=== PATIENT | male | born 1935 | race Caucasian/White ===

== ENCOUNTER 2019-10-01 05:47 | Day surgery (SDC) | payer SELFPAY | END 2019-10-01 09:29 | disposition home or self-care (01) | PROVIDERS: Family Provider Family Medicine; Visit Provider Thoracic Surgery (Cardiothoracic Vascular Surgery) | DX: T82.897A Other specified complication of cardiac prosthetic devices, implants and grafts, initial encounter (principal); Z87.891 Personal history of nicotine dependence; J44.9 Chronic obstructive pulmonary disease, unspecified; I25.2 Old myocardial infarction; I48.91 Unspecified atrial fibrillation; I11.0 Hypertensive heart disease with heart failure; I50.9 Heart failure, unspecified; Z79.01 Long term (current) use of anticoagulants; I25.10 Atherosclerotic heart disease of native coronary artery without angina pectoris; Z82.49 Family history of ischemic heart disease and other diseases of the circulatory system | CPT/HCPCS: 11042; 36415 ×2; 80048; 81003; 85025; 85610; 85730; J0690; J2001 ×2; J2704; J3010; J3370 ==

== ENCOUNTER → 2019-12-16 09:23 | Outpatient (BNVA) | payer MEDICARE, BC, SELFPAY | PROVIDERS: Family Provider Family Medicine; PCP Family Medicine; Visit Provider Urology | DX: C67.2 Malignant neoplasm of lateral wall of bladder (principal) | CPT/HCPCS: 81001 ==

== ENCOUNTER 2020-03-19 09:27 | Outpatient (CLI) | payer MEDICARE, BC, SELFPAY | END 2020-03-19 09:28 | disposition home or self-care (01) | LOC: LAB 09:28 | PROVIDERS: PCP Family Medicine; Visit Provider Internal Medicine Pulmonary Disease | DX: Z01.89 Encounter for other specified special examinations (principal) | CPT/HCPCS: 36415; 87015; 87102; 87107; 87116; 87206; 87801 ==

== ENCOUNTER → 2020-06-23 14:51 | Outpatient (BNVA) | payer MEDICARE, BC, SELFPAY | PROVIDERS: PCP Family Medicine; Visit Provider Urology | DX: C67.2 Malignant neoplasm of lateral wall of bladder (principal); N20.1 Calculus of ureter; N40.1 Benign prostatic hyperplasia with lower urinary tract symptoms | CPT/HCPCS: 81001 ==

== ENCOUNTER → 2020-07-31 14:35 | Outpatient (BNVA) | payer MEDICARE, BC, SELFPAY | PROVIDERS: PCP Family Medicine; Visit Provider Urology | DX: C67.9 Malignant neoplasm of bladder, unspecified (principal); N40.1 Benign prostatic hyperplasia with lower urinary tract symptoms | CPT/HCPCS: 81003 ==

== ENCOUNTER 2020-08-05 12:09 | Outpatient (CLI) | payer MEDICARE, BC, SELFPAY ==
--- NOTE | 2020-08-05 12:30 | CT_ITS ---
WS: [id number] CT scan of the chest without IV contrast, additional two-dimensional coronal and sagittal reconstruct ion was performed. 08/05/2020 Clinical Data: Lung cancer Comparison: CT chest, 12/04/2015. DLP: 720.[address] scans at [facility] use at least one of these dose optimization techniques: automat ed exposure control; mA and/or kV adjustment per patient size (includes targeted exams where dose is matched to clinical indication); or iterative reconstruction. Findings: There are severe emphysematous changes throughout both lungs. There are 2 pleural-based densities in the right upper lobe with significant interstitial changes throughout the right upper lobe. There is bilateral hilar, middle mediastinal and subcarinal adenopathy. There is a 0.8 cm nodule in the lingul a. No effusions are seen. The heart is enlarged with pacemaker wires within. There are coronary arter y calcifications. The pulmonary artery is enlarged to 3.5 cm. The thoracic aorta shows calcification in the wall but no aneurysm. No pericardial effusion is present. There is coronary artery calcificati on. The upper abdomen demonstrate no change from before. The bones of the thorax show osteoarthritic change but no metastatic disease. CT/CT chest wo con [id number] Impression: 1. Severe emphysema throughout both lungs. 2. Pleural-based densities and scarring in right upper lobe with significant in terstitial change throughout the right upper lobe. 3. Hilar, middle mediastinal and subcarinal adenopathy. 4. 0.8 cm lingular nodule. 5. Cardiomegaly with pulmonary artery enlargement.
== END 2020-08-05 12:10 | disposition home or self-care (01) ==
LOC: RADWPI 12:18
PROVIDERS: PCP Family Medicine; Visit Provider Internal Medicine Critical Care Medicine
DX: C34.90 Malignant neoplasm of unspecified part of unspecified bronchus or lung (principal); J43.9 Emphysema, unspecified; R59.0 Localized enlarged lymph nodes; I51.7 Cardiomegaly
CPT/HCPCS: 71250

== ENCOUNTER → 2020-12-16 14:18 | Outpatient (BNVA) | payer MEDICARE, BC, SELFPAY | PROVIDERS: PCP Family Medicine; Visit Provider Urology | DX: C67.4 Malignant neoplasm of posterior wall of bladder (principal); N40.1 Benign prostatic hyperplasia with lower urinary tract symptoms | CPT/HCPCS: 81003 ==

== ENCOUNTER 2021-03-05 15:05 | Outpatient (CLI) | payer MEDICARE, BC, SELFPAY ==
--- NOTE | 2021-03-05 15:11 | CT_ITS ---
WS: [id number] CT CHEST WITHOUT INTRAVENOUS CONTRAST HISTORY: Lung nodules TECHNIQUE: Contiguous 5 mm axial imaging performed on the thorax. Coronal and sagittal reformats are submitted. All CT scans at [facility] use at least one of these dose optimization techniq ues: automated exposure control; mA and/or kV adjustment per patient size (includes targeted exams wh ere dose is matched to clinical indication); or iterative reconstruction. CONTRAST: None DLP: 735.21 mGycm COMPARISON: 08/05/2020 and 12/04/2015, PET/CT 04/18/2020 Lungs and central airway: Severe chronic emphysema. Moderate fibrotic changes and slight volume loss of the RIGHT lung. 10 mm nodule at the RIGHT hilum. 14 mm nodule periphery the RIGHT upper lobe not s ignificantly changed. Additional 13 mm solid nodule periphery of the RIGHT upper lobe has slightly in creased in size since 08/05/2020. There is an additional irregular shaped opacification at the medial RIGHT lung base with calcification. This area measures 3.8 x 4.2 cm which is significantly progressed since the prior study. 8mm lingular nodule is stable. Pleura: Normal. No pleural effusion. Heart and pericardium: Severe cardiomegaly with cardiac pacer. The pulmonary artery is severely dilat ed measuring up to 3.8 cm. Extensive atherosclerosis of aorta with mild ectasia. Mediastinum and connor: Small axillary, mediastinal or hilar lymph nodes. No significant increase in si ze of the indeterminate RIGHT hilar lymph nodes measuring up to 10 mm. Vessels: Marked dilatation of the pulmonary artery measuring 3.8 cm. Extensive atherosclerosis aorta. Chest wall and lower neck: No interval change. Upper abdomen: Mild nodularity at the LEFT adrenal gland is unchanged. Unenhanced imaging of the live r is negative for masses. Osseous structures: Increase in thoracic kyphosis. Bones are osteopenic. CT/CT chest wo con [id number] IMPRESSION: 1. Stable lingular nodule at 8 mm. 2. 13 mm nodule RIGHT upper lobe is new since 08/05/2020. Metastatic or primary lung cancer should be considered. 3. Dense opacification at the medial RIGHT lung base measures 3.8 x 4.2 cm. Di fferential includes pneumonia and neoplastic disease. 4. Stable RIGHT upper lobe 14 mm nodule. 5. Severe cardiomegaly. 6. No increase in size of indeterminate hilar lymph nodes.
== END 2021-03-05 15:06 | disposition home or self-care (01) ==
LOC: RADWPI 15:11
PROVIDERS: PCP Family Medicine; Visit Provider Internal Medicine Critical Care Medicine
DX: J44.9 Chronic obstructive pulmonary disease, unspecified (principal); R91.8 Other nonspecific abnormal finding of lung field; I51.7 Cardiomegaly
CPT/HCPCS: 71250

== ENCOUNTER → 2021-03-17 15:37 | Outpatient (BNVA) | payer MEDICARE, BC, SELFPAY | PROVIDERS: PCP Family Medicine; Visit Provider Urology | DX: C67.4 Malignant neoplasm of posterior wall of bladder (principal); N40.1 Benign prostatic hyperplasia with lower urinary tract symptoms | CPT/HCPCS: 81003 ==

== ENCOUNTER 2021-06-15 15:37 | Outpatient (CLI) | payer MEDICARE, BC, SELFPAY ==
[2021-06-16 13:08] LABS: Alpha 1 Antitrypsin 114 mg/dL (83-199)
== END 2021-06-15 15:38 | disposition home or self-care (01) ==
LOC: LAB 15:44
PROVIDERS: PCP Family Medicine; Visit Provider Internal Medicine Critical Care Medicine
DX: J44.9 Chronic obstructive pulmonary disease, unspecified (principal)
CPT/HCPCS: 36415; 82103

== ENCOUNTER → 2021-10-26 15:10 | Outpatient (BNVA) | payer MEDICARE, BC, SELFPAY | PROVIDERS: PCP Family Medicine; Visit Provider Urology | DX: C67.4 Malignant neoplasm of posterior wall of bladder (principal); N40.1 Benign prostatic hyperplasia with lower urinary tract symptoms | CPT/HCPCS: 81003 ==

== ENCOUNTER → 2022-03-28 14:15 | Outpatient (BNVA) | payer MEDICARE, BC, SELFPAY | PROVIDERS: PCP Family Medicine; Visit Provider Internal Medicine Pulmonary Disease | DX: I48.91 Unspecified atrial fibrillation (principal); J44.9 Chronic obstructive pulmonary disease, unspecified; C34.90 Malignant neoplasm of unspecified part of unspecified bronchus or lung; I42.9 Cardiomyopathy, unspecified; I11.9 Hypertensive heart disease without heart failure; J96.11 Chronic respiratory failure with hypoxia; I50.9 Heart failure, unspecified; Z87.891 Personal history of nicotine dependence; E78.5 Hyperlipidemia, unspecified; I25.10 Atherosclerotic heart disease of native coronary artery without angina pectoris; I10 Essential (primary) hypertension; Z95.810 Presence of automatic (implantable) cardiac defibrillator; I50.22 Chronic systolic (congestive) heart failure | CPT/HCPCS: 99204; 99214 ==

== ENCOUNTER → 2022-06-29 12:38 | Outpatient (BNVA) | payer MEDICARE, BC, SELFPAY | PROVIDERS: PCP Family Medicine; Visit Provider Internal Medicine Pulmonary Disease | DX: J44.9 Chronic obstructive pulmonary disease, unspecified (principal); J96.11 Chronic respiratory failure with hypoxia; R91.8 Other nonspecific abnormal finding of lung field; Z87.891 Personal history of nicotine dependence; I25.5 Ischemic cardiomyopathy; I25.2 Old myocardial infarction; I25.10 Atherosclerotic heart disease of native coronary artery without angina pectoris; I48.20 Chronic atrial fibrillation, unspecified; Z79.01 Long term (current) use of anticoagulants; Z95.0 Presence of cardiac pacemaker; E88.01 Alpha-1-antitrypsin deficiency; Z53.29 Procedure and treatment not carried out because of patient's decision for other reasons | CPT/HCPCS: 99214 ==

== ENCOUNTER → 2022-09-16 11:01 | Outpatient (BNVA) | payer MEDICARE, BC, SELFPAY | PROVIDERS: PCP Family Medicine; Visit Provider Internal Medicine Cardiovascular Disease | DX: I42.9 Cardiomyopathy, unspecified (principal); I11.0 Hypertensive heart disease with heart failure; I50.22 Chronic systolic (congestive) heart failure; I25.10 Atherosclerotic heart disease of native coronary artery without angina pectoris; I25.2 Old myocardial infarction; Z87.891 Personal history of nicotine dependence; I48.21 Permanent atrial fibrillation; Z79.01 Long term (current) use of anticoagulants | CPT/HCPCS: 93284; 99214 ==

== ENCOUNTER → 2022-10-25 14:10 | Outpatient (BNVA) | payer MEDICARE, BC, SELFPAY | PROVIDERS: PCP Family Medicine; Visit Provider Urology | DX: C67.4 Malignant neoplasm of posterior wall of bladder (principal); N30.01 Acute cystitis with hematuria | CPT/HCPCS: 52000; 87086; 99213 ==

== ENCOUNTER → 2022-12-27 15:19 | Outpatient (BNVA) | payer MEDICARE, BC, SELFPAY | PROVIDERS: PCP Family Medicine; Visit Provider Internal Medicine Pulmonary Disease | DX: J44.9 Chronic obstructive pulmonary disease, unspecified (principal); J96.11 Chronic respiratory failure with hypoxia; R91.8 Other nonspecific abnormal finding of lung field; Z87.891 Personal history of nicotine dependence; I48.20 Chronic atrial fibrillation, unspecified; Z79.01 Long term (current) use of anticoagulants; I25.5 Ischemic cardiomyopathy; I25.2 Old myocardial infarction; I25.10 Atherosclerotic heart disease of native coronary artery without angina pectoris; Z95.810 Presence of automatic (implantable) cardiac defibrillator | CPT/HCPCS: 99214 ==

== ENCOUNTER 2023-01-19 07:02 | Outpatient (CLI) | payer MEDICARE, BC, SELFPAY ==
--- NOTE | 2023-01-19 | XR_ITS ---
WS: [id number] XR tibia fibula LT 2V [id number] REASON FOR EXAM: PAIN IN LEFT LEG FINDINGS: Tibia and fibula are intact without fracture, periosteal reaction, or focal bone lesion. Extensive arterial vascular calcification. XR/XR tibia fibula LT 2V [id number] IMPRESSION: No significant bone abnormality.
--- NOTE | 2023-01-19 | US_ITS ---
WS: [id number] LEFT LOWER EXTREMITY VENOUS ULTRASOUND EXAMINATION CLINICAL INFORMATION: PAIN IN LOWER LIMB COMPARISON: None. FINDINGS: Thigh veins The left common femoral, femoral, popliteal, proximal medial saphenous, deep femoral veins are patent and free of thrombus. The veins are normally compressible, and have normal phasic flow and augmentat ion response. Calf veins The paired peroneal and posterior tibial calf veins are patent bilaterally. Subcutaneous edema in the area of pain LEFT anterior lower leg with suspected underlying heterogeneou s hematoma measuring 6.8 x 2.1 x 3.7 cm US/ROR venous duplex LE IMPRESSION: Technically difficult study 1. No evidence of LEFT lower extremity DVT. 2. Suspected hematoma in the area of pain measuring 6.8 x 2.1 x 3.7 cm
== END 2023-01-19 07:03 | disposition home or self-care (01) ==
LOC: RADOUTREAD 01-20 07:05
PROVIDERS: PCP Family Medicine; Visit Provider Nurse Practitioner Family
DX: C67.2 Malignant neoplasm of lateral wall of bladder (principal); N30.01 Acute cystitis with hematuria
CPT/HCPCS: 52000

== ENCOUNTER 2023-01-28 12:40 | Emergency (ER) | payer MEDICARE, BC, SELFPAY ==
[2023-01-28 12:41] VITALS: BP 110/50; PULSE 69; RESP 18; TEMP 37.1; O2SAT 96
[2023-01-28 13:05] VITALS: BP 110/50; PULSE 88; RESP 14; O2SAT 95
--- NOTE | 2023-01-28 13:08 | ED_ITS ---
HPI - Extremity Problem General: Chief complaint: Extremity Problem,Nontraumatic Stated complaint: LEFT LEG SWELLING Time Seen by Provider: 01/28/23 12:43 History of Present Illness: Patient comes in with redness, swelling, and pain in his left lower extremity. States that a couple weeks ago he noticed a bruise to his left lower leg. States he was seen and had an x-ray and an ultrasound that were both unremarkable. States that over the last week or so he has noticed the area b ecoming more red and swollen. States he started taken Bactrim that he has at home 3 days ago but only takes it once a day and does not take it regularly. 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 CHF (congestive heart failure) Coronary artery disease Dyslipidemia Dyspnea Emphysema (subcutaneous) (surgical) resulting from a procedure Erectile dysfunction Hypertension Lung nodule Malignant neoplasm of posterior wall of urinary bladder Myocardial infarction Obstructive sleep apnea Oxygen dependent Pacemaker Surgical History Status post biventricular cardiac pacemaker insertion Family History Mother CAD (coronary artery disease) Social History Smoking and tobacco status: former smoker Quit status (tobacco): has quit using tobacco Year quit tobacco: 1994 - .5 PPD x 40 Years Alcohol intake: current Alcohol intake frequency: 0-2 Drinks per Day Substance/Drug Use: never Adopted: No Caregiver/support person: No Lives independently: No Household members: spouse Marital status: / Current occupational status: retired Do you think of yourself as: Straight/Heterosexual Current gender identity: Male Physical Exam Const: COMMON NORMALS: no acute distress, patient oriented x3 and alert HENMT: COMMON NORMALS: normocephalic and atraumatic HEAD & SCALP: normocephalic and atraumatic Eye: COMMON NORMALS: Equal, round and reactive pupils present and EOMs intact bilaterally PUPIL: Yes Equal, round and reactive pupils present Neck/C-Spine: COMMON NORMALS: full ROM and supple Cardio: COMMON NORMALS: regular rate and regular rhythm RATE: regular rate RHYTHM: regular rhythm GI: COMMON NORMALS: Normal to inspection, nondistended, normoactive bowel sounds present, Soft to palpation and non-tender PALPATION: Yes Soft to palpation Extremity: COMMON NORMALS: full ROM OTHER: erythema, heat to touch, and swelling of his left lower leg. He also has bruising in the toes of his left foot Neuro: COMMON NORMALS: patient oriented x3 SENSORIUM/ORIENTATION: Yes alert Psych: COMMON NORMALS: mental status grossly normal and cooperative Course Vital Signs: Vital signs: Vital Signs Temperature 98.7 F 01/28/23 12:41 Pulse Rate 69 01/28/23 12:41 Respiratory Rate 18 01/28/23 12:41 Blood Pressure 110/50 01/28/23 12:41 Pulse Oximetry 96 01/28/23 12:41 Oxygen Delivery Me thod Nasal Cannula 01/28/23 12:41 Oxygen Flow Rate 3 01/28/23 12:41 MDM - Extremity (Nontraumatic) Medical Decision Making Patient comes in with redness, swelling, and pain in his left lower extremity. States that a couple weeks ago he noticed a bruise to his left lower leg. States he was seen and had an x-ray and an ultrasound that were both unremarkable. States that over the last week or so he has noticed the area becoming more red and swollen. States he started taken Bactrim that he has at home 3 days ago but only takes it once a day and does not take it regularly. On physical exam he has erythema, heat to touch, and swelling of his left lower leg. He also has bruising in the toes of his left foot likely secondary to the injury to his left lower leg. Patient is on a blood thinner, and it appears that what started out as a mechanical injury has become a cellulitis. The patient states he would just like me to get him on some antibiotics and let him go home. He denies fever, vomiting, worsening shortness of breath or other symptoms. Will start him on clindamycin 450 mg 3 times a day for 5 days according to up-to-date. We will also treat pain with p.o. Toradol. Will discharge home at this time with precautions to return for worsening or changing symptoms. Discharge Plan Discharge Patient Disposition: Home Clinical Impression: Cellulitis of left leg Condition: Stable Prescriptions: New clindamycin HCl 150 mg capsule 450 mg PO Q8H 5 Days Qty: 45 0RF tramadol 50 mg tablet 25 mg PO Q6H PRN (Reason: pain) Qty: 7 0RF No Action (DME) oxygen-air delivery systems Device See Rx Instructions .ROUTE .MEDSUPPLY Qty: 1 Rx Instructions: As directed levothyroxine [Synthroid] 100 mcg tablet 100 mcg PO DAILY potassium chloride 10 mEq capsule, extended release 10 meq PO DAILY warfarin 10 mg tablet 10 mg PO DAILY ferrous sulfate [Feosol] 325 mg (65 mg iron) tablet 325 mg PO DAILY guaifenesin [Mucinex] 600 mg tablet extended release 12hr 600 mg PO BID PRN (Reason: congestion) Qty: 60 3RF sulfamethoxazole-trimethoprim 800-160 mg tablet 1 tab PO BID Qty: 10 0RF Rx Instructions: Hold warfarin Metamucil 3.4 gram/5.4 gram powder 1 tbsp PO DAILY Rx Instructions: mix into at least 8 oz of water or juice before administering albuterol sulfate 90 mcg/actuation HFA aerosol inhaler 2 puff inhalation Q6H PRN (Reason: shortness of breath or wheezing) Qty: 8.5 11RF albuterol sulfate 2.5 mg /3 mL (0.083 %) solution for nebulization 2.5 mg INHALATION Q4H PRN (Reason: shortness of breath or wheezing) Qty: 180 5RF azelastine 137 mcg (0.1 %) aerosol,spray 1 spray intranasal BID 30 Days Qty: 30 4RF Rx Instructions: administer into each nostril furosemide 20 mg tablet 20 mg PO DAILY PRN (Reason: edema) Qty: 30 3RF Rx Instructions: Use as needed for leg swelling and shortness of breath Discharge Orders: Discharge ED (Routine); Ordered 01/28/23 Ordered By: Zachary Chandra Referrals: Zachary Celis MD [Primary Care Provider] - Patient Instructions: Cellulitis (ED) Coding Level of Care Code ED Acquisition Consultant for Kelly Valiente
== END 2023-01-28 14:10 | disposition home or self-care (01) ==
PROVIDERS: Emergency Provider Emergency Medicine; PCP Family Medicine
DX: L03.116 Cellulitis of left lower limb (principal); Z79.01 Long term (current) use of anticoagulants; Z85.51 Personal history of malignant neoplasm of bladder; I11.0 Hypertensive heart disease with heart failure; I50.9 Heart failure, unspecified; I25.10 Atherosclerotic heart disease of native coronary artery without angina pectoris; E78.5 Hyperlipidemia, unspecified; I25.2 Old myocardial infarction; Z95.0 Presence of cardiac pacemaker; Z87.891 Personal history of nicotine dependence
CPT/HCPCS: 99283

== ENCOUNTER 2023-02-02 15:23 | Outpatient (CLI) | payer MEDICARE, BC, SELFPAY ==
[2023-02-02 16:14] LABS: INR 12.33 (0.8-1.2)
== END 2023-02-02 15:24 | disposition home or self-care (01) ==
LOC: LAB 15:23
PROVIDERS: PCP Family Medicine; Visit Provider Nurse Practitioner Family
DX: Z51.81 Encounter for therapeutic drug level monitoring (principal)
CPT/HCPCS: 85610

== ENCOUNTER 2023-02-03 14:26 | Outpatient (CLI) | payer MEDICARE, BC, SELFPAY ==
[2023-02-03 15:45] LABS: INR 10.55 (0.8-1.2)
== END 2023-02-03 14:27 | disposition home or self-care (01) ==
PROVIDERS: PCP Family Medicine; Visit Provider Nurse Practitioner Family
DX: Z51.81 Encounter for therapeutic drug level monitoring (principal)
CPT/HCPCS: 85610

== ENCOUNTER 2023-02-03 15:12 | Inpatient (IN) | payer MEDICARE, BC, SELFPAY ==
[2023-02-03] VITALS (21 sets, daily range): BP systolic 97–132; BP diastolic 37–76; PULSE 68–78; RESP 16–32; TEMP 36.4–37.1; O2SAT 92–100; BMI 26.6; BMI 26.3
--- NOTE | 2023-02-03 15:37 | W.ED.RECABL ---
HPI - Recheck/Abnormal Lab/Rx General: Chief Complaint: Recheck/Abnormal Lab/Rx Stated Complaint: abnormal Labs Time Seen by Provider: 02/03/23 15:32 History of Present Illness: 87-year-old male presents emergency department chief complaint of having elevated INR patient comes from [facility] for an INR greater than 8 patient apparently is on warfarin he reports last known use was yesterday he does not recall any bouts of active bleeding or any GI at this time patient presents to the ER for further assessment and management. Patient reports generalized malaise and fatigue with no other associated symptoms. Review of Systems General: Reports: 10 or more systems reviewed and unremarkable except in HPI and below Const: Reports: fatigue and malaise; Denies: fever(s) or chills Eyes: Denies: change in vision or blurry vision Card: Denies: chest pain or palpitations Resp: Denies: dyspnea or productive cough GI: Denies: abdominal pain, nausea or vomiting : Denies: flank pain Musc: Denies: extremity pain or extremity swelling Skin/Breast: Denies: rash or pruritus Neuro: Denies: headache(s) Psych: Denies: anxiety or depression Alvarado/Lymph: Denies: easy bleeding All/Imm: Denies: urticaria, throat swelling or facial swelling PFSH ED PFSH: Medical History [id number] deficiency Anticoagulant long-term use Atrial fibrillation Bladder cancer 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 CHF (congestive heart failure) Coronary artery disease Dyslipidemia Dyspnea Emphysema (subcutaneous) (surgical) resulting from a procedure Erectile dysfunction Hypertension Lung nodule Malignant neoplasm of posterior wall of urinary bladder Myocardial infarction Obstructive sleep apnea Oxygen dependent Pacemaker Surgical History Status post biventricular cardiac pacemaker insertion Family History Mother CAD (coronary artery disease) Social History Smoking and tobacco status: former smoker Quit status (tobacco): has quit using tobacco Year quit tobacco: 1994 - .5 PPD x 40 Years Alcohol intake: current Alcohol intake frequency: 0-2 Drinks per Day Substance/Drug Use: never Adopted: No Caregiver/support person: No Lives independently: No Household members: spouse Marital status: / Current occupational status: retired Do you think of yourself as: Straight/Heterosexual Current gender identity: Male Physical Exam Narrative: EXAM NARRATIVE: Patient appears somewhat pale on exam however appears in no obvious acute distress nontoxic-appearing patient is very hard of hearing on exam Const: COMMON NORMALS: no acute distress, patient oriented x3 and healthy appearing HENMT: COMMON NORMALS: normocephalic and atraumatic HEAD & SCALP: normocephalic and atraumatic Eye: COMMON NORMALS: Equal, round and reactive pupils present and EOMs intact bilaterally PUPIL: Yes Equal, round and reactive pupils present Neck/C-Spine: COMMON NORMALS: full ROM, supple and no JVD Lymph: LYMPHATIC: no lymphadenopathy noted Chest: COMMONS NORMALS: normal inspection of the chest and normal palpation of entire chest wall Resp: COMMON NORMALS: normal respiratory effort, No retractions and clear to auscultation bilaterally EFFORT & INSPECTION: Yes able to speak in complete sentences and Yes symmetric chest movement AUSCULTATION: clear to auscultation bilaterally Cardio: COMMON NORMALS: no JVD, regular rate and regular rhythm RATE: regular rate RHYTHM: regular rhythm GI: COMMON NORMALS: Normal to inspection, nondistended, normoactive bowel sounds present, Soft to palpation and non-tender INSPECTION: Yes normal to inspection PALPATION: Yes Soft to palpation : COMMON NORMALS: Yes no CVA tenderness BLADDER/KIDNEY EXAM: Yes no CVA tenderness Back/Pelvis: COMMON NORMALS: no CVA tenderness Extremity: COMMON NORMALS: normal to inspection and full ROM Neuro: COMMON NORMALS: patient oriented x3, CN's II-XII intact bilaterally, moves all extremities and no focal motor deficits Psych: COMMON NORMALS: mental status grossly normal, Normal thought process present, cooperative and normal affect THOUGHT PROCESS: Normal thought process present Skin: COMMON NORMALS: no rashes or lesions noted GENERAL SKIN EXAM: no rashes or lesions noted Course Vital Signs: Vital signs: Vital Signs Temperature 98.5 F 02/03/23 20:07 Pulse Rate 70 02/03/23 20:07 Respiratory Rate 16 02/03/23 20:07 Blood Pressure 105/39 02/03/23 20:07 Pulse Oximetry 100 02/03/23 20:07 Oxygen Delivery Me thod Nasal Cannula 02/03/23 20:07 Oxygen Flow Rate 5 02/03/23 20:07 MDM - Recheck/Abnormal Lab/Rx Medical Decision Making Due to patient's symptoms and basic lab work imaging will be obtained we will continue to follow Patient was found to have a supratherapeutic INR IR greater than 10.8 patient was provided a dose of vitamin K patient CT imaging came back unremarkable as well as hemoglobin was found be low however it is 7.1 due to this to use of packed red blood cells were given followed by [facility] discussed patient's case with Dr. Felipe has accepted the patient to the intensive care unit. Lab Data 02/03/23 15:49 02/03/23 15:49 Radiology Impressions Abdomen/Pelvis CT 02/03/23 17:01 IMPRESSION: 1. Diverticulosis of the colon without diverticulitis. 2. Larger 4.4 cm paratracheal lymph node. A malignant neoplastic process is not excluded. 3. Right lower lobe opacities most likely represents pneumonia or aspiration. 4. Ground-glass opacities in the left lung base could represent pneumonia or pulmonary edema. 5. Stable fluid density lesion in the right retrocrural location. This could represent a congenital cyst or low-density lymph nodes. 6. Stable 7 mm left upper lobe pulmonary nodule. Near 2 year stability favors a benign process. COMMENTS: 1. Consistent with the [employer]'s Incidental Findings Committee white paper (J Am Marlene Radiol 2018): Any incidental renal lesion less than 1 cm or classified as too small to characterize, or any incidental cystic renal lesion characterized as simple-appearing, is likely benign. No follow-up imaging is recommended for these lesions per consensus recommendations based on imaging criteria. 2. For patients with an IVC filter, recommend assessment for a management plan for the patient's IVC filter. If there is no established management plan, recommend referral to an interventional clinician on a nonemergent basis for evaluation. Chest CT 02/03/23 18:29 IMPRESSION: 1. Masslike consolidation in the infrahilar right lower lobe with filling defects in the bronchi. This could represent pneumonia but a neoplastic process is not excluded. Follow-up with bronchoscopy or tissue sampling is recommended. 2. New nodules in the right upper and middle lobes and stable 7 mm lingular nodule. Metastatic disease is not excluded. 3. Patchy pneumonia throughout the right lung. 4. Ground-glass opacities in the left lung could represent pulmonary edema or pneumonia. 5. Prominent mediastinal, right paratracheal, and retrocrural lymph nodes. Malignant neoplasm or metastasis is not excluded. Laboratory Results WBC 6.2 10^3/uL (4.0-10.0) 02/03/23 15:49 RBC 2.29 10^6/uL (4.1-5.3) L 02/03/23 15:49 Hgb 7.1 g/dL (11.7-16.6) L 02/03/23 15:49 Hct 24.4 % (42.0-52.0) L 02/03/23 15:49 MCV 106.6 fl (80-94) H 02/03/23 15:49 MCH 31.0 pg (28.0-34.0) 02/03/23 15:49 MCHC 29.1 g/dL (30.0-36.0) L 02/03/23 15:49 RDW 15.2 % (12.1-15.1) H 02/03/23 15:49 Plt Count 271 10^3/cmm (130-400) 02/03/23 15:49 MPV 10.9 fL (7.4-10.4) H 02/03/23 15:49 Neut % (Auto) 71.1 % 02/03/23 15:49 Lymph % (Auto) 15.1 % 02/03/23 15:49 Eagle % (Auto) 10.5 % 02/03/23 15:49 Eos % (Auto) 2.3 % 02/03/23 15:49 Baso % (Auto) 0.5 % 02/03/23 15:49 Neut # (Auto) 4.43 10^3/uL (1.8-7.7) 02/03/23 15:49 Lymph # (Auto) 0.9 10^3/uL (0.8-4.8) 02/03/23 15:49 Eagle # (Auto) 0.7 10^3/uL (0.2-0.9) 02/03/23 15:49 Eos # (Auto) 0.1 10^3/uL (0.0-0.8) 02/03/23 15:49 Baso # (Auto) 0.0 10^3/uL (0.0-0.1) 02/03/23 15:49 Nucleated RBC % (auto) 0 % 02/03/23 15:49 Nucleated RBCs # 0.0 /100WBC 02/03/23 15:49 PT 88.00 SECONDS (12.1-14.9) H 02/03/23 15:49 INR 10.61 (0.8-1.2) H* 02/03/23 15:49 APTT 163.7 SECONDS (23.9-36.7) H* 02/03/23 15:49 Sodium 137 mmol/L (136-145) 02/03/23 15:49 Potassium 4.6 mmol/L (3.5-5.1) 02/03/23 15:49 Chloride 99 mmol/L (98-107) 02/03/23 15:49 Carbon Dioxide 29 mmol/L (22-29) 02/03/23 15:49 Anion Gap 13.6 (5-19) 02/03/23 15:49 BUN 20 mg/dL (8-23) 02/03/23 15:49 Creatinine 0.5 mg/dL (0.7-1.2) L 02/03/23 15:49 GFR Calculation Not Reportable 02/03/23 15:49 Glucose 110 mg/dL (65-115) 02/03/23 15:49 Calculated Osmolality 287 mOsm/kg (285-295) 02/03/23 15:49 Calcium 8.6 mg/dL (8.5-10.5) 02/03/23 15:49 Total Bilirubin 0.6 mg/dL (0.15-1.2) 02/03/23 15:49 AST 27 U/L (0-40) 02/03/23 15:49 ALT 10 U/L (0-41) 02/03/23 15:49 Alkaline Phosphatase 99 U/L (40-130) 02/03/23 15:49 Troponin T Baseline 21 ng/L (0-15) H 02/03/23 15:49 Troponin T 120 Minute 19.04 ng/L (0-15) H 02/03/23 18:02 Delta Troponin T -1.96 ABS# (0-10) L 02/03/23 18:02 NT-Pro-B Natriuret Pep 2326 pg/mL (0-450) H 02/03/23 15:49 Total Protein 6.9 g/dL (6.6-8.7) 02/03/23 15:49 Albumin 3.1 g/dL (3.5-5.2) L 02/03/23 15:49 Globulin 3.8 g/dL (1.3-4.6) 02/03/23 15:49 Blood Type O Positive 02/03/23 17:03 Rho(D) Type Positive 02/03/23 17:03 Antibody Screen Negative 02/03/23 17:03 Crossmatch See Detail 02/03/23 17:03 Discharge Plan Discharge Patient Disposition: Admitted As Inpatient Clinical Impression: Supratherapeutic INR, Symptomatic anemia, Lung mass Condition: Stable Coding Level of Care Code ED Customer Order Clerk for Kelly Valiente
[2023-02-03 15:58] LABS: Basophils % 0.5 %; Eosinophils # 0.1 10^3/uL (0.0-0.8); Eosinophils % 2.3 %; Hematocrit 24.4 % (42.0-52.0); Hemoglobin 7.1 g/dL (11.7-16.6); Lymphocytes # 0.9 10^3/uL (0.8-4.8); Lymphocytes % 15.1 %; Mean Corpuscular HGB Conc 29.1 g/dL (30.0-36.0); Mean Corpuscular Volume 106.6 fl (80-94); Mean Platelet Volume 10.9 fL (7.4-10.4); Monocytes # 0.7 10^3/uL (0.2-0.9); Monocytes % 10.5 %; Neutrophils # 4.43 10^3/uL (1.8-7.7); Neutrophils % 71.1 %; Nucleated Red Blood Cells % 0 %; Platelet Count 271 10^3/cmm (130-400); Red Blood Count 2.29 10^6/uL (4.1-5.3); Red Cell Distribution Width 15.2 % (12.1-15.1); White Blood Count 6.2 10^3/uL (4.0-10.0)
[2023-02-03 16:23] LABS: Alanine Aminotransferase 10 U/L (0-41); Albumin Level 3.1 g/dL (3.5-5.2); Alkaline Phosphatase 99 U/L (40-130); Anion Gap 13.6 (5-19); Aspartate Amino Transferase 27 U/L (0-40); Blood Urea Nitrogen 20 mg/dL (8-23); Calcium 8.6 mg/dL (8.5-10.5); Carbon Dioxide 29 mmol/L (22-29); Chloride 99 mmol/L (98-107); Globulin 3.8 g/dL (1.3-4.6); Glucose 110 mg/dL (65-115); Osmolality Calculated 287 mOsm/kg (285-295); Potassium 4.6 mmol/L (3.5-5.1); Sodium 137 mmol/L (136-145); Total Bilirubin 0.6 mg/dL (0.15-1.2); Total Protein 6.9 g/dL (6.6-8.7)
[2023-02-03 16:34] LABS: INR 10.61 (0.8-1.2); Partial Thromboplastin Time 163.7 SECONDS (23.9-36.7)
--- NOTE | 2023-02-03 17:01 | CTR_ITS ---
PROCEDURE INFORMATION: Exam: CT Abdomen And Pelvis With Contrast Exam date and time: 02/03/2023 6:21 PM Age: 87 years old Clinical indication: Other: Anemia TECHNIQUE: Imaging protocol: Computed tomography of the abdomen and pelvis with contrast. Radiation optimization: All CT scans at this facility use at least one of these dose optimization techniques: automated exposure control; mA and/or kV adjustment per patient size (includes targeted exams where dose is matched to clinical indication); or iterative reconstruction. Contrast material: OMNI 350; Contrast volume: 100 ml; Contrast route: INTRAVENOUS (IV); REPORTING DATA: Count of CT and Cardiac NM exams in prior 12 months: This patient has received 0 known CTs and 0 known cardiac nuclear medicine studies in the 12 months prior to the current study. COMPARISON: CT chest wo con [id number] 03/05/2021 3:19 PM RADIATION DOSE METRICS: Total DLP (mGy-cm): 513.67 FINDINGS: Limitations: Evaluation of the bowel is limited due to motion artifact. Tubes, catheters and devices: Pacemaker leads in the heart. Lungs: Airspace opacities throughout the right lower lobe. Patchy ground-glass opacities in the left lung base. Stable 7 mm nodule in the lingula. Pleural spaces: Trace right pleural fluid. Heart: Cardiomegaly. Liver: Normal. No mass. Gallbladder and bile ducts: Normal. No calcified stones. No ductal dilation. Pancreas: Normal. No ductal dilation. Spleen: Normal. No splenomegaly. Adrenal glands: Normal. No mass. Kidneys and ureters: Right renal cyst, Hounsfield units less than 20. Hypodense lesions in the left kidney are too small to characterize but are most likely cysts. No follow-up imaging is recommended. No calculus or hydronephrosis. Stomach and bowel: Diverticulosis of the distal colon. No diverticulitis. Scattered stool throughout the colon. The stomach and small bowel are unremarkable. No wall thickening or obstruction. Appendix: The appendix is not visualized. No secondary signs of appendicitis. Intraperitoneal space: Unremarkable. No free air. No significant fluid collection. Vasculature: Infrarenal IVC filter. Arterial calcifications. 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 Lymph nodes: Larger 4.4 cm paraesophageal lymph node. Urinary bladder: Unremarkable as visualized. Reproductive: Unremarkable as visualized. Bones/joints: Degenerative changes of the spine. No acute fracture. 1.2 cm circumscribed lytic lesion in the L4 vertebral body. Soft tissues: Fat necrosis in the right buttock. Other findings: Stable right retrocrural hypodense lesion, Hounsfield units less than 10. CT/CT abdomen pelvis w con* [id number] IMPRESSION: 1. Diverticulosis of the colon without diverticulitis. 2. Larger 4.4 cm paratracheal lymph node. A malignant neoplastic process is not excluded. 3. Right lower lobe opacities most likely represents pneumonia or aspiration. 4. Ground-glass opacities in the left lung base could represent pneumonia or pulmonary edema. 5. Stable fluid density lesion in the right retrocrural location. This could represent a congenital cyst or low-density lymph nodes. 6. Stable 7 mm left upper lobe pulmonary nodule. Near 2 year stability favors a benign process. COMMENTS: 1. Consistent with the [employer]'s Incidental Findings Committee white paper (J Am Marlene Radiol 2018): Any incidental renal lesion less than 1 cm or classified as too small to characterize, or any incidental cystic renal lesion characterized as simple-appearing, is likely benign. No follow-up imaging is recommended for these lesions per consensus recommendations based on imaging criteria. 2. For patients with an IVC filter, recommend assessment for a management plan for the patient's IVC filter. If there is no established management plan, recommend referral to an interventional clinician on a nonemergent basis for evaluation.
[2023-02-03] MEDS: phytonadione (ADULT) 10 mg/mL Ampule 1 mL 5 MG PO (17:17)
--- NOTE | 2023-02-03 18:08 | PC.NURSE ---
PT REFUSED CARE FOR 2 HOURS DUE TO CONTEMPLATION OF LEAVING AMA. PT WAS EDUCATED BY MYSELF, DR. PASCAL, AND ZANE RN. PT CONTINUED TO DELAY CARE AND MADE THE DECISION AT 1800 TO PROCEED WITH CARE.
[2023-02-03 18:16] LABS: Troponin(5th) Baseline 21 ng/L (0-15)
[2023-02-03] MEDS: iohexol 350 mg/mL 500 mL Btl (per mL) IV (18:17)
--- NOTE | 2023-02-03 18:29 | CTR_ITS ---
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 Radiation optimization: All CT scans at this facility use at least one of these dose optimization techniques: automated exposure control; mA and/or kV adjustment per patient size (includes targeted exams where dose is matched to clinical indication); or iterative reconstruction. REPORTING DATA: Count of CT and Cardiac NM exams in prior 12 months: This patient has received 0 known CTs and 0 known cardiac nuclear medicine studies in the 12 months prior to the current study. COMPARISON: CT chest wo con [id number] 03/05/2021 3:19 PM RADIATION DOSE METRICS: Total DLP (mGy-cm): 372.81 FINDINGS: Tubes, catheters and devices: Left pacemaker with leads in the heart. Lungs: Severe emphysema. Increased masslike consolidation in the infrahilar right lower lobe with extension to the posterior pleura. Filling defects in multiple left lower lobe bronchi. Scattered airspace opacities in the right upper and middle lobes. Airspace opacities throughout the right lower lobe. Ground-glass opacities in the peripheral left upper and lower lobes. Stable 7 mm lingular nodule. New 8 mm right lower lobe nodule. New 12 mm right upper lobe nodule. Pleural spaces: Unremarkable. No pneumothorax. No pleural effusion. Heart: Cardiomegaly. Coronary arteries: Coronary artery calcifications. Lymph nodes: 4.4 cm distal paraesophageal lymph node. Prominent middle mediastinal lymph nodes, the largest in the right paratracheal region measuring 1.4 cm short axis. Vasculature: Unremarkable. No aortic aneurysm. Bones/joints: Curvature of the thoracic spine with degenerative changes. No acute fracture. Soft tissues: Unremarkable. Other findings: Stable 2.0 x 2.0 x 5.2 cm lobulated hypodense structure in the right retrocrural region, Hounsfield units 20. CT/CT chest wo con [id number] IMPRESSION: 1. Masslike consolidation in the infrahilar right lower lobe with filling defects in the bronchi. This could represent pneumonia but a neoplastic process is not excluded. Follow-up with bronchoscopy or tissue sampling is recommended. 2. New nodules in the right upper and middle lobes and stable 7 mm lingular nodule. Metastatic disease is not excluded. 3. Patchy pneumonia throughout the right lung. 4. Ground-glass opacities in the left lung could represent pulmonary edema or pneumonia. 5. Prominent mediastinal, right paratracheal, and retrocrural lymph nodes. Malignant neoplasm or metastasis is not excluded.
[2023-02-03 18:37] LABS: Troponin 5 2HR 19.04 ng/L (0-15)
[2023-02-03 18:42] LABS: Troponin 5 2HR Delta -1.96 ABS# (0-10)
--- NOTE | 2023-02-03 18:52 | ECG_ITS ---
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 Measurements Intervals [place] Rate: 72 P: 0 SC: 0 QRS: 255 QRSD: 173 T: 73 QT: 465 QTc: 512 Interpretive Statements ELECTRONIC VENTRICULAR PACEMAKER ABNORMAL RHYTHM ECG Compared to ECG 08/06/2019 12:56:06 No significant changes Electronically Signed On 02-03-2023 23:02:56 CDT by Soy Gamez M.D. [email or web address] [email or web address] valley community [email or web address]/store/[id number]
[2023-02-03 19:33] LABS: NT Pro B Type Natriuretic Pept 2326 pg/mL (0-450)
--- NOTE | 2023-02-03 20:36 | P.HP_ITS ---
Providers/Chief Complaint Admitting Physician: Theodore Felipe MD Primary Care Provider: Zachary Celis MD Chief Complaint: abnormal Labs History of Present Illness David Ascencio is a 87 year old male with a past medical history of with a past medical history of CHF, chronic respiratory failure, history of bladder cancer, lung cancer, dyslipidemia, NIURKA, emphysema, mild alpha-1 antitrypsin deficiency, atrial fibrillation on Coumadin, hypertension, CAD, severe COPD, suspected lung cancer, patient declined to do any further work-up or surveillance, who presents to [facility] from his primary care provider's office due to concerns for supratherapeutic INR. Patient is very hard of hearing, history taking is quite difficult, he also has some confusion, he is alert to person, to place, not to time, at times he does not follow commands, is hard for me to tell if this is because he is encephalopathic or is really hard of hearing. He denies any history of GI bleeds in the past, denies any bloody or black stools, denies a history of transfusions. He does tell me that he feels weak, he does feel more short of breath. He tells me that what is bothering him today that he has an area of cellulitis, on his left leg that is hurting him, for which she takes clindamycin. He pulls the pill bottle out of his pocket. When asked him if he was , he was unable to give me a straightforward answer, asked him where he lived he was not able to tell me where he lived, I asked him if there was anything bothering him, he did not really give me an answer. Review of Systems Card: Denies: chest pain Resp: Reports: dyspnea GI: Denies: abdominal pain : Denies: difficulty urinating Neuro: Denies: headache(s) Medications/Allergies Home Medications Medication Instructions Recorded Confirmed Last Taken Type oxygen-air delivery systems ##1 10/01/19 02/03/23 Unknown History psyllium husk 3.4 gram/5.4 gram 1 tbsp PO DAILY 10/26/21 02/03/23 02/03/23 History oral powder (Metamucil) albuterol sulfate 2.5 mg/3 mL 2.5 mg (3 mL) inhalation Q4H PRN 03/18/22 02/03/23 Unknown Rx (0.083 %) solution for nebulization shortness of breath or wheezing #180 mL azelastine 137 mcg (0.1 %) nasal 1 spray intranasal BID 30 days #30 05/20/22 02/03/23 02/03/23 Rx spray aerosol mL potassium chloride 10 mEq 10 meq PO DAILY 09/16/22 02/03/23 02/03/23 History capsule,extended release warfarin 10 mg tablet 10 mg PO DAILY 09/16/22 02/03/23 Unknown History clindamycin HCl 150 mg capsule 450 mg PO Q8H 02/03/23 02/03/23 02/03/23 History levothyroxine 75 mcg tablet 75 mcg PO DAILY 02/03/23 02/03/23 02/03/23 History pyridoxine (vitamin B6) 50 mg 50 mg PO DAILY 02/03/23 02/03/23 Unknown History capsule (Vitamin B-6) thiamine HCl (vitamin B1) 50 mg 50 mg PO DAILY 02/03/23 02/03/23 Unknown History tablet (Vitamin B-1) vitamin B complex 1 tab PO DAILY 02/03/23 02/03/23 Unknown History warfarin 5 mg tablet See Rx Instructions .Route .COMPLEX 02/03/23 02/03/23 Unknown History Allergies Allergy/AdvReac Type Severity Reaction Status Date / Time No Known Allergies Allergy Verified 02/03/23 16:11 PFSH Acute PFSH: Medical History (Updated 02/03/23 @ 20:57 by Theodore Felipe MD) Vpkwg-9-urvvlisgbpq deficiency Anticoagulant long-term use Atrial fibrillation Bladder cancer 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 CHF (congestive heart failure) Coronary artery disease Dyslipidemia Dyspnea Emphysema (subcutaneous) (surgical) resulting from a procedure Erectile dysfunction Hypertension Lung nodule Malignant neoplasm of posterior wall of urinary bladder Myocardial infarction Obstructive sleep apnea Oxygen dependent Pacemaker Surgical History (Updated 02/03/23 @ 20:45 by Theodore Felipe MD) H/O bilateral cataract extraction Status post biventricular cardiac pacemaker insertion Family History Mother CAD (coronary artery disease) Social History Smoking and tobacco status: former smoker Quit status (tobacco): has quit using tobacco Year quit tobacco: 1994 - 1.5 PPD x 40 Years Alcohol intake: current Alcohol intake frequency: 0-2 Drinks per Day Substance/Drug Use: never Adopted: No Caregiver/support person: No Lives independently: No Household members: spouse Marital status: / Current occupational status: retired Do you think of yourself as: Straight/Heterosexual Current gender identity: Male Vitals/I&O/Wt Last Vital Signs Temp 98.5 F 02/03/23 20:07 Pulse 74 02/03/23 20:31 Resp 16 02/03/23 20:31 BP 113/76 02/03/23 20:31 Pulse Ox 94 02/03/23 20:31 O2 Del Method Nasal Cannula 02/03/23 20:31 O2 Flow Rate 5 02/03/23 20:31 02/03/23 02/03/23 02/03/23 06:59 14:59 22:59 Intake Total 0 / 0 Balance 0 / 0 Weight last 48 hrs Weight 74.843 kg Physical Exam Const: COMMON NORMALS: no acute distress EXAM LIMITATIONS: altered mental status ORIENTATION/CONSCIOUSNESS: Yes awake, Yes oriented to person, Yes oriented to place and Yes confused; not oriented to time HENMT: COMMON NORMALS: normocephalic HEAD & SCALP: normocephalic Eye: COMMON NORMALS: Equal, round and reactive pupils present and EOMs intact bilaterally Neck/C-Spine: COMMON NORMALS: full ROM and no lymphadenopathy Lymph: LYMPHATIC: no lymphadenopathy noted Resp: COMMON NORMALS: normal respiratory effort, No retractions, No use of ac cessory muscles and clear to auscultation bilaterally AUSCULTATION: clear to auscultation bilaterally Cardio: COMMON NORMALS: regular rate, regular rhythm, S1 normal heart sound present and S2 normal heart sound present RATE: regular rate RHYTHM: regular rhythm HEART SOUNDS: S1 normal heart sound present and S2 normal heart sound present GI: COMMON NORMALS: Normal to inspection, nondistended, normoactive bowel sounds present, Soft to palpation and non-tender Extremity: NARRATIVE EXTREMITY EXAM: -2+ pitting edema -left leg erythema and swelling, localized to above ankle -Patient appears pale -Bilateral extremity DP PT pulses palpable but diminished -No mottling -But does have bilateral lower extremities, particularly his digits, have bluish discoloration -Capillary refill greater than 2 seconds Neuro: COMMON NORMALS: CN's II-XII intact bilaterally, moves all extremities and no focal motor deficits Psych: COMMON NORMALS: mental status grossly normal Data 02/03/23 15:49 02/03/23 15:49 A&P Assessment and plan (1) Anemia: (2) Hypotension: (3) Supratherapeutic INR: (4) Lung mass: (5) Acute on chronic respiratory failure with hypoxia and hypercapnia: (6) Pneumonia: (7) NSTEMI (non-ST elevated myocardial infarction): (8) Atrial fibrillation: Qualifiers: Atrial fibrillation type: permanent Qualified Code(s): I48.21 - Permanent atrial fibrillation (9) Coronary artery disease: Qualifiers: Coronary Disease-Associated Artery/Lesion type: [place] artery [place] vs. transplanted heart: [place] heart Associated angina: without angina Qualified Code(s): I25.10 - Atherosclerotic heart disease of [place] coronary artery without angina pectoris (10) Doilx-9-ewparoyvmff deficiency: (11) CHF (congestive heart failure): Qualifiers: Heart failure type: systolic Heart failure chronicity: chronic Qualified Code(s): I50.22 - Chronic systolic (congestive) heart failure (12) Obstructive sleep apnea: (13) BPH loc w urin obs/LUTS: (14) Acute encephalopathy: (15) Sepsis: (16) Cellulitis: Plan Acute encephalopathy -Possibly some of his mentation, and poor history taking is from being very hard of hearing, he has hearing aids in place, but is not exactly able to tell me if it is working or not -Encephalopathy could be from hypoxia, pneumonia, anemia -We will order CT of the head Supratherapeutic INR -On Coumadin therapy -Has received vitamin K -INR remains 10 -Given drop of hemoglobin to 10, will give 2 units FFP -Recheck INR thereafter -Monitor for bloody black stools, not in the emergency room, blood pressures have become more soft we will watch in the ICU Hypotension -Shock, likely multifactorial, from anemia, supratherapeutic INR, pneumonia -Lactic acid pending we will monitor in the ICU closely -Possibly sepsis from pneumonia Sepsis? -Underlying pneumonia, cellulitis left leg -Has acute encephalopathy, elevated troponins, hypoxia from pneumonia -We will obtain lactic acid -Blood cultures Acute anemia -Likely secondary from supratherapeutic INR -Concerns for slow GI bleed -No bloody or black stools reported, none in the emergency room -Hemoccult stool was negative the emergency room -Will monitor in the ICU, monitor for bloody black stools -Is receiving 2 units PRBC -Protonix, Carafate -Monitor hemoglobin closely Pneumonia -Seen on CT of the chest, seems like a postobstructive pneumonia, with evidence of lung mass history of known lung cancer -Placed on vancomycin, Zosyn -Sputum cultures, blood cultures -Hypoxia Acute hypoxic respiratory failure -Likely multifactorial from pneumonia, lung mass, COPD History of lung cancer -Patient as per documentation has not pursued any further work-up, or surveillance -CT of the chest today 1. Masslike consolidation in the infrahilar right lower lobe with filling defects in the bronchi.? This could represent pneumonia but a neoplastic process is not excluded.? Follow-up with bronchoscopy or tissue sampling is recommended. 2. New nodules in the right upper and middle lobes and stable 7 mm lingular nodule.? Metastatic disease is not excluded. 3. Patchy pneumonia throughout the right lung. 4. Ground-glass opacities in the left lung could represent pulmonary edema or pneumonia. 5. Prominent mediastinal, right paratracheal, and retrocrural lymph nodes.? Malignant neoplasm or metastasis is not excluded. 2. Larger 4.4 cm paratracheal lymph node.? A malignant neoplastic process is not excluded. -We will monitor Left leg swelling, area of cellulitis left leg -His ultrasound a few weeks ago showed a hematoma -Repeat ultrasound -Hold blood thinner -He is on antibiotics as above NSTEMI, from hypotension, shock, sepsis, and anemia, respiratory failure -Serial EKGs, serial troponins, telemetry monitoring -Likely type II NSTEMI Attestations Medical Necessity Statement*: patient requires hospitalization for anemia, suprathrapeutic inr, respiratory failure, pneumoniae, nstemi, Diagnoses Anemia D64.9 Hypotension I95.9 Supratherapeutic INR R79.1 Lung mass R91.8 Acute on chronic respiratory failure with hypoxia and hypercapnia J96.21; J96.22 Pneumonia J18.9 NSTEMI (non-ST elevated myocardial infarction) I21.4 Atrial fibrillation I48.21 Atrial fibrillation type: permanent Coronary artery disease I25.10 Coronary Disease-Associated Artery/Lesion type: [place] artery [place] vs. transplanted heart: [place] heart Associated angina: without angina Lpory-0-wgphgyobtjh deficiency E88.01 CHF (congestive heart failure) I50.22 Heart failure type: systolic Heart failure chronicity: chronic Obstructive sleep apnea G47.33 BPH loc w urin obs/LUTS N40.1 Acute encephalopathy G93.40 Sepsis A41.9 Cellulitis L03.90
--- NOTE | 2023-02-03 22:07 | ECG_ITS ---
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 Measurements Intervals [place] Rate: 69 P: 0 MA: 0 QRS: 231 QRSD: 178 T: 54 QT: 467 QTc: 503 Interpretive Statements ELECTRONIC VENTRICULAR PACEMAKER Compared to ECG 02/03/2023 18:52:36 No significant changes Electronically Signed On 02-03-2023 23:04:36 CDT by Soy Gamez M.D. [id number]
--- NOTE | 2023-02-03 22:14 | PC.PHAR ---
Pharmacokinetic dosing service Date: 02/03/23 Time: 2213 Objective: Patient: David Ascencio Floor: ICU-3 Age: 87 yo Serum creatinine: 0.5 mg/dL Height: 66.0 Inches Weight (kg): 74.843 Diagnosis: Relevant medical/social history: Cultures and sensitivities: Other labs: Assessment: IBW (kg): 63.80 Dosing wt(kg): 74.843 Estimated Creatinine clearance (ml/min): 92.2 CRCL method: Cockcroft and Gault using ibw(default). Drug selected: Vancomycin Loading dose (mg): 0 Vd (liters): 67.4 (factor used: 0.9 L/kg) Kev (hr-1): 0.081 Half life (hrs): 8.56 Recommended dose: 1250 mg Interval: 12 hrs Infusion time (hrs): 1.5 Predicted peak (mcg/mL): 28.1 Predicted trough (mcg/mL): 12.00 Total body weight is being used for vancomycin dosing. Renal function is stable [ ] /unstable [ ] Recommendations: Give Vancomycin 1250 mg q 12 hrs with an expected Cpeak of 28.1 mcg/ml and an expected Ctrough of 12.00 mcg/ml Renal dosing of other antibiotics (review renal dosing of other medications and list guidelines here): Thank you for the consult, will continue to follow. Signature: Matilda Alaniz [facility]
[2023-02-03 22:24] LABS: Add Urine Microscopic? YES; Bilirubin Urine 1+ (Negative); Blood Urine 2+ (Negative); Glucose Urine UA Norm (Normal); Ketones Urine Negative (Negative); Leukocyte Esterase Urine Negative (Negative); Nitrate Urine Negative (Negative); Protein Urine Neg (Negative); Urine Appearance Clear (CLEAR); Urine Color Orange (Yellow); Urobilinogen Urine 4 mg/dL (Negative); pH Urine 5 (5-7)
[2023-02-03 22:30] LABS: Squamous Epithelial Cell Urine 0-4 /hpf (0-5)
[2023-02-03 22:33] LABS: Estmated Average Glucose 114; Hemoglobin A1C 5.6 % (4.0-6.0)
[2023-02-03] MEDS: sodium chloride 0.9% 100 mL Bag 50 ML IV (22:41)
[2023-02-03] MEDS: FUROsemide 10 mg/mL SDV 2mL 20 MG IVP (22:41)
[2023-02-03] MEDS: sucralfate 1 gm Tablet PO (22:41)
[2023-02-03] MEDS: pantoprazole 40 mg SDV IVP (22:41)
[2023-02-03 22:46] LABS: Lactic Sepsis W/Reflex 0.7 mmol/L (0.5-2.2)
[2023-02-03 22:48] LABS: Troponin 5 6HR 19.64 ng/L (0-15)
[2023-02-03 22:49] LABS: Troponin 5 6HR Delta -1.36 ng/L (0-12)
[2023-02-03 22:50] LABS: Amphetamines Screen Urine Negative (Negative); Barbiturates Screen Urine Negative (Negative); Benzodiazepines Screen Urine Negative (Negative); Cocaine Screen Urine Negative (Negative); Opiate Screen Urine Negative (Negative); PCP Screen Urine Negative (Negative); THC Screen Urine Negative (Negative)
[2023-02-03] MEDS: vancomycin 1,250 MG/250 ML PIGGYBACK 250 MG IV (23:51)
[2023-02-04] VITALS (67 sets, daily range): BP systolic 74–141; BP diastolic 29–77; PULSE 70–96; RESP 16–34; TEMP 36.6–37.3; O2SAT 82–100
[2023-02-04 00:25] LABS: NT Pro B Type Natriuretic Pept 2409 pg/mL (0-450); Procalcitonin 0.03 ng/mL (0-0.5); Thyroid Stimulating Hormone 4.71 uIU/mL (0.27-4.20); Vitamin B12 1118 pg/mL (232-1245)
[2023-02-04] MEDS: morphine 4 mg/mL SDV 1 mL 1 MG IVP ×2 (00:38→08:57)
[2023-02-04 00:39] LABS: Chol HDL Ratio 2.84 mg/dL (1.0-5.00); Cholesterol 128 mg/dL (0-200); Ferritin 414 ng/mL (30-400); HDL Cholesterol 45 mg/dL (60-100); Iron 43 ug/dL (59-158); LDL Cholesterol Calculated 66 mg/dL (50-129); LDL HDL Ratio 1.47 RATIO (0.00-3.22); Percent Saturation 18.1 % (20-50); Total Iron Binding Capacity 237 mcg/dl; Triglycerides 83 mg/dL (0-150); Unsaturated Iron Binding 194 ug/dL (112-347)
[2023-02-04 00:44] LABS: Alcohol Level < 10 mg/dL (0-10)
[2023-02-04 01:07] LABS: ABG PCO2 57.7 mmHg (35-45); Arterial Blood Gas Hematocrit 26.7 % (42-52); Base Excess ABG 9.1 mmol/L (-2.0-2.0); Blood Gas Allen Test Pos; Blood Gas Operator Identificat JB; Blood Gas Sample Site Radial, right; Blood Gas Sample Type Arterial; HCO3 ABG 35.3 mmol/L (22-26); Oxygen Device NC; PO2 ABG 66.8 mmHg (80.0-100.0)
[2023-02-04 01:30] LABS: Folate Level > 20.0 ng/mL (4.5-32.2)
[2023-02-04] MEDS: piperacillin-tazobactam 3.375 GM in sodium chloride 0.9% (plus) 50 ML IV ×3 (01:39→17:25)
[2023-02-04] MEDS: FUROsemide 10 mg/mL SDV 2mL 20 MG IVP (01:39)
[2023-02-04] MEDS: sodium chloride 0.9% 100 mL Bag 50 ML IV (01:41)
[2023-02-04 02:40] LABS: INR 4.65 (0.8-1.2)
[2023-02-04 05:43] LABS: Basophils % 0.5 %; Eosinophils # 0.2 10^3/uL (0.0-0.8); Eosinophils % 3.6 %; Hematocrit 25.8 % (42.0-52.0); Hemoglobin 7.9 g/dL (11.7-16.6); Lymphocytes % 16.9 %; Mean Corpuscular HGB Conc 30.6 g/dL (30.0-36.0); Mean Corpuscular Hemoglobin 30.4 pg (28.0-34.0); Mean Corpuscular Volume 99.2 fl (80-94); Mean Platelet Volume 10.5 fL (7.4-10.4); Monocytes # 0.7 10^3/uL (0.2-0.9); Monocytes % 11.1 %; Neutrophils # 4.13 10^3/uL (1.8-7.7); Neutrophils % 67.1 %; Nucleated Red Blood Cells % 0 %; Platelet Count 278 10^3/cmm (130-400); Red Cell Distribution Width 16.1 % (12.1-15.1); White Blood Count 6.2 10^3/uL (4.0-10.0)
[2023-02-04 05:44] LABS: INR 3.57 (0.8-1.2)
[2023-02-04 05:58] LABS: Alanine Aminotransferase 10 U/L (0-41); Albumin Level 2.9 g/dL (3.5-5.2); Alkaline Phosphatase 93 U/L (40-130); Anion Gap 7.8 (5-19); Aspartate Amino Transferase 25 U/L (0-40); Blood Urea Nitrogen 17 mg/dL (8-23); Carbon Dioxide 36 mmol/L (22-29); Chloride 98 mmol/L (98-107); Globulin 3.3 g/dL (1.3-4.6); Glucose 93 mg/dL (65-115); Magnesium 1.8 mg/dL (1.7-2.3); Osmolality Calculated 287 mOsm/kg (285-295); Phosphorus 2.9 mg/dL (2.5-4.5); Potassium 3.8 mmol/L (3.5-5.1); Sodium 138 mmol/L (136-145); Total Bilirubin 1.1 mg/dL (0.15-1.2); Total Protein 6.2 g/dL (6.6-8.7)
--- NOTE | 2023-02-04 06:00 | USCV_ITS ---
David Ascencio Age: 87 Gender: M : 1935 Exam Date: 02/04/2023 11:18 Ordering Phys: Theodore Felipe MD Technologist: MAHOGANY [place] [facility] [place]: sob BP: / HR: 74 Rhythm: Other Technical Quality: Adequate MEASUREMENTS (Male / Female) Normal Values 2D ECHO LV Diastolic Diameter PLAX 5.3 cm 4.2 - 5.9 / 3.9 - 5.3 cm LV Systolic Diameter PLAX 2.7 cm IVS Diastolic Thickness 0.7 cm 0.6 - 1.0 / 0.6 - 0.9 cm IVS Systolic Thickness 1.2 cm LVPW Diastolic Thickness 0.7 cm 0.6 - 1.0 / 0.6 - 0.9 cm LVPW Systolic Thickness 1.3 cm LV Ejection Fraction 2D Teich 80.1 % LV Ejection Fraction MOD 2C 55.9 % LV Ejection Fraction 2C AL 55.4 % LA Diameter 3.9 cm IVC Diameter 1.7 cm M-MODE Aortic Annulus Diameter 2.9 cm LA Ao Ratio MM 1.4 MV E Point Septal Separation 0.2 cm DOPPLER AV Peak Velocity 164.0 cm/s LVOT Peak Velocity 79.0 cm/s MV Area PHT 4.9 cm squared MV E' Velocity 56.5 cm/s Mitral E to MV E' Ratio 9.1 Mitral E to LV E' Lateral Ratio 8.7 Mitral E to LV E' Septal Ratio 9.7 TR Peak Velocity 360.7 cm/s TR Peak Gradient 52.0 mmHg TV Peak E Velocity 63.0 cm/s Right Atrial Pressure 9.0 mmHg Pulmonary Artery Systolic Pressu 61.0 mmHg FINDINGS Left Ventricle Normal left ventricular size, systolic function and wall thickness, with no regional wall motion abnormalities. Left ventricular ejection fraction is estimated at 60 %. The rhythm is paced. Right Ventricle Normal right ventricular size and systolic function. Catheter/pacemaker wire visualized in the right ventricle. Moderate pulmonary hypertension, RVSP 61 mmHg. Right Atrium Moderately increased right atrial size. Left Atrium Moderately increased left atrial size. Mitral Valve Structurally normal mitral valve. Trace mitral valve regurgitation. Aortic Valve Structurally normal aortic valve without significant sclerosis or stenosis. There is no aortic regurgitation. Tricuspid Valve Structurally normal tricuspid valve. Wdaovawo-da-vzalsb tricuspid valve regurgitation. Pulmonic Valve Pulmonic valve not well visualized. Pericardium Normal pericardium without effusion. Aorta Normal ascending aorta dimension. IVC IVC does not collapse with respiration. RA pressure 10-15mmHg. CONCLUSIONS Normal left ventricular size, systolic function and wall thickness, with no regional wall motion abnormalities. Left ventricular ejection fraction is estimated at 60 %. The rhythm is paced. Normal right ventricular size and systolic function. Catheter/pacemaker wire visualized in the right ventricle. Moderate pulmonary hypertension, RVSP 61 mmHg. Moderately increased right atrial size. Moderately increased left atrial size. Structurally normal mitral valve. Trace mitral valve regurgitation. Structurally normal aortic valve without significant sclerosis or stenosis. There is no aortic regurgitation. Structurally normal tricuspid valve. Ccawjvue-il-oqfzmr tricuspid valve regurgitation. IVC does not collapse with respiration. RA pressure 10-15mmHg. From 03/18/14, PA pressure is higher. Otherwise, no change Dr. Buster Timmons MD (Electronically Signed) Final Date: 04 Feb 2023 14:53 S
[2023-02-04] MEDS: acetaminophen 325 mg Tablet 650 MG PO (07:25)
[2023-02-04] MEDS: levothyroxine 75 mcg Tablet PO (07:25)
--- NOTE | 2023-02-04 07:49 | P.PN_ITS ---
Subjective Subjective: Pt seen this AM in ICU. Pt states he continues to have LLE pain and discomfort. Appears alert and oriented. Denies CP, palpitaitons, SOB, N/V/D/C Deneis any recent changes to his coumadin regiment. compliancy not an issue per patient. unsure as to how he became supratherepeutic. Medications: Reviewed: Yes Vitals/I&O/Wt Last Vital Signs Temp 98.0 F 02/04/23 04:30 Pulse 70 02/04/23 07:40 Resp 22 H 02/04/23 07:40 BP 88/39 02/04/23 05:45 Pulse Ox 92 02/04/23 07:40 O2 Del Method Nasal Cannula 02/04/23 07:40 O2 Flow Rate 6 02/04/23 07:40 02/03/23 02/04/23 02/04/23 22:59 06:59 14:59 Intake Total 350 / 350 720 / 1070 Output Total 200 / 200 1200 / 1400 Balance 150 / 150 -480 / -330 Weight last 48 hrs Weight 163 lb Weight 165 lb Physical Exam Const: COMMON NORMALS: no acute distress EXAM LIMITATIONS: no altered mental status and no language barrier ORIENTATION/CONSCIOUSNESS: Yes awake, Yes oriented to person, Yes oriented to place and Yes confused; not oriented to time HENMT: COMMON NORMALS: normocephalic HEAD & SCALP: normocephalic Eye: COMMON NORMALS: Equal, round and reactive pupils present and EOMs intact bilaterally PUPIL: Yes Equal, round and reactive pupils present Neck/C-Spine: COMMON NORMALS: full ROM and no lymphadenopathy Lymph: LYMPHATIC: no lymphadenopathy noted Resp: COMMON NORMALS: normal respiratory effort, No retractions, No use of accessory muscles and clear to auscultation bilaterally AUSCULTATION: clear to auscultation bilaterally Cardio: COMMON NORMALS: regular rate, regular rhythm, S1 normal heart sound present and S2 normal heart sound present RATE: regular rate RHYTHM: regular rhythm HEART SOUNDS: S1 normal heart sound present and S2 normal heart sound present GI: COMMON NORMALS: Normal to inspection, nondistended, normoactive bowel sounds present, Soft to palpation and non-tender PALPATION: Yes Soft to palpation Extremity: NARRATIVE EXTREMITY EXAM: -2+ pitting edema on LLE, 1+ pitting edema on RLE up to mid calf -left leg erythema and swelling, localized to above ankle, erythema appears to have improved from ED markings -Bilateral extremity DP PT pulses palpable but diminished. some bluish discoloration to digits on feet -No mottling -Capillary refill greater than 2 seconds Neuro: COMMON NORMALS: CN's II-XII intact bilaterally, moves all extremities and no focal motor deficits SENSORIUM/ORIENTATION: Yes oriented to person, Yes oriented to place and No oriented to time Psych: COMMON NORMALS: mental status grossly normal Urinary Catheter Management: Spencer: Cath Placed During This Visit: no Data 02/04/23 09:34 02/04/23 05:21 Micro: Microbiology 02/03/23 22:34 Blood Culture - Preliminary Blood SPECIMEN COLLECTED 02/03/23 22:25 Blood Culture - Preliminary Blood SPECIMEN COLLECTED A&P Assessment and plan (1) Anemia: (2) Hypotension: (3) Supratherapeutic INR: (4) Lung mass: (5) Acute on chronic respiratory failure with hypoxia and hypercapnia: (6) Pneumonia: (7) NSTEMI (non-ST elevated myocardial infarction): (8) Atrial fibrillation: Qualifiers: Atrial fibrillation type: permanent Qualified Code(s): I48.21 - Permanent atrial fibrillation (9) Coronary artery disease: Qualifiers: Associated angina: without angina Coronary Disease-Associated Artery/Lesion type: [place] artery [place] vs. 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: (11) CHF (congestive heart failure): Qualifiers: Heart failure chronicity: chronic Heart failure type: systolic Qualified Code(s): I50.22 - Chronic systolic (congestive) heart failure (12) Obstructive sleep apnea: (13) BPH loc w urin obs/LUTS: (14) Acute encephalopathy: (15) Sepsis: (16) Cellulitis: Plan Acute encephalopathy -resolved -CT head cancelled Supratherapeutic INR -coumadin on HOLD -INR improved from 10.6 to 3.57 this AM -received vitamin K, 1u FFP -monitoring INR Hypotension -Shock, likely multifactorial, from anemia, supratherapeutic INR, pneumonia -Lactic acid pending we will monitor in the ICU closely -continues to be hypotensive but baseline per patient; however records show BP in 110's/80's -MAP in high 60's. -Possibly sepsis from pneumonia, continue Abx -will hold off on transfer to med-surg until BP improves Sepsis? -Underlying pneumonia, cellulitis left leg -encephalopathy resolved -Bcx pending -We will obtain lactic acid -Blood cultures pending Acute anemia -Likely secondary from supratherapeutic INR -received 2u pRBC and 1u FFP -hgb increased from 7.1 to 7.9 -ED concern for slow GI bleed. no bloody stool, melena since ICU placement -Hemoccult stool was negative the emergency room -Will monitor in the ICU, monitor for bloody black stools -Protonix, Carafate -Monitor hemoglobin closely Pneumonia -Seen on CT of the chest, seems like a postobstructive pneumonia, with evidence of lung mass history of known lung cancer -vancomycin, Zosyn -Sputum cultures, blood cultures pending -Hypoxia Acute hypoxic respiratory failure -Likely multifactorial from pneumonia, lung mass, COPD -improving. History of lung cancer -Patient as per documentation has not pursued any further work-up, or surveil corwin -CT of the chest yday showed: 1. Masslike consolidation in the infrahilar right lower lobe with filling defects in the bronchi.? This could represent pneumonia but a neoplastic process is not excluded.? Follow-up with bronchoscopy or tissue sampling is recommended. 2. New nodules in the right upper and middle lobes and stable 7 mm lingular nodule.? Metastatic disease is not excluded. 3. Patchy pneumonia throughout the right lung. 4. Ground-glass opacities in the left lung could represent pulmonary edema or pneumonia. 5. Prominent mediastinal, right paratracheal, and retrocrural lymph nodes.? Malignant neoplasm or metastasis is not excluded. 2. Larger 4.4 cm paratracheal lymph node.? A malignant neoplastic process is not excluded. -We will monitor Left leg swelling, area of cellulitis left leg -His ultrasound a few weeks ago showed a hematoma -Repeat ultrasound pending -Hold blood thinner -He is on antibiotics as above NSTEMI, from hypotension, shock, sepsis, and anemia, respiratory failure -Serial EKGs, serial troponins, telemetry monitoring -Likely type II NSTEMI Attestations Medical Necessity Statement*: sepsis and suprathereuputic INR Coding Level of Care Code 16246 Diagnoses Anemia D64.9 Hypotension I95.9 Supratherapeutic INR R79.1 Lung mass R91.8 Acute on chronic respiratory failure with hypoxia and hypercapnia J96.21; J96.22 Pneumonia J18.9 NSTEMI (non-ST elevated myocardial infarction) I21.4 Atrial fibrillation I48.21 Atrial fibrillation type: permanent Coronary artery disease I25.10 Associated angina: without angina Coronary Disease-Associated Artery/Lesion type: [place] artery [place] vs. transplanted heart: [place] heart Kzeol-3-hpsnaboswaj deficiency E88.01 CHF (congestive heart failure) I50.22 Heart failure chronicity: chronic Heart failure type: systolic Obstructive sleep apnea G47.33 BPH loc w urin obs/LUTS N40.1 Acute encephalopathy G93.40 Sepsis A41.9 Cellulitis L03.90
[2023-02-04] MEDS: pantoprazole 40 mg SDV IVP ×2 (08:56→21:12)
[2023-02-04] MEDS: thiamine 100 mg Tablet 50 MG PO (09:00)
[2023-02-04] MEDS: sucralfate 1 gm Tablet PO ×2 (09:02→21:12)
--- NOTE | 2023-02-04 09:40 | PC.NURSE ---
Young disheveled woman, with eyes darting back and forth, in room with pt. She is pacing and muttering. This nurse overheard her telling pt. she needed money for food and cigarettes. She was provided a tray that was extra in the unit this am. Pt had her hand him his pants, patient was observed giving her a twenty dollar bill. Woman then left room.
[2023-02-04 10:16] LABS: Hematocrit 27.5 % (42.0-52.0); Hemoglobin 8.5 g/dL (11.7-16.6)
[2023-02-04] MEDS: ipratropium-albuterol 3 mL Neb INHALATION (12:07)
[2023-02-04] MEDS: vancomycin 1,250 MG/250 ML PIGGYBACK 250 MG IV ×2 (12:10→22:32)
[2023-02-04 15:18] LABS: Hematocrit 25.4 % (42.0-52.0); Hemoglobin 7.7 g/dL (11.7-16.6)
[2023-02-04] MEDS: HYDROcodone-acetaminophen 5-325 mg Tablet 1 TAB PO (17:25)
--- NOTE | 2023-02-04 20:33 | USR_ITS ---
PROCEDURE INFORMATION: Exam: US Duplex Lower Extremity Veins, Bilateral Exam date and time: 02/04/2023 11:43 AM Age: 87 years old Clinical indication: Edema, localized; Lower extremity, left; Additional info: Dvt TECHNIQUE: Imaging protocol: Real-time duplex ultrasound of the bilateral extremities with 2-D escamilla scale, color Doppler flow and spectral waveform analysis including responses to compression and other maneuvers (when performed) with image documentation. Complete exam focused on the lower extremity veins. COMPARISON: US ROR venous duplex [facility] 01/19/2023 11:45 AM FINDINGS: Right deep veins: Unremarkable. The common femoral, femoral, proximal profunda femoral and popliteal veins are patent without thrombus. Normal Doppler waveforms. Normal compressibility and/or augmentation response. Right superficial veins: Saphenofemoral junction is patent without thrombus. Left deep veins: Unremarkable. The common femoral, femoral, proximal profunda femoral and popliteal veins are patent without thrombus. Normal Doppler waveforms. Normal compressibility and/or augmentation response. Left superficial veins: Saphenofemoral junction is patent without thrombus. Soft tissues: Unremarkable. US/CV venous duplex [facility] [id number] IMPRESSION: No evidence of deep vein thrombosis.
[2023-02-05] VITALS (30 sets, daily range): BP systolic 99–125; BP diastolic 49–79; PULSE 70–77; RESP 18–21; TEMP 36.4–37.2; O2SAT 85–100
[2023-02-05] MEDS: piperacillin-tazobactam 3.375 GM in sodium chloride 0.9% (plus) 50 ML IV ×2 (00:51→08:44)
[2023-02-05 04:44] LABS: Basophils % 0.3 %; Eosinophils # 0.3 10^3/uL (0.0-0.8); Eosinophils % 4.9 %; Hematocrit 25.6 % (42.0-52.0); Hemoglobin 7.8 g/dL (11.7-16.6); Lymphocytes # 1.1 10^3/uL (0.8-4.8); Lymphocytes % 17.5 %; Mean Corpuscular HGB Conc 30.5 g/dL (30.0-36.0); Mean Corpuscular Hemoglobin 30.7 pg (28.0-34.0); Mean Corpuscular Volume 100.8 fl (80-94); Mean Platelet Volume 10.6 fL (7.4-10.4); Monocytes # 0.8 10^3/uL (0.2-0.9); Monocytes % 12.5 %; Neutrophils # 4.05 10^3/uL (1.8-7.7); Nucleated Red Blood Cells % 0 %; Platelet Count 283 10^3/cmm (130-400); Red Blood Count 2.54 10^6/uL (4.1-5.3); Red Cell Distribution Width 16.2 % (12.1-15.1); White Blood Count 6.3 10^3/uL (4.0-10.0)
[2023-02-05 04:52] LABS: INR 2.05 (0.8-1.2)
[2023-02-05 05:03] LABS: Alanine Aminotransferase 10 U/L (0-41); Albumin Level 2.8 g/dL (3.5-5.2); Alkaline Phosphatase 89 U/L (40-130); Aspartate Amino Transferase 24 U/L (0-40); Blood Urea Nitrogen 21 mg/dL (8-23); Carbon Dioxide 34 mmol/L (22-29); Chloride 99 mmol/L (98-107); Globulin 3.2 g/dL (1.3-4.6); Glucose 93 mg/dL (65-115); Osmolality Calculated 289 mOsm/kg (285-295); Sodium 138 mmol/L (136-145); Total Bilirubin 0.8 mg/dL (0.15-1.2)
[2023-02-05] MEDS: levothyroxine 75 mcg Tablet PO (06:13)
[2023-02-05] MEDS: sucralfate 1 gm Tablet PO ×2 (08:43→21:27)
[2023-02-05] MEDS: HYDROcodone-acetaminophen 5-325 mg Tablet 1 TAB PO (08:43)
[2023-02-05] MEDS: pantoprazole 40 mg SDV IVP ×2 (08:44→21:27)
[2023-02-05] MEDS: thiamine 100 mg Tablet 50 MG PO (08:44)
[2023-02-05] MEDS: lactulose oral liq 20 gm/30 mL UDC 30 GM PO ×2 (11:01→18:55)
[2023-02-05] MEDS: vancomycin 1,250 MG/250 ML PIGGYBACK 250 MG IV (11:02)
--- NOTE | 2023-02-05 13:43 | PM.PN ---
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 INR is 2 hemoglobin has remained stable, no signs of hypotension or tachycardia Currently on 6 L, at baseline sometimes he uses 7 L of oxygen at home Vitals/I&O/Wt Last Vital Signs Temp 98.2 F 02/05/23 08:00 Pulse 70 02/05/23 12:00 Resp 20 H 02/05/23 09:12 BP 121/62 02/05/23 12:00 Pulse Ox 85 L 02/05/23 12:00 O2 Del Method Nasal Cannula 02/05/23 09:12 O2 Flow Rate 6 02/05/23 09:12 02/04/23 02/05/23 02/05/23 22:59 06:59 14:59 Intake Total 370 / 1263.75 300 / 1563.75 300 / 300 Output Total 1300 / 1300 700 / 2000 Balance -930 / -36.25 -400 / -436.25 300 / 300 Weight last 48 hrs Weight 73.936 kg Weight 74.843 kg Physical Exam Narrative: Pleasant and cooperative Hard of hearing GCS 15 Nonfocal neuro exam Communication via writing board S1, S2 variable Hemodynamically stable Currently on 6 L Left lower leg hematoma without any worsening, cellulitis improving Urinary Catheter Management: Spencer: Cath Placed During This Visit: yes Reason for Continuing Indwelling Catheter: Accurate Measurement of Urinary Output in Critically Ill Patients Urinary Catheter Date of Insertion: 02/04/23 Urinary Catheter Time of Insertion: 02:30 Data 02/05/23 04:14 02/05/23 04:14 Micro: Microbiology 02/03/23 22:50 Gram Stain - Final Sputum - Expectorated Sputum Sputum Culture - Preliminary 02/03/23 22:34 Blood Culture - Preliminary Blood NEGATIVE TO DATE 02/03/23 22:25 Blood Culture - Preliminary Blood NEGATIVE TO DATE 02/03/23 22:00 MRSA Culture - Final Nose A&P Assessment and plan (1) Cellulitis: (2) Sepsis: (3) Acute encephalopathy: (4) Pneumonia: (5) Acute on chronic respiratory failure with hypoxia and hypercapnia: (6) Anemia: (7) Status post biventricular cardiac pacemaker insertion: (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 transplanted heart: [place] heart Associated angina: without angina Qualified Code(s): I25.10 - Atherosclerotic heart disease of [place] coronary artery without angina pectoris (12) Anticoagulant long-term use: (13) Qppau-2-rqduhcukxex deficiency: (14) Emphysema (subcutaneous) (surgical) resulting from a procedure: (15) Obstructive sleep apnea: (16) Lung cancer: (17) Lung mass: (18) Supratherapeutic INR: Plan Supratherapeutic INR related to Coumadin INR is 2 No active bleed Acute metabolic encephalopathy related to pneumonia Resolved Sepsis: Resolved Lung mass: Patient does not want to pursue any treatment Chronic hypoxia requires 7 L of oxygen at baseline currently on 6 L Patient is stating he does not want to go to any senior care He is full code Continue antibiotics History of sleep apnea: Continue oxygen for now Left leg cellulitis: Improving No signs of hematoma or DVT NSTEMI: Type II NSTEMI sepsis related . 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 transplanted heart: [place] heart Associated angina: without angina Anticoagulant long-term use Z79.01 Eewnu-7-hngmzjfqtfn deficiency E88.01 Emphysema (subcutaneous) (surgical) resulting from a procedure T81.82XA Obstructive sleep apnea G47.33 Lung cancer C34.90 Lung mass R91.8 Supratherapeutic INR R79.1
--- NOTE | 2023-02-05 14:43 | PC.NURSE ---
Report called to [facility] on [place] floor. Patient to be transferred to room 279-1 via wheelchair. Patient belongings placed at bedside, family notified of transfer.
[2023-02-05] MEDS: amoxicillin-clav 875-125 mg Tablet 1 TAB PO (18:54)
[2023-02-05] MEDS: sennosides-docusate Tablet 1 TAB PO (18:55)
[2023-02-06] VITALS (10 sets, daily range): BP systolic 109–119; BP diastolic 45–67; PULSE 57–75; RESP 15–21; TEMP 36.4–37.1; O2SAT 94–99
[2023-02-06 05:15] LABS: Basophils % 0.5 %; Eosinophils # 0.3 10^3/uL (0.0-0.8); Hematocrit 28.2 % (42.0-52.0); Hemoglobin 8.3 g/dL (11.7-16.6); Lymphocytes # 0.4 10^3/uL (0.8-4.8); Lymphocytes % 5.6 %; Mean Corpuscular HGB Conc 29.4 g/dL (30.0-36.0); Mean Corpuscular Hemoglobin 30.1 pg (28.0-34.0); Mean Corpuscular Volume 102.2 fl (80-94); Mean Platelet Volume 10.6 fL (7.4-10.4); Monocytes # 0.4 10^3/uL (0.2-0.9); Monocytes % 6.9 %; Neutrophils # 5.14 10^3/uL (1.8-7.7); Neutrophils % 81.9 %; Nucleated Red Blood Cells % 0 %; Platelet Count 306 10^3/cmm (130-400); Red Blood Count 2.76 10^6/uL (4.1-5.3); Red Cell Distribution Width 16.1 % (12.1-15.1); White Blood Count 6.3 10^3/uL (4.0-10.0)
[2023-02-06 05:33] LABS: Anion Gap 10.2 (5-19); Blood Urea Nitrogen 18 mg/dL (8-23); Calcium 8.1 mg/dL (8.5-10.5); Carbon Dioxide 32 mmol/L (22-29); Chloride 100 mmol/L (98-107); Glucose 101 mg/dL (65-115); Osmolality Calculated 288 mOsm/kg (285-295); Potassium 4.2 mmol/L (3.5-5.1); Sodium 138 mmol/L (136-145)
[2023-02-06] MEDS: levothyroxine 75 mcg Tablet PO (06:10)
[2023-02-06] MEDS: amoxicillin-clav 875-125 mg Tablet 1 TAB PO ×2 (08:02→17:05)
[2023-02-06] MEDS: thiamine 100 mg Tablet 50 MG PO (08:02)
--- NOTE | 2023-02-06 08:03 | PC.NURSE ---
Patient refused lactulose and senna. Patient stated he is having loose bowel movements.
[2023-02-06] MEDS: ipratropium-albuterol 3 mL Neb INHALATION (08:31)
[2023-02-06] MEDS: sucralfate 1 gm Tablet PO ×2 (10:48→21:42)
--- NOTE | 2023-02-06 10:56 | PM.PN ---
Subjective Subjective: He is not happy with breakfast, I have informed the front maker lockstitch to provide patient with sausage, I will change his diet to carb regular Spoke with his daughter who is agreeable with home health if that is possible ALTE Patient is currently on 5 L of oxygen Experiencing mild wheezing Previous notes and clearly mentioned that patient has refused intervention, I spoke with Dr. Peraza as well who is willing to see him in the clinic, Vitals/I&O/Wt Last Vital Signs Temp 98.7 F 02/06/23 08:00 Pulse 70 02/06/23 08:31 Resp 18 02/06/23 08:31 BP 112/62 02/06/23 08:00 Pulse Ox 94 02/06/23 08:31 O2 Del Method Nasal Cannula 02/06/23 08:31 O2 Flow Rate 6 02/06/23 08:31 02/05/23 02/06/23 02/06/23 22:59 06:59 14:59 Intake Total 120 / 420 Balance 120 / 420 Physical Exam Narrative: Active wheezing Current very hard of hearing Communicated via writing S1, S2 abdomen is soft Nonfocal neuro exam GCS 15 No active chest pain or shortness of breath Euvolemic Urinary Catheter Management: Spencer: Cath Placed During This Visit: yes Reason for Continuing Indwelling Catheter: Acute Urinary Retention or Obstruction Urinary Catheter Date of Insertion: 02/04/23 Urinary Catheter Time of Insertion: 02:30 Data 02/06/23 05:05 02/06/23 05:05 Micro: Microbiology 02/03/23 22:50 Gram Stain - Final Sputum - Expectorated Sputum Sputum Culture - Preliminary A&P Assessment and plan (1) Cellulitis: (2) Sepsis: (3) Acute encephalopathy: (4) Zgwlr-5-uavltvvkpti deficiency: (5) Atrial fibrillation: Qualifiers: Atrial fibrillation type: permanent Qualified Code(s): I48.21 - Permanent atrial fibrillation (6) 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 Peraza this morning who is willing to see the patient again in the clinic I will speak with the patient 1 time and his daughter for now there was plan to discharge him with home health services Left leg cellulitis improving Sleep apnea continue oxygen Sepsis: Resolved Type II NSTEMI Diastolic CHF exacerbation continue low-dose Lasix A-fib without RVR I will switch him to Eliquis, discontinue Coumadin at the time of discharge Continue levothyroxine Family updated Full code Attestations Medical Necessity Statement*: Discharge tomorrow Diagnoses Cellulitis L03.90 Sepsis A41.9 Acute encephalopathy G93.40 Qkhpo-5-hqqutlrvadn deficiency E88.01 Atrial fibrillation I48.21 Atrial fibrillation type: permanent 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
[2023-02-06] MEDS: pantoprazole 40 mg SDV IVP ×2 (11:02→21:42)
--- NOTE | 2023-02-06 17:06 | PC.NURSE ---
Patient refused morning and evening stool softener. Patient stated he is already having loose stools.
[2023-02-07] VITALS (9 sets, daily range): BP systolic 94–124; BP diastolic 49–67; PULSE 69–81; RESP 16–18; TEMP 36.5–37.1; O2SAT 93–99
[2023-02-07] MEDS: levothyroxine 75 mcg Tablet PO (05:39)
[2023-02-07] MEDS: thiamine 100 mg Tablet 50 MG PO (11:05)
[2023-02-07] MEDS: sucralfate 1 gm Tablet PO ×2 (11:05→21:31)
[2023-02-07] MEDS: lactulose oral liq 20 gm/30 mL UDC 30 GM PO ×2 (11:06→17:40)
[2023-02-07] MEDS: amoxicillin-clav 875-125 mg Tablet 1 TAB PO ×2 (11:06→17:40)
[2023-02-07] MEDS: sennosides-docusate Tablet 1 TAB PO ×2 (11:06→17:41)
--- NOTE | 2023-02-07 11:06 | PM.PN ---
Subjective Subjective: Patient experience hemoptysis Hemodynamically stable Had a detailed discussion with the patient His daughter and 2 sons are present as well We all agreed that they would go with biopsy Dr. Peraza was notified Dr. Peraza's plan to do biopsy on I will let patient eat as he was kept n.p.o. for biopsy possibility today Vitals/I&O/Wt Last Vital Signs Temp 98.5 F 02/07/23 08:00 Pulse 81 02/07/23 08:00 Resp 18 02/07/23 08:00 BP 123/65 02/07/23 08:00 Pulse Ox 96 02/07/23 08:00 O2 Del Method Nasal Cannula 02/07/23 08:00 O2 Flow Rate 4 02/07/23 08:00 02/06/23 02/07/23 02/07/23 22:59 06:59 14:59 Intake Total 770 / 1130 Output Total 500 / 500 Balance 770 / 1130 -500 / 630 Physical Exam Narrative: Patient is on 6 L nasal cannula Family at the bedside Wheezing significantly improved No active hemoptysis at the time of my evaluation Euvolemic Abdomen soft No active chest pain Left leg lower cellulitis improving Hematoma resolved Nonfocal neuro exam Urinary Catheter Management: Spencer: Cath Placed During This Visit: yes Reason for Continuing Indwelling Catheter: Acute Urinary Retention or Obstruction Urinary Catheter Date of Insertion: 02/04/23 Urinary Catheter Time of Insertion: 02:30 Data 02/06/23 05:05 02/06/23 05:05 Micro: Microbiology 02/03/23 22:50 Gram Stain - Final Sputum - Expectorated Sputum Sputum Culture - Final A&P Assessment and plan (1) Hemoptysis: (2) NSTEMI (non-ST elevated myocardial infarction): (3) Acute encephalopathy: (4) Sepsis: (5) Cellulitis: (6) Acute on chronic respiratory failure with hypoxia and hypercapnia: (7) Pneumonia: (8) Status post biventricular cardiac pacemaker insertion: (9) 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: (10) Atrial fibrillation: Qualifiers: Atrial fibrillation type: permanent Qualified Code(s): I48.21 - Permanent atrial fibrillation (11) Oszmx-5-fqlbpzhztdd deficiency: (12) Supratherapeutic INR: (13) Bladder cancer: Qualifiers: Bladder location: posterior wall Qualified Code(s): 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 Peraza is planning for biopsy on Cellulitis of leg improving Hematoma: Resolved Supratherapeutic INR: Resolved A-fib without RVR I will put patient on Eliquis after his biopsy for now I am not using any anticoagulating agent because of active hemoptysis and plan for biopsy on Hypothyroid: Continue levothyroxine Detailed family meeting conducted today, I discussed lung mass, possibility of underlying malignancy, chemotherapy, prognosis, NSTEMI: Type II NH Echo did not show any wall motion abnormality or reduction in EF COPD exacerbation: Currently requiring 6 L, wheezing improved, discontinue IV steroids Patient remains full code for now Attestations Medical Necessity Statement*: Continue medical management Diagnoses Hemoptysis R04.2 NSTEMI (non-ST elevated myocardial infarction) I21.4 Acute encephalopathy G93.40 Sepsis A41.9 Cellulitis L03.90 Acute on chronic respiratory failure with hypoxia and hypercapnia J96.21; J96.22 Pneumonia J18.9 Status post biventricular cardiac pacemaker insertion Z95.0 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
[2023-02-07] MEDS: pantoprazole 40 mg SDV IVP ×2 (11:07→21:31)
--- NOTE | 2023-02-07 22:12 | PC.RESP ---
Patient requesting to speak with respiratory therapy at this time. Patient asked to be placed on a CPAP. I explained that we do not have orders for a CPAP. I did not find any documentation or notes stating the patient has recently used a CPAP. When asked, patient stated he has not wore one in over 5 years. I explained to him that the physician did not order one, patient replied, then you better get your ass out there and call him. I told patient not to speak to me like that or this conversation would be over. Patient rolled his eyes. I asked patient if he had a machine at home, he replied No, I dont use one at home. Patient stated he would talk to the pulmonary doctor tomorrow. Patient is currently on 4lpm oxygen, satting 96%. Patient does not appear in any distress. I spoke with RN and made her aware of patient demands.
[2023-02-08] VITALS (11 sets, daily range): BP systolic 95–122; BP diastolic 47–63; PULSE 69–80; RESP 16–25; TEMP 36.4–36.8; O2SAT 93–99
[2023-02-08 03:33] LABS: Basophils % 0.4 %; Eosinophils # 0.1 10^3/uL (0.0-0.8); Eosinophils % 2.1 %; Hematocrit 29.1 % (42.0-52.0); Hemoglobin 8.6 g/dL (11.7-16.6); Lymphocytes # 0.7 10^3/uL (0.8-4.8); Lymphocytes % 13.5 %; Mean Corpuscular HGB Conc 29.6 g/dL (30.0-36.0); Mean Corpuscular Hemoglobin 30.6 pg (28.0-34.0); Mean Corpuscular Volume 103.6 fl (80-94); Mean Platelet Volume 10.1 fL (7.4-10.4); Monocytes # 0.7 10^3/uL (0.2-0.9); Monocytes % 12.6 %; Neutrophils # 3.76 10^3/uL (1.8-7.7); Neutrophils % 70.5 %; Nucleated Red Blood Cells % 0 %; Platelet Count 301 10^3/cmm (130-400); Red Blood Count 2.81 10^6/uL (4.1-5.3); Red Cell Distribution Width 15.6 % (12.1-15.1); White Blood Count 5.3 10^3/uL (4.0-10.0)
[2023-02-08] MEDS: levothyroxine 75 mcg Tablet PO (05:21)
--- NOTE | 2023-02-08 08:40 | P.CONIM_ITS ---
Providers/Reason For Consult Consulting Physician/Specialty*: Sancho Peraza MD, [facility] Reason for Consult*: For bronchoscopic guided biopsies of hilar/mediastinal lymphadenopathy-suspected for malignancy Requesting Physician: En Rahman MD Attending Physician: En Rahman MD Primary Care Provider: Zachary Celis MD History of Present Illness History of Present Illness David Ascencio is a 87 year old male with a past medical history of CHF, chronic respiratory failure, history of bladder cancer, , dyslipidemia, NIURKA, emphysema, mild alpha-1 antitrypsin deficiency, chronic atrial fibrillation on Coumadin, Bi V MACHINE SET UP-D in place for? ischemic cardiomyopathy.??, hypertension, CAD, severe COPD, suspected lung cancer, patient declined to do any further work-up or surveillance, presented to [facility] from his primary care provider's office due to concerns for supratherapeutic INR. He was also admitted for? Septic shock with suspected pneumonia on CT chest. He was started on vancomycin and Zosyn. He has some troponinemia thought to be secondary to demand ischemia type II NSTEMI. His lab work was significant for anemia for which he received 2 units PRBC and [address] chest also showed masslike consolidation infrahilar right lower lobe with filling defects and bronchi, right upper lobe middle lobe nodules. Prominent mediastinal, right paratracheal, retrocrural lymph nodes all suspicious for malignancy. Initially patient refused further work-up and denied any cancer treatments even if it was diagnosed. But later he changed his mind and wanted to proceed with biopsies. Hence pulmonary consult requested to do bronchoscopic evaluation and obtain biopsies. I have known this patient in my clinic. Patient is extremely hard of hearing which makes it difficult to continue conversation. At baseline he uses 4 to 6 L of supplemental oxygen. As outpatient-Patient has been using Anoro 1 puff daily for his COPD.Reported that he quit smoking long time back. Reported being on alpha-1 antitrypsin infusion weekly for Likely 6 to 7 years but upon review of his chart patient has MZ genotype and his levels were never < 57 mg/DL and hence I did not renew his infusion. Patient has PET/CT 04/18/2020 which showed 2 right upper lobe nodules 1 measuring 1.4 x 2.6 cm with SUV 6 and second nodule 1.3 x 0.9 cm with SUV 5.1. Multiple mediastinal nodes are also FDG positive.There are right hilar, right and left paratracheal lymph nodes that are FDG avid.? Right paratracheal lymph node SUV 3.9. Repeat CT August 2020 Redemonstrated pleural-based density in right upper lobe and there was persistent bilateral hilar mediastinal lymphadenopathy , However there is no significant worsening compared to his previous CT. .Repeat CT chest March 2021 a stable 8 mm lingular nodule.? New 13 mm nodule in right upper lobe and opacification of medial part of right lower lung base. Patient is extremely hard of hearing and has to explain everything multiple times. And has to write on paper most of the times to make sure he understood. As outpatient discussed with the patient regarding options of bronchoscopy /ebus guided biopsies And when explained about potential complications of Requiring higher oxygen and possible intubation for 24 to 48 hours-patient refused To have the procedure. Since patient Refused to undergo any procedure, Decision at that time was made to stop doing surveillance CT scans.Also despite encouraging him to do pulmonary function test-he never had PFTs done. Again during this admission-CT chest showed pneumonia as well as redemonstrated mediastinal and hilar lymph nodes with lung nodules. I have discussed with patient and his daughter at bedside about his goals of care and also the risks of being intubated post bronchoscopy given his high requirement of oxygen. I have explained that given his mediastinal/hilar lymphadenopathy-this could be at the least stage III lung cancer which may warrant chemotherapy/radiation for treatment which patient may not tolerate given his advanced heart disease and severe COPD. However patient wanted to have biopsies and wanted to know his diagnosis and depending on his results he will discuss with oncology. He has 2 daughters 1 lives in [place] and another 1 is currently at bedside-both would want to respect his wishes. Patient and his both daughters understand the risks and complications associated with this procedure. He continues to complain about chest congestion, exertional shortness of breath, sinus drainage.? Reported having a chest vest but it is lost in one of the boxes as he recently moved to a new house Medications/Allergies Home Medications Medication Instructions Recorded Confirmed Last Taken Type oxygen-air delivery systems ##1 10/01/19 02/03/23 Unknown History psyllium husk 3.4 gram/5.4 gram 1 tbsp PO DAILY 0102/03/23 02/03/23 History oral powder (Metamucil) albuterol sulfate 2.5 mg/3 mL 2.5 mg (3 mL) inhalation Q4H PRN 03/18/22 02/03/23 Unknown Rx (0.083 %) solution for nebulization shortness of breath or wheezing #180 mL azelastine 137 mcg (0.1 %) nasal 1 spray intranasal BID 30 days #30 05/20/22 02/03/23 02/03/23 Rx spray aerosol mL potassium chloride 10 mEq 10 meq PO DAILY 09/16/22 02/03/23 02/03/23 History capsule,extended release warfarin 10 mg tablet 10 mg PO DAILY 09/16/22 02/03/23 Unknown History clindamycin HCl 150 mg capsule 450 mg PO Q8H 02/03/23 02/03/23 02/03/23 History pyridoxine (vitamin B6) 50 mg 50 mg PO DAILY 02/03/23 02/03/23 Unknown History capsule (Vitamin B-6) thiamine HCl (vitamin B1) 50 mg 50 mg PO DAILY 02/03/23 02/03/23 Unknown History tablet (Vitamin B-1) vitamin B complex 1 tab PO DAILY 02/03/23 02/03/23 Unknown History warfarin 5 mg tablet See Rx Instructions .Route .COMPLEX 02/03/23 02/03/23 Unknown History levothyroxine 88 mcg tablet 88 mcg PO DAILY 02/04/23 02/04/23 02/03/23 History Allergies Allergy/AdvReac Type Severity Reaction Status Date / Time No Known Allergies Allergy Verified 02/03/23 16:11 Current Medications Generic Name Dose Route Start Last Admin Trade Name Freq PRN Reason Stop Dose Admin Acetaminophen 650 mg 02/03/23 21:31 02/04/23 07:25 Acetaminophen 325 Mg Tablet PO 650 mg Q6H PRN Administration Mild/Mod Pain Or Temp >/= 101 Hydrocodone Bitart/Acetaminophen 1 tab 02/04/23 08:50 02/05/23 08:43 Hydrocodone-Acetaminophen 5-325 Mg Tablet PO 1 tab Q4H PRN Administration MODERATE PAIN Albuterol/Ipratropium 3 ml 02/04/23 17:35 02/06/23 08:31 Ipratropium-Albuterol 3 Ml Neb INHALATION 3 ml Q4H.RESPIRATORY PRN Administration SHORTNESS OF BREATH Amoxicillin/Clavulanate Potassium 1 tab 02/05/23 18:00 02/07/23 17:40 Amoxicillin-Clav 875-125 Mg Tablet PO 1 tab BID KEVIN Administration Protocol Budesonide 0.5 mg 02/06/23 11:00 02/07/23 20:20 Budesonide 0.5 Mg/2 Ml Neb INHALATION Not Given BID.RESPIRATORY KEVIN Lactulose 30 gm 02/05/23 10:00 02/07/23 17:40 Lactulose Oral Liq 20 Gm/30 Ml Udc PO 30 gm BID KEVIN Administration Levothyroxine Sodium 75 mcg 02/04/23 06:00 02/08/23 05:21 Levothyroxine 75 Mcg Tablet PO 75 mcg DAILY@0600 KEVIN Administration Morphine Sulfate 1 mg 02/04/23 00:08 02/04/23 08:57 Morphine 4 Mg/Ml Sdv 1 Ml IVP 1 mg Q8H PRN Administration SEVERE PAIN Non-Formulary Med ( 1 each 02/05/23 09:00 02/07/23 17:40 Azelastine 137 Mcg NOSTRIL-B 1 each BID KEVIN Administration Non-Formulary Med ( 1 each 02/04/23 20:25 02/06/23 09:28 Albuterol Inhaler INHALATION 1 each Q6H.RESP PRN Administration SHORTNESS OF BREATH Pantoprazole Sodium 40 mg 02/03/23 21:31 02/07/23 21:31 Pantoprazole 40 Mg Sdv IVP 40 mg Q12H KEVIN Administration Senna/Docusate Sodium 1 tab 02/05/23 18:00 02/07/23 17:41 Sennosides-Docusate Tablet PO 1 tab BID KEVIN Administration Sucralfate 1 gm 02/03/23 22:00 02/07/23 21:31 Sucralfate 1 Gm Tablet PO 1 gm Q12H KEVIN Administration Thiamine Mononitrate 50 mg 02/04/23 09:00 02/07/23 11:05 Thiamine 100 Mg Tablet PO 50 mg DAILY KEVIN Administration PFSH Acute PFSH: Medical History [id number] deficiency Anticoagulant long-term use Atrial fibrillation Bladder cancer BPH loc w urin obs/LUTS Bronchiectasis 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 Cellulitis and abscess of right leg CHF (congestive heart failure) Constipation COPD (chronic obstructive pulmonary disease) Coronary artery disease Diverticulitis Dyslipidemia Dyspnea Emphysema (subcutaneous) (surgical) resulting from a procedure Erectile dysfunction Hypertension Hypothyroidism Lung nodule Malignant neoplasm of posterior wall of urinary bladder Myocardial infarction Nasal obstruction Obstructive sleep apnea Oxygen dependent Pacemaker Sinusitis Weakness Surgical History H/O adenoidectomy H/O bilateral cataract extraction H/O varicose vein ligation and stripping History of tonsillectomy Hx of removal of cyst Status post biventricular cardiac pacemaker insertion Family History Mother CAD (coronary artery disease) Social History Smoking and tobacco status: former smoker Quit status (tobacco): has quit using tobacco Year quit tobacco: 1994 - .5 PPD x 40 Years Alcohol intake: current Alcohol intake frequency: 0-2 Drinks per Day Substance/Drug Use: never Adopted: No Caregiver/support person: No Lives independently: No Household members: spouse Marital status: / Current occupational status: retired Do you think of yourself as: Straight/Heterosexual Current gender identity: Male Vitals/I&O/Wt Last Vital Signs Temp 98.3 F 02/08/23 04:00 Pulse 71 02/08/23 07:44 Resp 18 02/08/23 07:44 BP 95/62 02/08/23 04:00 Pulse Ox 99 02/08/23 07:44 O2 Del Method Nasal Cannula 02/08/23 07:44 O2 Flow Rate 4 02/08/23 07:44 02/07/23 02/08/23 02/08/23 22:59 06:59 14:59 Intake Total 480 / 720 Output Total 550 / 550 500 / 1050 Balance -70 / 170 -500 / -330 Physical Exam Narrative: General: alert, NAD HEENT: conj clear, EOMI, PERRL, mmm, Neck: supple, no meningismus Heme: no cervical LAP Pulmonary: CTAB, no wheezing, rhonchi, crackles Cardiovascular: rrr, nl s1s2, no mrg Abdomen: soft, nt, nd, no r/g, bs+ Extremities: pulses +, no edema, no c/c : no CVA tenderness Skin: intact, no rash MSK: no back or neck pain Neurologic: Extremely hard of hearing otherwise grossly intact Urinary Catheter Management: Spencer: Cath Placed During This Visit: yes Reason for Continuing Indwelling Catheter: Acute Urinary Retention or Obstruction Urinary Catheter Date of Insertion: 02/04/23 Urinary Catheter Time of Insertion: 02:30 Data 02/08/23 03:22 02/06/23 05:05 Other Labs: Radiology Impressions Abdomen/Pelvis CT 02/03/23 17:01 IMPRESSION: 1. Diverticulosis of the colon without diverticulitis. 2. Larger 4.4 cm paratracheal lymph node. A malignant neoplastic process is not excluded. 3. Right lower lobe opacities most likely represents pneumonia or aspiration. 4. Ground-glass opacities in the left lung base could represent pneumonia or pulmonary edema. 5. Stable fluid density lesion in the right retrocrural location. This could represent a congenital cyst or low-density lymph nodes. 6. Stable 7 mm left upper lobe pulmonary nodule. Near 2 year stability favors a benign process. COMMENTS: 1. Consistent with the [employer]'s Incidental Findings Committee white paper (J Am Marlene Radiol 2018): Any incidental renal lesion less than 1 cm or classified as too small to characterize, or any incidental cystic renal lesion characterized as simple-appearing, is likely benign. No follow-up imaging is recommended for these lesions per consensus recommendations based on imaging criteria. 2. For patients with an IVC filter, recommend assessment for a management plan for the patient's IVC filter. If there is no established management plan, recommend referral to an interventional clinician on a nonemergent basis for evaluation. Chest CT 02/03/23 18:29 IMPRESSION: 1. Masslike consolidation in the infrahilar right lower lobe with filling defects in the bronchi. This could represent pneumonia but a neoplastic process is not excluded. Follow-up with bronchoscopy or tissue sampling is recommended. 2. New nodules in the right upper and middle lobes and stable 7 mm lingular nodule. Metastatic disease is not excluded. 3. Patchy pneumonia throughout the right lung. 4. Ground-glass opacities in the left lung could represent pulmonary edema or pneumonia. 5. Prominent mediastinal, right paratracheal, and retrocrural lymph nodes. Malignant neoplasm or metastasis is not excluded. Venous Duplex 02/04/23 20:33 IMPRESSION: No evidence of deep vein thrombosis. Laboratory Results WBC 5.3 10^3/uL (4.0-10.0) 02/08/23 03:22 RBC 2.81 10^6/uL (4.1-5.3) L 02/08/23 03:22 Hgb 8.6 g/dL (11.7-16.6) L 02/08/23 03:22 Hct 29.1 % (42.0-52.0) L 02/08/23 03:22 MCV 103.6 fl (80-94) H 02/08/23 03:22 MCH 30.6 pg (28.0-34.0) 02/08/23 03:22 MCHC 29.6 g/dL (30.0-36.0) L 02/08/23 03:22 RDW 15.6 % (12.1-15.1) H 02/08/23 03:22 Plt Count 301 10^3/cmm (130-400) 02/08/23 03:22 MPV 10.1 fL (7.4-10.4) 02/08/23 03:22 Neut % (Auto) 70.5 % 02/08/23 03:22 Lymph % (Auto) 13.5 % 02/08/23 03:22 Republic % (Auto) 12.6 % 02/08/23 03:22 Eos % (Auto) 2.1 % 02/08/23 03:22 Baso % (Auto) 0.4 % 02/08/23 03:22 Neut # (Auto) 3.76 10^3/uL (1.8-7.7) 02/08/23 03:22 Lymph # (Auto) 0.7 10^3/uL (0.8-4.8) L 02/08/23 03:22 Republic # (Auto) 0.7 10^3/uL (0.2-0.9) 02/08/23 03:22 Eos # (Auto) 0.1 10^3/uL (0.0-0.8) 02/08/23 03:22 Baso # (Auto) 0.0 10^3/uL (0.0-0.1) 02/08/23 03:22 Nucleated RBC % (auto) 0 % 02/08/23 03:22 Nucleated RBCs # 0.0 /100WBC 02/08/23 03:22 PT 19.60 SECONDS (12.1-14.9) H 02/06/23 05:05 INR 1.60 (0.8-1.2) H 02/06/23 05:05 APTT 163.7 SECONDS (23.9-36.7) H* 02/03/23 15:49 Specimen Type Arterial 02/04/23 00:54 Sample Site Radial, right 02/04/23 00:54 ABG pH 7.40 (7.35-7.45) 02/04/23 00:54 ABG pCO2 57.7 mmHg (35-45) H 02/04/23 00:54 ABG pO2 66.8 mmHg (80.0-100.0) L 02/04/23 00:54 ABG HCO3 35.3 mmol/L (22-26) H 02/04/23 00:54 ABG Base Excess 9.1 mmol/L (-2.0-2.0) H 02/04/23 00:54 Jl Test Pos 02/04/23 00:54 Hematocrit 26.7 % (42-52) L 02/04/23 00:54 O2 Delivery Device Nc 02/04/23 00:54 O2 Liters/Min 5.0 % 02/04/23 00:54 Award Machine Operator ID Jewel 02/04/23 00:54 Sodium 138 mmol/L (136-145) 02/06/23 05:05 Potassium 4.2 mmol/L (3.5-5.1) 02/06/23 05:05 Chloride 100 mmol/L (98-107) 02/06/23 05:05 Carbon Dioxide 32 mmol/L (22-29) H 02/06/23 05:05 Anion Gap 10.2 (5-19) 02/06/23 05:05 BUN 18 mg/dL (8-23) 02/06/23 05:05 Creatinine 0.4 mg/dL (0.7-1.2) L 02/06/23 05:05 GFR Calculation Not Reportable 02/06/23 05:05 Glucose 101 mg/dL (65-115) 02/06/23 05:05 Estimat Average Glucose 114 02/03/23 15:49 Hemoglobin A1c 5.6 % (4.0-6.0) 02/03/23 15:49 Calculated Osmolality 288 mOsm/kg (285-295) 02/06/23 05:05 Lactic Acid 0.7 mmol/L (0.5-2.2) 02/03/23 21:32 Calcium 8.1 mg/dL (8.5-10.5) L 02/06/23 05:05 Phosphorus 2.9 mg/dL (2.5-4.5) 02/04/23 05:21 Magnesium 1.8 mg/dL (1.7-2.3) 02/04/23 05:21 Iron 43 ug/dL (59-158) L 02/03/23 16:48 TIBC 237 mcg/dl 02/03/23 16:48 % Saturation 18.1 % (20-50) L 02/03/23 16:48 Unsat Iron Binding 194 ug/dL (112-347) 02/03/23 16:48 Ferritin 414 ng/mL (30-400) H 02/03/23 16:48 Total Bilirubin 0.8 mg/dL (0.15-1.2) 02/05/23 04:14 AST 24 U/L (0-40) 02/05/23 04:14 ALT 10 U/L (0-41) 02/05/23 04:14 Alkaline Phosphatase 89 U/L (40-130) 02/05/23 04:14 Troponin T Baseline 21 ng/L (0-15) H 02/03/23 15:49 Troponin T 120 Minute 19.04 ng/L (0-15) H 02/03/23 18:02 Delta Troponin T -1.96 ABS# (0-10) L 02/03/23 18:02 Troponin T Hi Sens 6Hr 19.64 ng/L (0-15) H 02/03/23 21:32 Troponin T Hi Sens 6Hr Delta -1.36 ng/L (0-12) L 02/03/23 21:32 NT-Pro-B Natriuret Pep 2409 pg/mL (0-450) H 02/03/23 16:48 Total Protein 6.0 g/dL (6.6-8.7) L 02/05/23 04:14 Albumin 2.8 g/dL (3.5-5.2) L 02/05/23 04:14 Globulin 3.2 g/dL (1.3-4.6) 02/05/23 04:14 Triglycerides 83 mg/dL (0-150) 02/03/23 16:48 Cholesterol 128 mg/dL (0-200) 02/03/23 16:48 LDL Cholesterol, Calc 66 mg/dL (50-129) 02/03/23 16:48 HDL Cholesterol 45 mg/dL (60-100) L 02/03/23 16:48 LDL/HDL Ratio 1.47 RATIO (0.00-3.22) 02/03/23 16:48 Cholesterol/HDL Ratio 2.84 mg/dL (1.0-5.00) 02/03/23 16:48 Vitamin B12 1118 pg/mL (232-1245) 02/03/23 16:48 Folate > 20.0 ng/mL (4.5-32.2) 02/03/23 22:34 Procalcitonin 0.03 ng/mL (0-0.5) 02/03/23 16:48 TSH 4.71 uIU/mL (0.27-4.20) H 02/03/23 16:48 Urine Color [place] (Yellow) 02/03/23 Unknown Urine Appearance Clear (CLEAR) 02/03/23 Unknown Urine pH 5 (5-7) 02/03/23 Unknown Ur Specific [place] 1.010 (1.005-1.030) 02/03/23 Unknown Urine Protein Neg (Negative) 02/03/23 Unknown Urine Glucose (UA) Norm (Normal) 02/03/23 Unknown Urine Ketones Negative (Negative) 02/03/23 Unknown Urine Blood 2+ (Negative) H 02/03/23 Unknown Urine Nitrate Negative (Negative) 02/03/23 Unknown Urine Bilirubin 1+ (Negative) H 02/03/23 Unknown Urine Urobilinogen 4 mg/dL (Negative) H 02/03/23 Unknown Ur Leukocyte Esterase Negative (Negative) 02/03/23 Unknown Urine RBC 5-10 /hpf (0-2) H 02/03/23 Unknown Urine WBC None /hpf (0-5) 02/03/23 Unknown Ur Squamous Epith Cells 0-4 /hpf (0-5) H 02/03/23 Unknown Amorphous Sediment Not Reportable 02/03/23 Unknown Urine Bacteria None /hpf (NONE) 02/03/23 Unknown Urine Opiates Screen Negative ng/mL (Negative) 02/03/23 Unknown Ur Barbiturates Screen Negative ng/mL (Negative) 02/03/23 Unknown Ur Phencyclidine Scrn Negative ng/mL (Negative) 02/03/23 Unknown Ur Amphetamines Screen Negative ng/mL (Negative) 02/03/23 Unknown U Benzodiazepines Scrn Negative ng/mL (Negative) 02/03/23 Unknown Urine Cocaine Screen Negative ng/mL (Negative) 02/03/23 Unknown U Marijuana (THC) Screen Negative ng/mL (Negative) 02/03/23 Unknown Ethyl Alcohol < 10 mg/dL (0-10) 02/03/23 16:48 Blood Type O Positive 02/03/23 17:03 Rho(D) Type Positive 02/03/23 17:03 Antibody Screen Negative 02/03/23 17:03 Crossmatch See Detail 02/03/23 17:03 A&P Assessment and plan (1) Suspected lung cancer: Patient has PET/CT 04/18/2020 which showed 2 right upper lobe nodules 1 measuring 1.4 x 2.6 cm with SUV 6 and second nodule 1.3 x 0.9 cm with SUV 5.1. Multiple mediastinal nodes are also FDG positive.There are right hilar, right and left paratracheal lymph nodes that are FDG avid.? Right paratracheal lymph node SUV 3.9. Repeat CT August 2020 Redemonstrated pleural-based density in right upper lobe and there was persistent bilateral hilar mediastinal lymphadenopathy , However there is no significant worsening compared to his previous CT. .Repeat CT chest March 2021 a stable 8 mm lingular nodule.? New 13 mm nodule in right upper lobe and opacification of medial part of right lower lung base. Patient is extremely hard of hearing and has to explain everything multiple times. And has to write on paper most of the times to make sure he understood. As outpatient discussed during multiple visits with the patient regarding options of bronchoscopy /ebus guided biopsies And when explained about potential complications of Requiring higher oxygen and possible intubation for 24 to 48 hours-patient refused To have the procedure. Since patient Refused to undergo any procedure, Decision at that time was made to stop doing surveillance CT scans.Also despite encouraging him to do pulmonary function test-he never had PFTs done. Again during this admission-CT chest showed pneumonia as well as redemonstrated mediastinal and hilar lymph nodes with lung nodules. I have discussed with patient and his daughter at bedside about his goals of care and also the risks of being intubated post bronchoscopy given his high requirement of oxygen. I have explained that given his mediastinal/hilar lymphadenopathy-this could be at the least stage III lung cancer which may warrant chemotherapy/radiation for treatment which patient may not tolerate given his advanced heart disease and severe COPD. However patient wanted to have biopsies and wanted to know his diagnosis and depending on his results he will discuss with oncology. He has 2 daughters 1 lives in [place] and another 1 is currently at bedside-both would want to respect his wishes. Patient and his both daughters understand the risks and complications associated with this procedure. His INR is 1.6 and platelets 316; is not on anticoagulation I am going to schedule for bronchoscopic evaluation and endobronchial ultrasound-guided biopsies of hilar/mediastinal lymph nodes (2) Pneumonia: CT evidence of pneumonia Currently on Augmentin Gram stain showed multiple organisms-culture reported heavy normal clay (3) Acute on chronic respiratory failure with hypoxia and hypercapnia: #Multifactorial-severe COPD/cardiomyopathy/CHF #Biventricular MACHINE SET UP-D in place for ischemic cardiomyopathy #CAD with history of RI and history of heart failure, chronic atrial fibrillation on Coumadin -mMRC 3, 0 reported exacerbations-group B -On supplemental oxygen 4 to 6 L-24 x 7 - Last PFT 11/04/2015: Consistent with moderate to severe COPD with FEV1 1.28 L or 54% predicted (drop from previous FEV1 7 months ago at that point 2.29 L).? FVC was normal at 80% predicted.? FEV1/FVC ratio severely reduced suggesting obstructive lung disease.? Flow rate set low lung volumes were severely reduced.? There is some improvement following bronchodilation with FEV1 increasing to 1.38 L or 59% predicted.? Total lung capacity increased consistent with hyperinflation and RV/TLC is increased consistent with air trapping.? There is moderately to severely reduced gas transfer at 51%-(improved from 40% 7 months ago). Overall impression PFTs are consistent with deteriorating COPD - reported Anoro is not helping him much-changed prescription to Breztri 2 puffs twice daily.? But patient is not using Breztri or even nebulizer-he requested for albuterol inhaler only -He was not interested in pulmonary rehab -Follows up with cardiology for his biventricular MACHINE SET UP, atrial fibrillation, CAD with history of RI #Alpha-1 antitrypsin partial deficiency MZ genotype -Reported being placed on alpha-1 antitrypsin infusion weekly for Likely 6 to 7 years. - Upon review of his chart patient has MZ genotype and his levels were never < 57 mg/DL and hence I did not do any infusion. Overall?he was noncompliant with inhalers and does not want further work-up for his lung nodules, refused pulmonary rehab, refused PFTs Consult Attestations Medical Necessity Statement: Scheduled for bronchoscopic evaluation and biopsies tomorrow Time Spent in Patient Care: Greater than 35 minutes (>than 50% of time spent in counselling and/or direct pt care on unit) . Coding Level of Care Code 60815 Diagnoses Suspected lung cancer R68.89 Pneumonia J18.9 Acute on chronic respiratory failure with hypoxia and hypercapnia J96.21; J96.22 Time Spent (min) 61
[2023-02-08] MEDS: lactulose oral liq 20 gm/30 mL UDC 30 GM PO ×2 (09:48→17:10)
[2023-02-08] MEDS: pantoprazole 40 mg SDV IVP ×2 (09:48→20:30)
[2023-02-08] MEDS: sucralfate 1 gm Tablet PO ×2 (09:48→22:57)
[2023-02-08] MEDS: sennosides-docusate Tablet 1 TAB PO ×2 (09:49→17:11)
[2023-02-08] MEDS: thiamine 100 mg Tablet 50 MG PO (09:49)
[2023-02-08] MEDS: amoxicillin-clav 875-125 mg Tablet 1 TAB PO ×2 (09:49→17:11)
--- NOTE | 2023-02-08 11:04 | PM.PN ---
Subjective Subjective: Patient will go for biopsy tomorrow We will put him on BiPAP for tonight No active complaint No acute shortness of breath or chest pain Currently on [address] Peraza Patient will be n.p.o. after midnight no Episode of hemoptysis Vitals/I&O/Wt Last Vital Signs Temp 97.5 F L 02/08/23 08:00 Pulse 69 02/08/23 08:00 Resp 18 02/08/23 08:00 BP 120/63 02/08/23 08:00 Pulse Ox 95 02/08/23 08:00 O2 Del Method Nasal Cannula 02/08/23 08:00 O2 Flow Rate 4 02/08/23 08:00 02/07/23 02/08/23 02/08/23 22:59 06:59 14:59 Intake Total 480 / 720 Output Total 550 / 550 500 / 1050 Balance -70 / 170 -500 / -330 Physical Exam Narrative: Awake and alert Euvolemic No acute respiratory distress S1, S2 variable Currently on 5 L Abdomen soft Pleasant and cooperative Hard of hearing Nonfocal neuro exam GCS 15 Urinary Catheter Management: Spencer: Cath Placed During This Visit: yes Reason for Continuing Indwelling Catheter: Acute Urinary Retention or Obstruction Urinary Catheter Date of Insertion: 02/04/23 Urinary Catheter Time of Insertion: 02:30 Data 02/08/23 03:22 02/06/23 05:05 A&P Assessment and plan (1) Cellulitis: (2) Hemoptysis: (3) Sepsis: (4) Acute encephalopathy: (5) Pneumonia: (6) NSTEMI (non-ST elevated myocardial infarction): (7) Lung mass: (8) Supratherapeutic INR: (9) BPH loc w urin obs/LUTS: (10) Atrial fibrillation: Qualifiers: Atrial fibrillation type: permanent Qualified Code(s): I48.21 - Permanent atrial fibrillation (11) Hypertension: Qualifiers: Hypertension type: essential hypertension Qualified Code(s): I10 - Essential (primary) hypertension (12) Acute on chronic respiratory failure with hypoxia and hypercapnia: (13) Status post biventricular cardiac pacemaker insertion: (14) Coronary artery disease: Qualifiers: Coronary Disease-Associated Artery/Lesion type: [place] artery [place] vs. transplanted heart: [place] heart Associated angina: without angina Qualified Code(s): I25.10 - Atherosclerotic heart disease of [place] coronary artery without angina pectoris (15) Qpvrz-4-fzjgdojtixq deficiency: (16) Oxygen dependent: (17) Obstructive sleep apnea: Plan Plan for biopsy tomorrow N.p.o. after midnight Dr. Peraza consulted Patient is agreeable for chemotherapy He has been accepted by home health services Might be able to go home tomorrow after biopsy Hemoptysis: Resolved Hemoglobin stable Sepsis: Resolved [place] encephalopathy: Resolved Chronic hypoxia requiring 5 L for now at home uses 6 to 7 L I will put him on BiPAP for tonight because of his biopsy procedure for tomorrow Continue Augmentin for pneumonia Supratherapeutic INR resolved we will add Eliquis for A-fib at the time of discharge Type II [place] full code for now in case of any further worsening daughter DPOA should be notified who might opt for conservative management Attestations Medical Necessity Statement*: Continue medical management Diagnoses Cellulitis L03.90 Hemoptysis R04.2 Sepsis A41.9 Acute encephalopathy G93.40 Pneumonia J18.9 NSTEMI (non-ST elevated myocardial infarction) I21.4 Lung mass R91.8 Supratherapeutic INR R79.1 BPH loc w urin obs/LUTS N40.1 Atrial fibrillation I48.21 Atrial fibrillation type: permanent Hypertension I10 Hypertension type: essential hypertension Acute on chronic respiratory failure with hypoxia and hypercapnia J96.21; J96.22 Status post biventricular cardiac pacemaker insertion Z95.0 Coronary artery disease I25.10 Coronary Disease-Associated Artery/Lesion type: [place] artery [place] vs. transplanted heart: [place] heart Associated angina: without angina Abocn-8-lswaztmbwjc deficiency E88.01 Oxygen dependent Z99.81 Obstructive sleep apnea G47.33
--- NOTE | 2023-02-08 12:45 | PC.SOCIAL ---
Imm update Imm updated with patient and family at bedside. Copy of page 2 provided. Patient and family verbalized understanding. Copy in chart initialed, dated and timed.
[2023-02-08] MEDS: budesonide 0.5 mg/2 mL Neb INHALATION (20:08)
[2023-02-09] VITALS (25 sets, daily range): BP systolic 98–128; BP diastolic 46–75; PULSE 63–108; RESP 15–20; TEMP 36.3–37; O2SAT 84–100
[2023-02-09] MEDS: levothyroxine 75 mcg Tablet PO (05:15)
[2023-02-09 05:25] LABS: Basophils % 0.6 %; Eosinophils # 0.2 10^3/uL (0.0-0.8); Eosinophils % 4.4 %; Hematocrit 29.6 % (42.0-52.0); Hemoglobin 8.6 g/dL (11.7-16.6); Lymphocytes # 0.9 10^3/uL (0.8-4.8); Lymphocytes % 18.7 %; Mean Corpuscular HGB Conc 29.1 g/dL (30.0-36.0); Mean Corpuscular Hemoglobin 30.5 pg (28.0-34.0); Mean Platelet Volume 9.5 fL (7.4-10.4); Monocytes # 0.7 10^3/uL (0.2-0.9); Monocytes % 13.5 %; Neutrophils # 3.08 10^3/uL (1.8-7.7); Neutrophils % 61.4 %; Nucleated Red Blood Cells % 0 %; Platelet Count 284 10^3/cmm (130-400); Red Blood Count 2.82 10^6/uL (4.1-5.3); Red Cell Distribution Width 15.6 % (12.1-15.1)
[2023-02-09 05:41] LABS: Anion Gap 7.6 (5-19); Blood Urea Nitrogen 21 mg/dL (8-23); Calcium 8.6 mg/dL (8.5-10.5); Carbon Dioxide 35 mmol/L (22-29); Chloride 102 mmol/L (98-107); Glucose 93 mg/dL (65-115); Osmolality Calculated 293 mOsm/kg (285-295); Potassium 4.6 mmol/L (3.5-5.1); Sodium 140 mmol/L (136-145)
[2023-02-09] MEDS: sodium chloride 0.9% 1,000 ML 30 ML IV (06:44)
--- NOTE | 2023-02-09 07:16 | P.ANESASSM_ITS ---
Pre-Anesthetic Assessment Height/Weight: Height 1.68 m Weight 73.936 kg Temp Pulse Resp BP Pulse Ox O2 Del Method O2 Flow Rate 98.6 F 79 20 H 118/59 97 Nasal Cannula 5 02/09/23 06:37 02/09/23 06:37 02/09/23 06:37 02/09/23 06:37 02/09/23 06:37 02/09/23 06:37 02/09/23 06:37 FiO2 30 02/08/23 20:18 Preop Diagnosis: suspected lung cancer Operation Date: 02/09/23 07:00 Proposed Procedures p Bronchoscopy(Not Applicable) - Sancho Peraza MD s Ebus(Not Applicable) - Sancho Peraza MD Familial anesthetic complications: none Was Beta Neal taken within 24 hours: N/A Was Clonidine taken within 24 hours: N/A Last intake: Intake Last Liquid Date 02/08/23 Last Liquid Time 22:00 Last Solid Date 02/08/23 Last Solid Time 19:00 Exam alert and oriented x 3 Airway Submandibular: within normal limits Cervical ROM: within normal limits Mallampati: Class III Dentition: false Pulmonary Chronic Obstructive Pulmonary Disease and Sleep Apnea lung nodule, alpha-1 anti trypsin, emphysema, on 4-6LNC CV/HEM Atrial Fibrillation, Coronary Artery Disease, Congestive Heart Failure, Hypertension and Myocardial Infarction None reported Hepatic None reported GI None reported Metabolic Hyperlipidemia and Thyroid Disease Anesthetic Plan ASA status: 4 Anesthesia: Anesthesia Evaluation and General Other: spoke with patient about increased risk for retirement intubation post procedure, pt states his understanding and wishes to proceed. Risk of > 500 ml blood loss (7ml/kg in children): No Medications/Allergies Home Medications Medication Instructions Recorded Confirmed Last Taken Type oxygen-air delivery systems ##1 10/01/19 02/03/23 Unknown History psyllium husk 3.4 gram/5.4 gram 1 tbsp PO DAILY 10/26/21 02/03/23 02/03/23 History oral powder (Metamucil) albuterol sulfate 2.5 mg/3 mL 2.5 mg (3 mL) inhalation Q4H PRN 03/18/22 02/03/23 Unknown Rx (0.083 %) solution for nebulization shortness of breath or wheezing #180 mL azelastine 137 mcg (0.1 %) nasal 1 spray intranasal BID 30 days #30 05/20/22 02/03/23 02/03/23 Rx spray aerosol mL potassium chloride 10 mEq 10 meq PO DAILY 09/16/22 02/03/23 02/03/23 History capsule,extended release warfarin 10 mg tablet 10 mg PO DAILY 09/16/22 02/03/23 Unknown History clindamycin HCl 150 mg capsule 450 mg PO Q8H 02/03/23 02/03/23 02/03/23 History pyridoxine (vitamin B6) 50 mg 50 mg PO DAILY 02/03/23 02/03/23 Unknown History capsule (Vitamin B-6) thiamine HCl (vitamin B1) 50 mg 50 mg PO DAILY 02/03/23 02/03/23 Unknown History tablet (Vitamin B-1) vitamin B complex 1 tab PO DAILY 02/03/23 02/03/23 Unknown History warfarin 5 mg tablet See Rx Instructions .Route .COMPLEX 02/03/23 02/03/23 Unknown History levothyroxine 88 mcg tablet 88 mcg PO DAILY 02/04/23 02/04/23 02/03/23 History Allergies Allergy/AdvReac Type Severity Reaction Status Date / Time No Known Allergies Allergy Verified 02/03/23 16:11 Current Medications Generic Name Dose Route Start Last Admin Trade Name Freq PRN Reason Stop Dose Admin Acetaminophen 650 mg 02/03/23 21:31 02/04/23 07:25 Acetaminophen 325 Mg Tablet PO 650 mg Q6H PRN Administration Mild/Mod Pain Or Temp >/= 101 Albuterol/Ipratropium 3 ml 02/04/23 17:35 02/06/23 08:31 Ipratropium-Albuterol 3 Ml Neb INHALATION 3 ml Q4H.RESPIRATORY PRN Administration SHORTNESS OF BREATH Amoxicillin/Clavulanate Potassium 1 tab 02/05/23 18:00 02/08/23 17:11 Amoxicillin-Clav 875-125 Mg Tablet PO 1 tab BID KEVIN Administration Protocol Budesonide 0.5 mg 02/06/23 11:00 02/08/23 20:08 Budesonide 0.5 Mg/2 Ml Neb INHALATION 0.5 mg BID.RESPIRATORY KEVIN Administration Sodium Chloride 1,000 mls @ 30 mls/hr 02/09/23 06:45 02/09/23 06:44 Sodium Chloride 0.9% IV 02/10/23 06:44 30 mls/hr .Q24H KEVIN Administration Lactulose 30 gm 02/05/23 10:00 02/08/23 17:10 Lactulose Oral Liq 20 Gm/30 Ml Udc PO 30 gm BID KEVIN Administration Levothyroxine Sodium 75 mcg 02/04/23 06:00 02/09/23 05:15 Levothyroxine 75 Mcg Tablet PO 75 mcg DAILY@0600 KEVIN Administration Morphine Sulfate 1 mg 02/04/23 00:08 02/04/23 08:57 Morphine 4 Mg/Ml Sdv 1 Ml IVP 1 mg Q8H PRN Administration SEVERE PAIN Non-Formulary Med ( 1 each 02/05/23 09:00 02/08/23 17:12 Azelastine 137 Mcg NOSTRIL-B 1 each BID KEVIN Administration Non-Formulary Med ( 1 each 02/04/23 20:25 02/08/23 17:15 Albuterol Inhaler INHALATION 1 each Q6H.RESP PRN Administration SHORTNESS OF BREATH Pantoprazole Sodium 40 mg 02/03/23 21:31 02/08/23 20:30 Pantoprazole 40 Mg Sdv IVP 40 mg Q12H KEVIN Administration Senna/Docusate Sodium 1 tab 02/05/23 18:00 02/08/23 17:11 Sennosides-Docusate Tablet PO 1 tab BID KEVIN Administration Sucralfate 1 gm 02/03/23 22:00 02/08/23 22:57 Sucralfate 1 Gm Tablet PO 1 gm Q12H KEVIN Administration Thiamine Mononitrate 50 mg 02/04/23 09:00 02/08/23 09:49 Thiamine 100 Mg Tablet PO 50 mg DAILY KEVIN Administration PFS Anesthesia Medical History Keqfh-4-kecmwrlbhnn deficiency Anticoagulant long-term use Atrial fibrillation Bladder cancer BPH loc w urin obs/LUTS Bronchiectasis 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 Cellulitis and abscess of right leg CHF (congestive heart failure) Constipation COPD (chronic obstructive pulmonary disease) Coronary artery disease Diverticulitis Dyslipidemia Dyspnea Emphysema (subcutaneous) (surgical) resulting from a procedure Erectile dysfunction Hypertension Hypothyroidism Lung nodule Malignant neoplasm of posterior wall of urinary bladder Myocardial infarction Nasal obstruction Obstructive sleep apnea Oxygen dependent Pacemaker Sinusitis Weakness Surgical History H/O adenoidectomy H/O bilateral cataract extraction H/O varicose vein ligation and stripping History of tonsillectomy Hx of removal of cyst Status post biventricular cardiac pacemaker insertion Family History Mother CAD (coronary artery disease) Social History Smoking and tobacco status: former smoker Quit status (tobacco): has quit using tobacco Year quit tobacco: 1994 - 1.5 PPD x 40 Years Alcohol intake: current Alcohol intake frequency: 0-2 Drinks per Day Substance/Drug Use: never Adopted: No Caregiver/support person: No Lives independently: No Household members: spouse Marital status: / Current occupational status: retired Do you think of yourself as: Straight/Heterosexual Current gender identity: Male Data Anesthesia 02/09/23 05:19 02/09/23 05:19 Short CBC 02/08/23 02/09/23 Range/Units 03:22 05:19 WBC 5.3 5.0 (4.0-10.0) 10^3/uL Hgb 8.6 L 8.6 L (11.7-16.6) g/dL Hct 29.1 L 29.6 L (42.0-52.0) % MCV 103.6 H 105.0 H (80-94) fl Plt Count 301 284 (130-400) 10^3/cmm Neut % (Auto) 70.5 61.4 % Neut # (Auto) 3.76 3.08 (1.8-7.7) 10^3/uL BMP 02/09/23 05:19 Sodium 140 Potassium 4.6 Chloride 102 Carbon Dioxide 35 H BUN 21 Creatinine 0.5 L Glucose 93 Calcium 8.6 Microbiology 02/03/23 22:34 Blood Culture - Final Blood NO GROWTH AFTER 5 DAYS 02/03/23 22:25 Blood Culture - Final Blood NO GROWTH AFTER 5 DAYS Cardiac Studies: Echocardiogram 02/04/23
[2023-02-09] MEDS: lidocaine 1% INJ 10 mL (per mL) XX (07:42)
[2023-02-09 08:39] LABS: Apprearance, Bronch Wash Bloody (CLEAR); Bronch Source Right Upper Lobe; Color, Bronc Wash Slight Pink; Cyto Order Verification Order Verified; PATH Referral Yes
--- NOTE | 2023-02-09 09:15 | SUR.OPER ---
1 ml of epi diluted with 5ml of ns used.
--- NOTE | 2023-02-09 09:38 | XR_ITS ---
WS: [id number] Portable AP semiupright chest, 02/09/2023 Clinical Data: post-bronchoscopy Comparison: Two-view chest, 09/13/2019 Findings: There is a patchy opacity in right lower lobe which may represent atelectasis, pneumonia an d minimal effusion. There are chronic fibrotic changes throughout both lungs. The heart is enlarged. The aortic arch is tortuous. There is a pacemaker generator overlying the left lateral chest with mul tiple wires ending in the heart. There are monitor leads on the chest and abdominal wall. XR/XR chest 1V portable [id number] Impression: 1. Patchy right lower lobe opacity which may represent a combination of pneumon ia, atelectasis and effusion. 2. Cardiomegaly and atherosclerosis. 3. Chronic interstitial change in both lungs. 4. Complex cardiac pacemaker and intracardiac leads.
--- NOTE | 2023-02-09 09:41 | PM.OP ---
Operative Report Date of procedure: February 09, 2023 Pre-op diagnosis: Preop Diagnosis suspected lung cancer Post-op diagnosis: Suspected malignancy Procedure done: 48192 Dx Bronchoscope w/BAL 72643 Dx Bronchoscopy w/Bronchial or Endobronchial biopsy(s), single or multiple sites 30653 Bronchoscopy w/ therapeutic aspiration of the tracheobronchial tree (clearance of airway secretions, removal of mucus plugs) 68846 EBUS Sampling >=3 nodes Surgeon: Sancho Peraza MD, [facility] Brief History: David Ascencio is a 87 year old male with a past medical history? 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 ischemic cardiomyopathy.??,?hypertension, CAD, severe COPD, suspected lung cancer, patient declined to do any further work-up or surveillance, presented to [facility] from his primary care provider's office due to concerns for supratherapeutic INR. During this admission-CT chest showed pneumonia as well as redemonstrated mediastinal and hilar lymph nodes with lung nodules.? Patient has PET/CT 04/18/2020 which showed 2 right upper lobe nodules 1 measuring 1.4 x 2.6 cm with SUV 6 and second nodule 1.3 x 0.9 cm with SUV 5.1. Multiple mediastinal nodes are also FDG positive.There are right hilar, right and left paratracheal lymph nodes that are FDG avid.? Right paratracheal lymph node SUV 3.9. Repeat CT August 2020 Redemonstrated pleural-based density in right upper lobe and there was persistent bilateral hilar mediastinal lymphadenopathy , However there is no significant worsening compared to his previous CT. Repeat CT chest March 2021 a stable 8 mm lingular nodule.? New 13 mm nodule in right upper lobe and opacification of medial part of right lower lung base. Patient is extremely hard of hearing and has to explain everything multiple times.? And has to write on paper most of the times to make sure he understood.? As outpatient discussed with the patient regarding options of bronchoscopy /ebus guided biopsies. Since patient Refused to undergo any procedure, Decision at that time was made to stop doing surveillance CT scans.Also despite encouraging him to do pulmonary function test-he never had PFTs done. This admission given his CT findings of mediastinal hilar lymphadenopathy concerning for malignancy-I was consulted for EBUS guided biopsies. Patient wanted to have biopsies and wanted to know his diagnosis and depending on his results he will discuss with oncology.? He has 2 daughters 1 lives in [place] and another 1 is currently at bedside-both would want to respect his wishes.? Patient and his both daughters understand the risks and complications associated with this procedure. Today scheduled for bronchoscopic evaluation of airways and endobronchial ultrasound-guided biopsies of hilar/mediastinal lymph nodes Procedure: 80147 Dx Bronchoscope w/BAL 17847 Dx Bronchoscopy w/Bronchial or Endobronchial biopsy(s), single or multiple sites 21390 Bronchoscopy w/ therapeutic aspiration of the tracheobronchial tree (clearance of airway secretions, removal of mucus plugs) 72656 EBUS Sampling >=3 nodes Indication: CT evidence of mediastinal and hilar lymphadenopathy concerning for malignancy Anesthesia: General anesthesia. Local anesthesia: The mello in the right and left mainstem bronchi were anesthetized with 1% lidocaine, 3 mL. Description of the procedure: The procedure was explained to the patient and the consent was obtained. The patient was brought to the OR. The patient underwent induction for general anesthesia and laryngeal mask airway (LMA) placement for airway. The bronchoscope was advanced through the LMA. The vocal cords were mobile. 1 mL of 1% lidocaine instilled. The bronchoscope was advanced through the vocal cords into the trachea without difficulty. The tracheal mucosa appeared normal, no endotracheal lesion was seen. The mello was sharp. There is an obvious bloody thick mucous plug blocking right mainstem bronchus. 1 mL each of 1% lidocaine was instilled in the trachea the right and left mainstem bronchi for local anesthesia. It took several minutes to suction out thick bloody mucous plug from the right mainstem bronchus, right upper lobe, right lower lobe bronchus.(50533). After airway clearance- in a systematic manner bilateral bronchial tree was then examined. The bronchoscope was then introduced into the right mainstem bronchus. The right upper lobe, right middle lobe and right lower lobe bronchi were examined up to the third subsegmental level. There was some slow oozing of blood noted in anterior segment of right upper lobe. 5 mL diluted epinephrine was instilled. The bronchoscope was retracted into bronchus intermedius and advanced to examine right middle lobe and right lower lobe subsegments. There is no definite endobronchial lesion but airways appeared edematous. There was some thick mucous plugs mixed with blood and right lower lobe which were suctioned right away (50946). The bronchoscope was advanced into the left mainstem bronchus. The mucosa appeared normal with no endobronchial lesions. The left upper lobe, and lingula were examined up to the third subsegmental level and no abnormalities were identified. Mucosa of left upper lobe and lingula appeared normal with no endobronchial lesion. There were clear secretions which were suctioned right away(95140). Bronchioloalveolar lavage was aspirated from anterior segment of right upper lobe. After making sure there is no overt bleeding from right upper lobe anterior segment, bronchoscope was retracted and endobronchial ultrasound (33385) was introduced. Identified a lymph nodes at station 4L, station 7 and station 4L. Using [id number] were taken from all 3 lymph node stations (20803); I made at least 3 passes from each site and rest of the tissue was placed in separate formalin cups with appropriate labeling and sent for histopathology review. After making sure there is no active bleeding, bronchoscope retracted and procedure terminated. Samples: EBUS- FNAC Biopsies from all 3 lymph node stations (27070); A. Station 4L : The material was placed in formalin and sent for histopathology review C. Station 7 : The material was placed in formalin sent for histopathology review D. Station 4R : The material was placed in formalin and sent for histopathology review 1. Bronchoalveolar lavage (55176) was performed after wedging the bronchoscope at the entrance of anterior segment of right upper lobe lobe. 40 mL of saline was instilled, fluid return was 15 mL. Bronchoalveolar lavage specimen was sent for cell count and differential, gram stain and culture, cytology Complications: None.The patient was extubated and transferred to medical floor in stable condition. Postprocedure chest x-ray: No evidence of pneumothorax Pt, is aware that I am going to call them to update final biopsy results once available. Due to mild oozing of blood in the right anterior upper lobe segment lesion prior to biopsies-I have recommended hospitalist to defer restarting anticoagulation for 2 more days. . Related Problem List Diagnoses (1) Suspected lung cancer:
--- NOTE | 2023-02-09 10:01 | P.DS_ITS ---
Discharge Providers Date of Admission: 02/03/23 20:06 Date of Discharge: February 09, 2023 Attending Provider at Admission: Theodore Felipe MD Attending Provider at Discharge: En Rahman MD Primary Care Provider: Zachary Celis MD Diagnoses at Discharge Discharge Diagnosis (1) Suspected lung cancer: Status: Acute (2) Pneumonia: Status: Acute (3) Acute on chronic respiratory failure with hypoxia and hypercapnia: Status: Acute Reason for Visit Reason for Visit: abnormal Labs Hospital Course Hospital Course 87-year-old male with past medical history significant for oxygen dependent COPD, requires 6 to 7 L of oxygen at baseline at home, diastolic CHF, history of bladder cancer, lung mass, alpha-1 antitrypsin COPD, A-fib on Coumadin presented with shortness of breath, altered mental status, and supratherapeutic INR. Patient was given FFP, INR was reversed down to 2, at the time of discharge Coumadin was discontinued and Eliquis was added. Patient was diagnosed with pneumonia for which he required broad-spectrum antibiotics which were de-escalated to Augmentin, his hemoglobin remained stable, he was experiencing mild hemoptysis however no active GI bleed. We also treated him for cellulitis of left lower extremity, no signs of DVT, ultrasound showed resolving hematoma Metabolic encephalopathy resolved, patient was kept on full CODE STATUS, goals of care discussed multiple times with the patient and his family, patient is stating that in case of further worsening he would like to stay home and stay among his loved ones, he might consider palliative care down the road but for now he is not ready yet. After multiple family discussions, patient and family both decided to pursue histopathological diagnosis, Dr. Peraza was consulted, patient went for biopsy on 02/09 currently review operative note from that date. Initially patient was reluctant to go for chemotherapy as well however he would like to consider chemotherapy after knowing the diagnosis With PT he required minimal assistance, he might be able to go home with home health services, he has been accepted by home health services, as per the family patient had very poor living conditions, there were a lot of roaches and some other concerns from people living on his property. Overall patient seems to be very noncompliant, it is very hard to communicate with him sometimes because of his hearing difficulty, however he does carry capacity to make decisions for himself, [place] who is leaning towards comfort care in case of further worsening because of his multiple comorbid conditions At baseline he is requiring 5 to 6 L of oxygen, because of his noncompliance he has stopped taking his alpha-1 antitrypsin that he was taking weekly every Monday, his previous records showed that he was on Lupron every, Brovana Physical Exam Narrative: Muscle mass loss Laying supine Awake and alert Currently on 5 L Wheezing improved Hemodynamically stable Awake and alert Nonfocal neuro exam Urinary Catheter Management: Spencer: Cath Placed During This Visit: yes Reason for Continuing Indwelling Catheter: Acute Urinary Retention or Obstruction Urinary Catheter Date of Insertion: 02/04/23 Urinary Catheter Time of Insertion: 02:30 Discharge Data Studies Completed and Pending Completed Studies During Hospitalization Category Date Time Status CT abdomen pelvis w con* [id number] Stat Cat Scan 02/03/23 17:[address] chest wo con [id number] Stat Cat Scan 02/03/23 18:29 [place] [id number] Routine Ultrasound 02/04/23 20:33 Completed CV. echo complete* [id number] Routine Ultrasound 02/04/23 06:00 Completed Pending at discharge Category Date Time Status CXRP [XR chest 1V portable [id number]] Routine Exams 02/09/23 09:38 Ordered ABO/Rh Type Stat Lab 02/03/23 17:03 Results Bronch Wash Analysis Routine Lab 02/09/23 08:10 Results Bronch Washing Culture & GS Routine Lab 02/09/23 08:10 Received Complete Crossmatch Stat Lab 02/03/23 17:03 Results FFP [Frozen Plasma FZ <24 1st Cont] Routine Lab 02/03/23 17:03 Results Leukocyte Reduced RBC Routine Lab 02/03/23 17:03 Results Occult Blood Stool [Immunochemical Fecal OCB] Stat Lab 02/03/23 18:07 Ordered Type and Screen Stat Lab 02/03/23 17:03 Results Cytology [PTH] Routine Pth 02/09/23 08:10 Received Pathology: Surgical [PTH] Routine Pth 02/09/23 09:08 Ordered Radiology Impressions Abdomen/Pelvis CT 02/03/23 17:01 IMPRESSION: 1. Diverticulosis of the colon without diverticulitis. 2. Larger 4.4 cm paratracheal lymph node. A malignant neoplastic process is not excluded. 3. Right lower lobe opacities most likely represents pneumonia or aspiration. 4. Ground-glass opacities in the left lung base could represent pneumonia or pulmonary edema. 5. Stable fluid density lesion in the right retrocrural location. This could represent a congenital cyst or low-density lymph nodes. 6. Stable 7 mm left upper lobe pulmonary nodule. Near 2 year stability favors a benign process. COMMENTS: 1. Consistent with the [employer]'s Incidental Findings Committee white paper (J Am Marlene Radiol 2018): Any incidental renal lesion less than 1 cm or classified as too small to characterize, or any incidental cystic renal lesion characterized as simple-appearing, is likely benign. No follow-up imaging is recommended for these lesions per consensus recommendations based on imaging criteria. 2. For patients with an IVC filter, recommend assessment for a management plan for the patient's IVC filter. If there is no established management plan, recommend referral to an interventional clinician on a nonemergent basis for evaluation. Chest CT 02/03/23 18:29 IMPRESSION: 1. Masslike consolidation in the infrahilar right lower lobe with filling defects in the bronchi. This could represent pneumonia but a neoplastic process is not excluded. Follow-up with bronchoscopy or tissue sampling is recommended. 2. New nodules in the right upper and middle lobes and stable 7 mm lingular nodule. Metastatic disease is not excluded. 3. Patchy pneumonia throughout the right lung. 4. Ground-glass opacities in the left lung could represent pulmonary edema or pneumonia. 5. Prominent mediastinal, right paratracheal, and retrocrural lymph nodes. Malignant neoplasm or metastasis is not excluded. Venous Duplex 02/04/23 20:33 IMPRESSION: No evidence of deep vein thrombosis. Laboratory Results WBC 5.0 10^3/uL (4.0-10.0) 02/09/23 05:19 RBC 2.82 10^6/uL (4.1-5.3) L 02/09/23 05:19 Hgb 8.6 g/dL (11.7-16.6) L 02/09/23 05:19 Hct 29.6 % (42.0-52.0) L 02/09/23 05:19 MCV 105.0 fl (80-94) H 02/09/23 05:19 MCH 30.5 pg (28.0-34.0) 02/09/23 05:19 MCHC 29.1 g/dL (30.0-36.0) L 02/09/23 05:19 RDW 15.6 % (12.1-15.1) H 02/09/23 05:19 Plt Count 284 10^3/cmm (130-400) 02/09/23 05:19 MPV 9.5 fL (7.4-10.4) 02/09/23 05:19 Neut % (Auto) 61.4 % 02/09/23 05:19 Lymph % (Auto) 18.7 % 02/09/23 05:19 Dare % (Auto) 13.5 % 02/09/23 05:19 Eos % (Auto) 4.4 % 02/09/23 05:19 Baso % (Auto) 0.6 % 02/09/23 05:19 Neut # (Auto) 3.08 10^3/uL (1.8-7.7) 02/09/23 05:19 Lymph # (Auto) 0.9 10^3/uL (0.8-4.8) 02/09/23 05:19 Dare # (Auto) 0.7 10^3/uL (0.2-0.9) 02/09/23 05:19 Eos # (Auto) 0.2 10^3/uL (0.0-0.8) 02/09/23 05:19 Baso # (Auto) 0.0 10^3/uL (0.0-0.1) 02/09/23 05:19 Nucleated RBC % (auto) 0 % 02/09/23 05:19 Nucleated RBCs # 0.0 /100WBC 02/09/23 05:19 PT 19.60 SECONDS (12.1-14.9) H 02/06/23 05:05 INR 1.60 (0.8-1.2) H 02/06/23 05:05 APTT 163.7 SECONDS (23.9-36.7) H* 02/03/23 15:49 Specimen Type Arterial 02/04/23 00:54 Sample Site Radial, right 02/04/23 00:54 ABG pH 7.40 (7.35-7.45) 02/04/23 00:54 ABG pCO2 57.7 mmHg (35-45) H 02/04/23 00:54 ABG pO2 66.8 mmHg (80.0-100.0) L 02/04/23 00:54 ABG HCO3 35.3 mmol/L (22-26) H 02/04/23 00:54 ABG Base Excess 9.1 mmol/L (-2.0-2.0) H 02/04/23 00:54 Jl Test Pos 02/04/23 00:54 Hematocrit 26.7 % (42-52) L 02/04/23 00:54 O2 Delivery Device Nc 02/04/23 00:54 O2 Liters/Min 5.0 % 02/04/23 00:54 Extractor And Wringer Operator ID Jewel 02/04/23 00:54 Sodium 140 mmol/L (136-145) 02/09/23 05:19 Potassium 4.6 mmol/L (3.5-5.1) 02/09/23 05:19 Chloride 102 mmol/L (98-107) 02/09/23 05:19 Carbon Dioxide 35 mmol/L (22-29) H 02/09/23 05:19 Anion Gap 7.6 (5-19) 02/09/23 05:19 BUN 21 mg/dL (8-23) 02/09/23 05:19 Creatinine 0.5 mg/dL (0.7-1.2) L 02/09/23 05:19 GFR Calculation Not Reportable 02/09/23 05:19 Glucose 93 mg/dL (65-115) 02/09/23 05:19 Estimat Average Glucose 114 02/03/23 15:49 Hemoglobin A1c 5.6 % (4.0-6.0) 02/03/23 15:49 Calculated Osmolality 293 mOsm/kg (285-295) 02/09/23 05:19 Lactic Acid 0.7 mmol/L (0.5-2.2) 02/03/23 21:32 Calcium 8.6 mg/dL (8.5-10.5) 02/09/23 05:19 Phosphorus 2.9 mg/dL (2.5-4.5) 02/04/23 05:21 Magnesium 1.8 mg/dL (1.7-2.3) 02/04/23 05:21 Iron 43 ug/dL (59-158) L 02/03/23 16:48 TIBC 237 mcg/dl 02/03/23 16:48 % Saturation 18.1 % (20-50) L 02/03/23 16:48 Unsat Iron Binding 194 ug/dL (112-347) 02/03/23 16:48 Ferritin 414 ng/mL (30-400) H 02/03/23 16:48 Total Bilirubin 0.8 mg/dL (0.15-1.2) 02/05/23 04:14 AST 24 U/L (0-40) 02/05/23 04:14 ALT 10 U/L (0-41) 02/05/23 04:14 Alkaline Phosphatase 89 U/L (40-130) 02/05/23 04:14 Troponin T Baseline 21 ng/L (0-15) H 02/03/23 15:49 Troponin T 120 Minute 19.04 ng/L (0-15) H 02/03/23 18:02 Delta Troponin T -1.96 ABS# (0-10) L 02/03/23 18:02 Troponin T Hi Sens 6Hr 19.64 ng/L (0-15) H 02/03/23 21:32 Troponin T Hi Sens 6Hr Delta -1.36 ng/L (0-12) L 02/03/23 21:32 NT-Pro-B Natriuret Pep 2409 pg/mL (0-450) H 02/03/23 16:48 Total Protein 6.0 g/dL (6.6-8.7) L 02/05/23 04:14 Albumin 2.8 g/dL (3.5-5.2) L 02/05/23 04:14 Globulin 3.2 g/dL (1.3-4.6) 02/05/23 04:14 Triglycerides 83 mg/dL (0-150) 02/03/23 16:48 Cholesterol 128 mg/dL (0-200) 02/03/23 16:48 LDL Cholesterol, Calc 66 mg/dL (50-129) 02/03/23 16:48 HDL Cholesterol 45 mg/dL (60-100) L 02/03/23 16:48 LDL/HDL Ratio 1.47 RATIO (0.00-3.22) 02/03/23 16:48 Cholesterol/HDL Ratio 2.84 mg/dL (1.0-5.00) 02/03/23 16:48 Vitamin B12 1118 pg/mL (232-1245) 02/03/23 16:48 Folate > 20.0 ng/mL (4.5-32.2) 02/03/23 22:34 Procalcitonin 0.03 ng/mL (0-0.5) 02/03/23 16:48 TSH 4.71 uIU/mL (0.27-4.20) H 02/03/23 16:48 Urine Color Red Willow (Yellow) 02/03/23 Unknown Urine Appearance Clear (CLEAR) 02/03/23 Unknown Urine pH 5 (5-7) 02/03/23 Unknown Ur Specific [place] 1.010 (1.005-1.030) 02/03/23 Unknown Urine Protein Neg (Negative) 02/03/23 Unknown Urine Glucose (UA) Norm (Normal) 02/03/23 Unknown Urine Ketones Negative (Negative) 02/03/23 Unknown Urine Blood 2+ (Negative) H 02/03/23 Unknown Urine Nitrate Negative (Negative) 02/03/23 Unknown Urine Bilirubin 1+ (Negative) H 02/03/23 Unknown Urine Urobilinogen 4 mg/dL (Negative) H 02/03/23 Unknown Ur Leukocyte Esterase Negative (Negative) 02/03/23 Unknown Urine RBC 5-10 /hpf (0-2) H 02/03/23 Unknown Urine WBC None /hpf (0-5) 02/03/23 Unknown Ur Squamous Epith Cells 0-4 /hpf (0-5) H 02/03/23 Unknown Amorphous Sediment Not Reportable 02/03/23 Unknown Urine Bacteria None /hpf (NONE) 02/03/23 Unknown Bronch Specimen Source Right upper lobe 02/09/23 08:10 Bronchial Fluid Color Slight pink 02/09/23 08:10 Bronchial Fluid Appearance Bloody (CLEAR) 02/09/23 08:10 Bronchial Diff Comment Yes 02/09/23 08:10 Urine Opiates Screen Negative ng/mL (Negative) 02/03/23 Unknown Ur Barbiturates Screen Negative ng/mL (Negative) 02/03/23 Unknown Ur Phencyclidine Scrn Negative ng/mL (Negative) 02/03/23 Unknown Ur Amphetamines Screen Negative ng/mL (Negative) 02/03/23 Unknown U Benzodiazepines Scrn Negative ng/mL (Negative) 02/03/23 Unknown Urine Cocaine Screen Negative ng/mL (Negative) 02/03/23 Unknown U Marijuana (THC) Screen Negative ng/mL (Negative) 02/03/23 Unknown Ethyl Alcohol < 10 mg/dL (0-10) 02/03/23 16:48 Blood Type O Positive 02/03/23 17:03 Rho(D) Type Positive 02/03/23 17:03 Antibody Screen Negative 02/03/23 17:03 Crossmatch See Detail 02/03/23 17:03 Vitals Last Vital Signs Temp 98 F 02/09/23 09:18 Pulse 69 02/09/23 09:35 Resp 20 H 02/09/23 09:35 BP 118/52 02/09/23 09:35 Pulse Ox 86 L 02/09/23 09:35 O2 Del Method Nasal Cannula 02/09/23 09:35 O2 Flow Rate 6 02/09/23 09:35 FiO2 30 02/08/23 20:18 Discharge Plan Discharge Patient Disposition: Home Health Service Condition: Fair Prescriptions: New albuterol sulfate 90 mcg/actuation HFA aerosol inhaler 2 inh inhalation Q8H PRN (Reason: shortness of breath or wheezing) Qty: 8.5 4RF Spiriva Respimat 2.5 mcg/actuation mist 2 inh inhalation DAILY 30 Days Qty: 4 4RF Eliquis 5 mg tablet 5 mg PO BID Qty: 60 4RF fluticasone propion-salmeterol [Advair HFA] 115-21 mcg/actuation HFA aerosol inhaler 2 inh inhalation BID 30 Days Qty: 12 4RF Continued (DME) oxygen-air delivery systems Device See Rx Instructions .ROUTE .MEDSUPPLY Qty: 1 Rx Instructions: As directed Metamucil 3.4 gram/5.4 gram powder 1 tbsp PO DAILY Rx Instructions: mix into at least 8 oz of water or juice before administering albuterol sulfate 2.5 mg /3 mL (0.083 %) solution for nebulization 2.5 mg INHALATION Q4H PRN (Reason: shortness of breath or wheezing) Qty: 180 5RF azelastine 137 mcg (0.1 %) aerosol,spray 1 spray intranasal BID 30 Days Qty: 30 4RF Rx Instructions: administer into each nostril vitamin B complex Tablet 1 tab PO DAILY Vitamin B-1 50 mg Tablet 50 mg PO DAILY Vitamin B-6 50 mg Capsule 50 mg PO DAILY levothyroxine 88 mcg Tablet 88 mcg PO DAILY Discontinued potassium chloride 10 mEq capsule, extended release 10 meq PO DAILY warfarin 10 mg tablet 10 mg PO DAILY Rx Instructions: 10 mg daily everyday but monday clindamycin HCl 150 mg capsule 450 mg PO Q8H warfarin 5 mg tablet See Rx Instructions .ROUTE .COMPLEX Rx Instructions: 5 mg orally on monday Discharge Orders: Discharge Order (Routine); Ordered 02/09/23 Ordered By: En Rahman Referrals: DatarSancho MD [Physician] - 7-10 days RoZachary clayton MD [Primary Care Provider] - 02/15/23 3:00 pm Patient Instructions: Opioid Safety Discharge Attestations Time Spent in Discharge Care*: greater than 30 min Quality Metrics Clinical Quality Measures [ No reported AMI, CVA or VTE this stay] Coding Level of Care Code Acute Code for Chg Fwd Diagnoses Suspected lung cancer R68.89 Pneumonia J18.9 Acute on chronic respiratory failure with hypoxia and hypercapnia J96.21; J96.22
[2023-02-09 10:16] LABS: Total Cells Counted Bronch 200
--- NOTE | 2023-02-09 10:42 | PC.NURSE ---
patient returned to room 279 from PACU.
--- NOTE | 2023-02-09 11:25 | P.PN_ITS ---
Subjective Subjective: Patient and family both changed her mind, patient is stating now he wants to go to SNF, director of casework department updated, will find SNF placement, Discontinued discharge orders Vitals/I&O/Wt Last Vital Signs Temp 98.3 F 02/09/23 10:40 Pulse 69 02/09/23 10:40 Resp 16 02/09/23 10:40 BP 109/58 02/09/23 10:40 Pulse Ox 94 02/09/23 10:18 O2 Del Method Nasal Cannula 02/09/23 10:18 O2 Flow Rate 7 02/09/23 10:44 FiO2 30 02/08/23 20:18 02/08/23 02/09/23 02/09/23 22:59 06:59 14:59 Intake Total 240 / 600 900 / 900 Output Total 850 / 850 0 / 0 Balance 240 / 600 -850 / -250 900 / 900 Physical Exam 2 Narrative: Muscle mass loss Laying supine Awake and alert Currently on 5 L Wheezing improved Hemodynamically stable Awake and alert Nonfocal neuro exam Urinary Catheter Management: Spencer: Cath Placed During This Visit: yes Reason for Continuing Indwelling Catheter: Acute Urinary Retention or Obstruction Urinary Catheter Date of Insertion: 02/04/23 Urinary Catheter Time of Insertion: 02:30 Data 02/09/23 05:19 02/09/23 05:19 Micro: Microbiology 02/03/23 22:34 Blood Culture - Final Blood NO GROWTH AFTER 5 DAYS 02/03/23 22:25 Blood Culture - Final Blood NO GROWTH AFTER 5 DAYS A&P Assessment and plan (1) Suspected lung cancer: (2) Cellulitis: (3) Hemoptysis: (4) Sepsis: (5) Acute encephalopathy: (6) NSTEMI (non-ST elevated myocardial infarction): (7) Pneumonia: (8) Acute on chronic respiratory failure with hypoxia and hypercapnia: (9) Chronic respiratory failure with hypoxia: (10) [id number] deficiency: (11) Atrial fibrillation: Qualifiers: Atrial fibrillation type: permanent Qualified Code(s): I48.21 - Permanent atrial fibrillation (12) Lung mass: Plan Currently on 5 L doing well Status post bronchoscopy for the lung biopsy Patient is awaiting SNF placement I will add Eliquis discontinue Coumadin Hemoptysis slightly better Cellulitis improving For constipation he can get lactulose Full code He can have regular diet Start Eliquis today 2 more days of Augmentin Attestations Medical Necessity Statement*: Continue medical management Diagnoses Suspected lung cancer R68.89 Cellulitis L03.90 Hemoptysis R04.2 Sepsis A41.9 Acute encephalopathy G93.40 NSTEMI (non-ST elevated myocardial infarction) I21.4 Pneumonia J18.9 Acute on chronic respiratory failure with hypoxia and hypercapnia J96.21; J96.22 Chronic respiratory failure with hypoxia J96.11 [id number] deficiency E88.01 Atrial fibrillation I48.21 Atrial fibrillation type: permanent Lung mass R91.8
[2023-02-09] MEDS: acetylcysteine 200 mg/mL SDV 4 mL 100 MG INHALATION ×2 (15:54→21:27)
--- NOTE | 2023-02-09 16:02 | ANE.PACU2 ---
Inpatient post-anesthesia follow up: Airway intact: Yes Vital signs: Temperature 98.3 F Pulse Rate 70 Respiratory Rate 18 Blood Pressure 110/56 Pulse Oximetry 100 Oxygen Delivery Me thod Nasal Cannula Oxygen Flow Rate 6 Fraction of Inspir ed Oxygen 30 Hydration adequate: Yes Nausea and vomiting: No Pain level: 2 Mental status: Baseline
[2023-02-09 16:26] LABS: SARS Covid-2 Antigen negative (Negative)
[2023-02-09] MEDS: amoxicillin-clav 875-125 mg Tablet 1 TAB PO (17:30)
[2023-02-09] MEDS: pantoprazole 40 mg SDV IVP (20:32)
[2023-02-09] MEDS: budesonide 0.5 mg/2 mL Neb INHALATION (21:27)
[2023-02-09] MEDS: sodium chloride 3.5% neb 4 mL Neb INHALATION (21:28)
[2023-02-10 05:36] LABS: Eosinophils # 0.1 10^3/uL (0.0-0.8); Eosinophils % 0.9 %; Lymphocytes # 1.1 10^3/uL (0.8-4.8); Lymphocytes % 19.3 %; Mean Corpuscular HGB Conc 29.6 g/dL (30.0-36.0); Mean Corpuscular Hemoglobin 30.9 pg (28.0-34.0); Mean Corpuscular Volume 104.2 fl (80-94); Mean Platelet Volume 10.5 fL (7.4-10.4); Monocytes # 0.6 10^3/uL (0.2-0.9); Monocytes % 10.7 %; Nucleated Red Blood Cells % 0 %; Platelet Count 284 10^3/cmm (130-400); Red Blood Count 2.59 10^6/uL (4.1-5.3); Red Cell Distribution Width 15.5 % (12.1-15.1); White Blood Count 5.4 10^3/uL (4.0-10.0)
[2023-02-10 05:58] LABS: Anion Gap 10.7 (5-19); Blood Urea Nitrogen 21 mg/dL (8-23); Carbon Dioxide 31 mmol/L (22-29); Chloride 102 mmol/L (98-107); Glucose 105 mg/dL (65-115); Osmolality Calculated 291 mOsm/kg (285-295); Potassium 4.7 mmol/L (3.5-5.1); Sodium 139 mmol/L (136-145)
[2023-02-10] MEDS: levothyroxine 75 mcg Tablet PO (06:11)
[2023-02-10 07:42] VITALS: BP 91/43; PULSE 69; RESP 16; TEMP 36.4; O2SAT 99
[2023-02-10] MEDS: amoxicillin-clav 875-125 mg Tablet 1 TAB PO (08:25)
[2023-02-10] MEDS: pantoprazole 40 mg SDV IVP (08:25)
[2023-02-10 08:47] VITALS: PULSE 67; RESP 20; O2SAT 98
--- NOTE | 2023-02-10 10:28 | PC.SOCIAL ---
IMM update IMM updated with patient. Verbalized an understanding. Copy pg 2 provided. Initialled, dated, timed, and placed in chart.
--- NOTE | 2023-02-10 11:28 | P.DS_ITS ---
Discharge Providers Date of Admission: 02/03/23 20:06 Date of Discharge: February 10, 2023 Attending Provider at Admission: Theodore Felipe MD Attending Provider at Discharge: En Rahman MD Primary Care Provider: Zachary Celis MD Diagnoses at Discharge Discharge Diagnosis (1) Suspected lung cancer: Status: Acute Reason for Visit Reason for Visit: abnormal Labs Hospital Course Hospital Course 87-year-old male with past medical history significant for oxygen dependent COPD, requires 6 to 7 L of oxygen at baseline at home, diastolic CHF, history of bladder cancer, lung mass, alpha-1 antitrypsin COPD, A-fib on Coumadin presented with shortness of breath, altered mental status, and supratherapeutic INR. Patient was given FFP, INR was reversed down to 2, at the time of discharge Coumadin was discontinued and Eliquis was added. Patient was diagnosed with pneumonia for which he required broad-spectrum antibiotics which were de-escalated to Augmentin, his hemoglobin remained stable, he was experiencing mild hemoptysis however no active GI bleed. We also treated him for cellulitis of left lower extremity, no signs of DVT, ultrasound showed resolving hematoma Metabolic encephalopathy resolved, patient was kept on full CODE STATUS, goals of care discussed multiple times with the patient and his family, patient is stating that in case of further worsening he would like to stay home and stay among his loved ones, he might consider palliative care down the road but for now he is not ready yet. After multiple family discussions, patient and family both decided to pursue histopathological diagnosis, Dr. Peraza was consulted, patient went for biopsy on 02/09 currently review operative note from that date. Initially patient was reluctant to go for chemotherapy as well however he would like to consider chemotherapy after knowing the diagnosis With PT he required minimal assistance, he might be able to go home with home health services, he has been accepted by home health services, as per the family patient had very poor living conditions, there were a lot of roaches and some other concerns from people living on his property. Overall patient seems to be very noncompliant, it is very hard to communicate with him sometimes because of his hearing difficulty, however he does carry capacity to make decisions for himself, [place] state who is leaning towards comfort care in case of further worsening because of his multiple comorbid conditions At baseline he is requiring 5 to 6 L of oxygen, because of his noncompliance he has stopped taking his alpha-1 antitrypsin that he was taking weekly every Monday, his previous records showed that he was on Lupron everyday, and Lucas Physical Exam Narrative: Muscle mass loss Laying supine Awake and alert Currently on 5 L Wheezing improved Hemodynamically stable Awake and alert Nonfocal neuro exam Urinary Catheter Management: Spencer: Cath Placed During This Visit: yes Reason for Continuing Indwelling Catheter: Acute Urinary Retention or Obstruction Urinary Catheter Date of Insertion: 02/04/23 Urinary Catheter Time of Insertion: 02:30 Discharge Data Studies Completed and Pending Completed Studies During Hospitalization Category Date Time Status CT abdomen pelvis w con* [id number] Stat Cat Scan 02/03/23 17:[address] chest wo con [id number] Stat Cat Scan 02/03/23 18:29 Completed CXRP [XR chest 1V portable [id number]] Routine Exams 02/09/23 09:38 [place] [id number] Routine Ultrasound 02/04/23 20:33 Completed CV. echo complete* [id number] Routine Ultrasound 02/04/23 06:00 Completed Pending at discharge Category Date Time Status ABO/Rh Type Stat Lab 02/03/23 17:03 Results Bronch Washing Culture & GS Routine Lab 02/09/23 08:10 Results Complete Crossmatch Stat Lab 02/03/23 17:03 Results FFP [Frozen Plasma FZ <24 1st Cont] Routine Lab 02/03/23 17:03 Results Leukocyte Reduced RBC Routine Lab 02/03/23 17:03 Results Occult Blood Stool [Immunochemical Fecal OCB] Stat Lab 02/03/23 12:43 Ordered Sputum Culture and Gram Stain Routine Lab 02/09/23 11:40 Ordered Type and Screen Stat Lab 02/03/23 17:03 Results Cytology [PTH] Routine Pth 02/09/23 08:10 Received Pathology: Surgical [PTH] Routine Pth 02/09/23 09:08 Received Radiology Impressions Abdomen/Pelvis CT 02/03/23 17:01 IMPRESSION: 1. Diverticulosis of the colon without diverticulitis. 2. Larger 4.4 cm paratracheal lymph node. A malignant neoplastic process is not excluded. 3. Right lower lobe opacities most likely represents pneumonia or aspiration. 4. Ground-glass opacities in the left lung base could represent pneumonia or pulmonary edema. 5. Stable fluid density lesion in the right retrocrural location. This could represent a congenital cyst or low-density lymph nodes. 6. Stable 7 mm left upper lobe pulmonary nodule. Near 2 year stability favors a benign process. COMMENTS: 1. Consistent with the [employer]'s Incidental Findings Committee white paper (J Am Marlene Radiol 2018): Any incidental renal lesion less than 1 cm or classified as too small to characterize, or any incidental cystic renal lesion characterized as simple-appearing, is likely benign. No follow-up imaging is recommended for these lesions per consensus recommendations based on imaging criteria. 2. For patients with an IVC filter, recommend assessment for a management plan for the patient's IVC filter. If there is no established management plan, recommend referral to an interventional clinician on a nonemergent basis for evaluation. Chest CT 02/03/23 18:29 IMPRESSION: 1. Masslike consolidation in the infrahilar right lower lobe with filling defects in the bronchi. This could represent pneumonia but a neoplastic process is not excluded. Follow-up with bronchoscopy or tissue sampling is recommended. 2. New nodules in the right upper and middle lobes and stable 7 mm lingular nodule. Metastatic disease is not excluded. 3. Patchy pneumonia throughout the right lung. 4. Ground-glass opacities in the left lung could represent pulmonary edema or pneumonia. 5. Prominent mediastinal, right paratracheal, and retrocrural lymph nodes. Malignant neoplasm or metastasis is not excluded. Venous Duplex 02/04/23 20:33 IMPRESSION: No evidence of deep vein thrombosis. Chest X-Ray 02/09/23 09:38 Impression: 1. Patchy right lower lobe opacity which may represent a combination of pneumonia, atelectasis and effusion. 2. Cardiomegaly and atherosclerosis. 3. Chronic interstitial change in both lungs. 4. Complex cardiac pacemaker and intracardiac leads. Laboratory Results WBC 5.4 10^3/uL (4.0-10.0) 02/10/23 04:58 RBC 2.59 10^6/uL (4.1-5.3) L 02/10/23 04:58 Hgb 8.0 g/dL (11.7-16.6) L 02/10/23 04:58 Hct 27.0 % (42.0-52.0) L 02/10/23 04:58 MCV 104.2 fl (80-94) H 02/10/23 04:58 MCH 30.9 pg (28.0-34.0) 02/10/23 04:58 MCHC 29.6 g/dL (30.0-36.0) L 02/10/23 04:58 RDW 15.5 % (12.1-15.1) H 02/10/23 04:58 Plt Count 284 10^3/cmm (130-400) 02/10/23 04:58 MPV 10.5 fL (7.4-10.4) H 02/10/23 04:58 Neut % (Auto) 68.0 % 02/10/23 04:58 Lymph % (Auto) 19.3 % 02/10/23 04:58 [place] % (Auto) 10.7 % 02/10/23 04:58 Eos % (Auto) 0.9 % 02/10/23 04:58 Baso % (Auto) 0.0 % 02/10/23 04:58 Neut # (Auto) 3.70 10^3/uL (1.8-7.7) 02/10/23 04:58 Lymph # (Auto) 1.1 10^3/uL (0.8-4.8) 02/10/23 04:58 [place] # (Auto) 0.6 10^3/uL (0.2-0.9) 02/10/23 04:58 Eos # (Auto) 0.1 10^3/uL (0.0-0.8) 02/10/23 04:58 Baso # (Auto) 0.0 10^3/uL (0.0-0.1) 02/10/23 04:58 Nucleated RBC % (auto) 0 % 02/10/23 04:58 Nucleated RBCs # 0.0 /100WBC 02/10/23 04:58 PT 19.60 SECONDS (12.1-14.9) H 02/06/23 05:05 INR 1.60 (0.8-1.2) H 02/06/23 05:05 APTT 163.7 SECONDS (23.9-36.7) H* 02/03/23 15:49 Specimen Type Arterial 02/04/23 00:54 Sample Site Radial, right 02/04/23 00:54 ABG pH 7.40 (7.35-7.45) 02/04/23 00:54 ABG pCO2 57.7 mmHg (35-45) H 02/04/23 00:54 ABG pO2 66.8 mmHg (80.0-100.0) L 02/04/23 00:54 ABG HCO3 35.3 mmol/L (22-26) H 02/04/23 00:54 ABG Base Excess 9.1 mmol/L (-2.0-2.0) H 02/04/23 00:54 Jl Test Pos 02/04/23 00:54 Hematocrit 26.7 % (42-52) L 02/04/23 00:54 O2 Delivery Device Nc 02/04/23 00:54 O2 Liters/Min 5.0 % 02/04/23 00:54 Dispatcher [employer] Jewel 02/04/23 00:54 Sodium 139 mmol/L (136-145) 02/10/23 04:58 Potassium 4.7 mmol/L (3.5-5.1) 02/10/23 04:58 Chloride 102 mmol/L (98-107) 02/10/23 04:58 Carbon Dioxide 31 mmol/L (22-29) H 02/10/23 04:58 Anion Gap 10.7 (5-19) 02/10/23 04:58 BUN 21 mg/dL (8-23) 02/10/23 04:58 Creatinine 0.5 mg/dL (0.7-1.2) L 02/10/23 04:58 GFR Calculation Not Reportable 02/10/23 04:58 Glucose 105 mg/dL (65-115) 02/10/23 04:58 Estimat Average Glucose 114 02/03/23 15:49 Hemoglobin A1c 5.6 % (4.0-6.0) 02/03/23 15:49 Calculated Osmolality 291 mOsm/kg (285-295) 02/10/23 04:58 Lactic Acid 0.7 mmol/L (0.5-2.2) 02/03/23 21:32 Calcium 8.0 mg/dL (8.5-10.5) L 02/10/23 04:58 Phosphorus 2.9 mg/dL (2.5-4.5) 02/04/23 05:21 Magnesium 1.8 mg/dL (1.7-2.3) 02/04/23 05:21 Iron 43 ug/dL (59-158) L 02/03/23 16:48 TIBC 237 mcg/dl 02/03/23 16:48 % Saturation 18.1 % (20-50) L 02/03/23 16:48 Unsat Iron Binding 194 ug/dL (112-347) 02/03/23 16:48 Ferritin 414 ng/mL (30-400) H 02/03/23 16:48 Total Bilirubin 0.8 mg/dL (0.15-1.2) 02/05/23 04:14 AST 24 U/L (0-40) 02/05/23 04:14 ALT 10 U/L (0-41) 02/05/23 04:14 Alkaline Phosphatase 89 U/L (40-130) 02/05/23 04:14 Troponin T Baseline 21 ng/L (0-15) H 02/03/23 15:49 Troponin T 120 Minute 19.04 ng/L (0-15) H 02/03/23 18:02 Delta Troponin T -1.96 ABS# (0-10) L 02/03/23 18:02 Troponin T Hi Sens 6Hr 19.64 ng/L (0-15) H 02/03/23 21:32 Troponin T Hi Sens 6Hr Delta -1.36 ng/L (0-12) L 02/03/23 21:32 NT-Pro-B Natriuret Pep 2409 pg/mL (0-450) H 02/03/23 16:48 Total Protein 6.0 g/dL (6.6-8.7) L 02/05/23 04:14 Albumin 2.8 g/dL (3.5-5.2) L 02/05/23 04:14 Globulin 3.2 g/dL (1.3-4.6) 02/05/23 04:14 Triglycerides 83 mg/dL (0-150) 02/03/23 16:48 Cholesterol 128 mg/dL (0-200) 02/03/23 16:48 LDL Cholesterol, Calc 66 mg/dL (50-129) 02/03/23 16:48 HDL Cholesterol 45 mg/dL (60-100) L 02/03/23 16:48 LDL/HDL Ratio 1.47 RATIO (0.00-3.22) 02/03/23 16:48 Cholesterol/HDL Ratio 2.84 mg/dL (1.0-5.00) 02/03/23 16:48 Vitamin B12 1118 pg/mL (232-1245) 02/03/23 16:48 Folate > 20.0 ng/mL (4.5-32.2) 02/03/23 22:34 Procalcitonin 0.03 ng/mL (0-0.5) 02/03/23 16:48 TSH 4.71 uIU/mL (0.27-4.20) H 02/03/23 16:48 Urine Color [place] (Yellow) 02/03/23 Unknown Urine Appearance Clear (CLEAR) 02/03/23 Unknown Urine pH 5 (5-7) 02/03/23 Unknown Ur Specific [place] 1.010 (1.005-1.030) 02/03/23 Unknown Urine Protein Neg (Negative) 02/03/23 Unknown Urine Glucose (UA) Norm (Normal) 02/03/23 Unknown Urine Ketones Negative (Negative) 02/03/23 Unknown Urine Blood 2+ (Negative) H 02/03/23 Unknown Urine Nitrate Negative (Negative) 02/03/23 Unknown Urine Bilirubin 1+ (Negative) H 02/03/23 Unknown Urine Urobilinogen 4 mg/dL (Negative) H 02/03/23 Unknown Ur Leukocyte Esterase Negative (Negative) 02/03/23 Unknown Urine RBC 5-10 /hpf (0-2) H 02/03/23 Unknown Urine WBC None /hpf (0-5) 02/03/23 Unknown Ur Squamous Epith Cells 0-4 /hpf (0-5) H 02/03/23 Unknown Amorphous Sediment Not Reportable 02/03/23 Unknown Urine Bacteria None /hpf (NONE) 02/03/23 Unknown Bronch Specimen Source Right upper lobe 02/09/23 08:10 Bronchial Fluid Color Slight pink 02/09/23 08:10 Bronchial Fluid Appearance Bloody (CLEAR) 02/09/23 08:10 Bronchial Fluid WBC 29 /uL 02/09/23 08:10 Bronchial Fluid RBC 4 10^3/uL 02/09/23 08:10 Bronch Cells Counted 200 02/09/23 08:10 Bronchial Neutrophils 34.00 % (0.9-2.3) H 02/09/23 08:10 Bronchial Lymphocytes 7.00 % (10.71-12.91) L 02/09/23 08:10 Bronchial Eosinophils 2.00 % (0.13-0.25) H 02/09/23 08:10 Bronchial Macrophages 57.00 % (83.6-86.8) L 02/09/23 08:10 Bronchial Diff Comment Yes 02/09/23 08:10 Urine Opiates Screen Negative ng/mL (Negative) 02/03/23 Unknown Ur Barbiturates Screen Negative ng/mL (Negative) 02/03/23 Unknown Ur Phencyclidine Scrn Negative ng/mL (Negative) 02/03/23 Unknown Ur Amphetamines Screen Negative ng/mL (Negative) 02/03/23 Unknown U Benzodiazepines Scrn Negative ng/mL (Negative) 02/03/23 Unknown Urine Cocaine Screen Negative ng/mL (Negative) 02/03/23 Unknown U Marijuana (THC) Screen Negative ng/mL (Negative) 02/03/23 Unknown Ethyl Alcohol < 10 mg/dL (0-10) 02/03/23 16:48 SARS-CoV-2 Ag (Rapid) negative (Negative) 02/09/23 12:43 Blood Type O Positive 02/03/23 17:03 Rho(D) Type Positive 02/03/23 17:03 Antibody Screen Negative 02/03/23 17:03 Crossmatch See Detail 02/03/23 17:03 Vitals Last Vital Signs Temp 97.6 F 02/10/23 07:42 Pulse 67 02/10/23 08:47 Resp 20 H 02/10/23 08:47 BP 91/43 02/10/23 07:42 Pulse Ox 98 02/10/23 08:47 O2 Del Method Nasal Cannula 02/10/23 08:47 O2 Flow Rate 4 02/10/23 08:47 FiO2 30 02/08/23 20:18 Discharge Plan Discharge Patient Disposition: Xfer SNF Condition: Fair Prescriptions: New albuterol sulfate 90 mcg/actuation HFA aerosol inhaler 2 inh inhalation Q8H PRN (Reason: shortness of breath or wheezing) Qty: 8.5 4RF Spiriva Respimat 2.5 mcg/actuation mist 2 inh inhalation DAILY 30 Days Qty: 4 4RF Eliquis 5 mg tablet 5 mg PO BID Qty: 60 4RF fluticasone propion-salmeterol [Advair HFA] 115-21 mcg/actuation HFA aerosol inhaler 2 inh inhalation BID 30 Days Qty: 12 4RF Continued (DME) oxygen-air delivery systems Device See Rx Instructions .ROUTE .MEDSUPPLY Qty: 1 Rx Instructions: As directed Metamucil 3.4 gram/5.4 gram powder 1 tbsp PO DAILY Rx Instructions: mix into at least 8 oz of water or juice before administering albuterol sulfate 2.5 mg /3 mL (0.083 %) solution for nebulization 2.5 mg INHALATION Q4H PRN (Reason: shortness of breath or wheezing) Qty: 180 5RF azelastine 137 mcg (0.1 %) aerosol,spray 1 spray intranasal BID 30 Days Qty: 30 4RF Rx Instructions: administer into each nostril vitamin B complex Tablet 1 tab PO DAILY Vitamin B-1 50 mg Tablet 50 mg PO DAILY Vitamin B-6 50 mg Capsule 50 mg PO DAILY levothyroxine 88 mcg Tablet 88 mcg PO DAILY Discontinued potassium chloride 10 mEq capsule, extended release 10 meq PO DAILY warfarin 10 mg tablet 10 mg PO DAILY Rx Instructions: 10 mg daily everyday but monday clindamycin HCl 150 mg capsule 450 mg PO Q8H warfarin 5 mg tablet See Rx Instructions .ROUTE .COMPLEX Rx Instructions: 5 mg orally on monday Discharge Orders: Discharge Order (Routine); Ordered 02/10/23 Ordered By: En Rahman Referrals: Sancho Peraza MD [Physician] - 7-10 days Zachary Celis MD [Primary Care Provider] - 02/15/23 3:00 pm Discharge Attestations Time Spent in Discharge Care*: greater than 30 min Quality Metrics Clinical Quality Measures [ No reported AMI, CVA or VTE this stay] Coding Level of Care Code Acute Code for Chg Fwd Diagnoses Suspected lung cancer R68.89
[2023-02-10 12:02] VITALS: BP 107/51; PULSE 71; RESP 20; TEMP 36.6; O2SAT 98
--- NOTE | 2023-02-10 12:17 | PC.NURSE ---
report was called to [facility]
[2023-02-10 13:30] VITALS: BP 107/51; PULSE 71; RESP 20; TEMP 36.6; O2SAT 98
== END 2023-02-10 13:31 | disposition skilled nursing facility (03) | DRG 853 ==
LOC: ER 20:12 → ICU 20:33 → MEDSURG 02-05 14:55
PROVIDERS: Family Medicine; Internal Medicine Pulmonary Disease; Admitting Provider Family Medicine; Emergency Provider Emergency Medicine; PCP Family Medicine; Visit Provider Internal Medicine
PROC: 0BJ08ZZ Inspection of Tracheobronchial Tree, Via Natural or Artificial Opening Endoscopic (ICD-10-PCS; CPT 31622; principal; 2023-02-09 07:00)
PROC: BB4BZZZ Ultrasonography of Pleura (ICD-10-PCS; 2023-02-09 07:00)
DX: A41.9 Sepsis, unspecified organism (principal); G93.41 Metabolic encephalopathy; J18.9 Pneumonia, unspecified organism; I21.A1 Myocardial infarction type 2; J96.22 Acute and chronic respiratory failure with hypercapnia; J96.21 Acute and chronic respiratory failure with hypoxia; I50.32 Chronic diastolic (congestive) heart failure; I48.21 Permanent atrial fibrillation; L03.116 Cellulitis of left lower limb; T17.890A Other foreign object in other parts of respiratory tract causing asphyxiation, initial encounter; R04.89 Hemorrhage from other sites in respiratory passages; D64.9 Anemia, unspecified; J43.9 Emphysema, unspecified; Z99.81 Dependence on supplemental oxygen; I11.0 Hypertensive heart disease with heart failure; C67.9 Malignant neoplasm of bladder, unspecified; R91.8 Other nonspecific abnormal finding of lung field; E88.01 Alpha-1-antitrypsin deficiency; Z79.51 Long term (current) use of inhaled steroids; R79.1 Abnormal coagulation profile; X58.XXXA Exposure to other specified factors, initial encounter; Z79.899 Other long term (current) drug therapy; Z91.148 Patient's other noncompliance with medication regimen for other reason; I25.5 Ischemic cardiomyopathy; H91.93 Unspecified hearing loss, bilateral; I95.9 Hypotension, unspecified; Z87.891 Personal history of nicotine dependence; Z95.0 Presence of cardiac pacemaker; I25.2 Old myocardial infarction; N40.1 Benign prostatic hyperplasia with lower urinary tract symptoms; I25.10 Atherosclerotic heart disease of native coronary artery without angina pectoris; G47.33 Obstructive sleep apnea (adult) (pediatric); E78.5 Hyperlipidemia, unspecified
CPT/HCPCS: 31624; 31625; 31645; 31653; 36415; 36430; 51702; 71045; 71250; 74177; 80048; 80053; 80061; 80306; 80307; 80503; 81001; 82607; 82728; 82746; 82803; 83036; 83540; 83550; 83605; 83735; 83880; 84100; 84145; 84443; 84484; 85014; 85018; 85025; 85610; 85730; 86850; 86900; 86920; 86927; 87040; 87070; 87205; 87426; 87641; 88112; 88305; 89050; 93005; 93306; 93970; 94640; 94664; 96376; 97161; 97530; 99285; C9113; J1100; J1940; J2270; J2370; J2405; J2543; J2704; J2920; J3010; J3370; J3430; J7030; J7608; J7626; P9016; P9017; Q9967

== ENCOUNTER → 2023-03-16 12:42 | Outpatient (BNVA) | payer MEDICARE, BC, SELFPAY | PROVIDERS: PCP Family Medicine; Visit Provider Internal Medicine Pulmonary Disease | DX: J44.9 Chronic obstructive pulmonary disease, unspecified (principal); C34.90 Malignant neoplasm of unspecified part of unspecified bronchus or lung; J96.11 Chronic respiratory failure with hypoxia; Z99.81 Dependence on supplemental oxygen; Z87.891 Personal history of nicotine dependence; I25.5 Ischemic cardiomyopathy; I50.9 Heart failure, unspecified; I48.20 Chronic atrial fibrillation, unspecified; Z79.01 Long term (current) use of anticoagulants; E88.01 Alpha-1-antitrypsin deficiency; Z95.810 Presence of automatic (implantable) cardiac defibrillator; I25.10 Atherosclerotic heart disease of native coronary artery without angina pectoris; I25.2 Old myocardial infarction | CPT/HCPCS: 99214 ==

== ENCOUNTER → 2023-03-17 10:42 | Outpatient (BNVA) | payer MEDICARE, BC, SELFPAY | PROVIDERS: PCP Family Medicine; Visit Provider Internal Medicine Cardiovascular Disease | DX: I42.9 Cardiomyopathy, unspecified (principal); I11.0 Hypertensive heart disease with heart failure; I50.22 Chronic systolic (congestive) heart failure; I25.10 Atherosclerotic heart disease of native coronary artery without angina pectoris; I48.21 Permanent atrial fibrillation; Z87.891 Personal history of nicotine dependence; Z95.0 Presence of cardiac pacemaker; Z79.01 Long term (current) use of anticoagulants | CPT/HCPCS: 99214 ==

== ENCOUNTER → 2023-09-01 09:54 | Outpatient (BNVA) | payer MEDICARE, BC, SELFPAY | PROVIDERS: PCP Family Medicine; Visit Provider Internal Medicine Pulmonary Disease | DX: J43.2 Centrilobular emphysema (principal); J96.11 Chronic respiratory failure with hypoxia; J96.12 Chronic respiratory failure with hypercapnia; I25.10 Atherosclerotic heart disease of native coronary artery without angina pectoris; I48.20 Chronic atrial fibrillation, unspecified; Z79.01 Long term (current) use of anticoagulants; I50.9 Heart failure, unspecified; Z87.891 Personal history of nicotine dependence | CPT/HCPCS: 99214 ==

== ENCOUNTER → 2023-09-15 10:40 | Outpatient (BNVA) | payer MEDICARE, BC, SELFPAY | PROVIDERS: PCP Family Medicine; Visit Provider Internal Medicine Cardiovascular Disease | DX: I42.9 Cardiomyopathy, unspecified (principal); I11.0 Hypertensive heart disease with heart failure; I50.22 Chronic systolic (congestive) heart failure; I25.10 Atherosclerotic heart disease of native coronary artery without angina pectoris; I48.21 Permanent atrial fibrillation; Z79.01 Long term (current) use of anticoagulants | CPT/HCPCS: 99214 ==

== ENCOUNTER 2024-03-17 00:22 | Emergency (ER) | payer MEDICARE, SELFPAY ==
[2024-03-17 00:25] VITALS: BP 105/65; PULSE 73; RESP 20; TEMP 36.8; O2SAT 92; BMI 37.1
[2024-03-17] MEDS: oxymetazoline 0.05% Nasal Spray 15 mL 2 SPRAY NOSTRIL-B (00:45)
[2024-03-17 01:16] LABS: Basophils % 0.9 %; Eosinophils # 0.2 10^3/uL (0.0-0.8); Eosinophils % 4.8 %; Lymphocytes # 1.5 10^3/uL (0.8-4.8); Mean Corpuscular HGB Conc 30.9 g/dL (30-55); Mean Corpuscular Hemoglobin 31.7 pg (27-33); Mean Corpuscular Volume 102.6 fl (82-101); Mean Platelet Volume 11.6 fL (7.4-10.4); Monocytes # 0.5 10^3/uL (0.2-0.9); Monocytes % 10.3 %; Neutrophils # 2.23 10^3/uL (1.8-7.7); Neutrophils % 50.8 %; Nucleated Red Blood Cells % 0 %; Platelet Count 149 10^3/cmm (157-399); Red Blood Count 3.12 10^6/uL (3.85-5.65); Red Cell Distribution Width 13.7 % (12.1-15.1); White Blood Count 4.39 10^3/uL (3.29-11.43)
[2024-03-17 01:22] VITALS: BP 128/64; PULSE 69; RESP 16; O2SAT 100
[2024-03-17 01:32] LABS: INR 2.08 (0.8-1.2)
[2024-03-17 01:36] LABS: Alanine Aminotransferase 8 U/L (0-41); Albumin Level 3.7 g/dL (3.5-5.2); Alkaline Phosphatase 100 U/L (40-130); Anion Gap 9.7 (5-19); Aspartate Amino Transferase 20 U/L (0-40); Blood Urea Nitrogen 28 mg/dL (8-23); Calcium 8.8 mg/dL (8.5-10.5); Carbon Dioxide 35 mmol/L (22-29); Chloride 100 mmol/L (98-107); Creatinine Clr Calc Pharmacy 70.8425; Globulin 3.5 g/dL (1.3-4.6); Glucose 110 mg/dL (65-115); Osmolality Calculated 296 mOsm/kg (285-295); Potassium 4.7 mmol/L (3.5-5.1); Sodium 140 mmol/L (136-145); Total Bilirubin 0.3 mg/dL (0.15-1.2); Total Protein 7.2 g/dL (6.6-8.7)
--- NOTE | 2024-03-17 01:56 | ED_ITS ---
HPI - Epistaxis 2 General: Chief complaint: Epistaxis Stated complaint: nose bleed Time Seen by Provider: 03/17/24 00:37 History of Present Illness: 88-year-old male who is on Coumadin clinical rn nically. He presents with 3 days of nosebleeding on and off from the right nare. It is painless. He is on oxygen chronically. Bleeding is stopped currently. He was running down the back of his throat earlier. He skipped his Coumadin dose last evening. Associated symptoms: Deny fever(s) or vomiting Review of Systems 2 Const: Denies: fever(s) ENMT: Reports: epistaxis; Denies: throat pain, bleeding gums or nasal obstruction Card: Denies: chest pain Resp: Denies: dyspnea GI: Denies: vomiting PFSH ED 2 PFSH: Medical History Suspected lung cancer Sinusitis Diverticulitis Cellulitis and abscess of right leg Weakness Constipation Bronchiectasis Hemoptysis Hypothyroidism Nasal obstruction COPD (chronic obstructive pulmonary disease) Cellulitis Sepsis Acute encephalopathy NSTEMI (non-ST elevated myocardial infarction) Pneumonia Acute on chronic respiratory failure with hypoxia and hypercapnia Hypotension Anemia Lung mass Symptomatic anemia Supratherapeutic INR Chronic respiratory failure with hypoxia Lung nodule BPH loc w urin obs/LUTS Bladder cancer Lung cancer Dyslipidemia Myocardial infarction Obstructive sleep apnea Oxygen dependent Emphysema (subcutaneous) (surgical) resulting from a procedure Dyspnea CHF (congestive heart failure) [id number] deficiency Anticoagulant long-term use Coronary artery disease Pacemaker Atrial fibrillation Hypertension Erectile dysfunction 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 Malignant neoplasm of posterior wall of urinary bladder Surgical History H/O varicose vein ligation and stripping History of tonsillectomy H/O adenoidectomy Hx of removal of cyst H/O bilateral cataract extraction Status post biventricular cardiac pacemaker insertion Family History Mother CAD (coronary artery disease) Social History Smoking and tobacco/nicotine status: former use of tobacco/nicotine Quit status (tobacco/nicotine): has quit using Year quit tobacco: 1994 - 1.5 PPD x 40 Years Alcohol intake: current Alcohol intake frequency: 0-2 Drinks per Day Substance/Drug Use: never Adopted: No Caregiver/support person: No Lives independently: No Household members: spouse Marital status: / Current occupational status: retired Do you think of yourself as: Straight/Heterosexual Current gender identity: Male Physical Exam 2 Const: COMMON NORMALS: no acute distress GENERAL APPEARANCE: cooperative and frail appearing; not ill appearing HENMT: COMMON NORMALS: normocephalic, atraumatic and Normal external nose present HEAD & SCALP: normocephalic and atraumatic FACE & SINUS: sinuses nontender and face symmetric; no edema NOSE: Normal external nose present and Epistaxis present on the right dried blood present and source not visualized; no active bleeding and no clots present Eye: COMMON NORMALS: EOMs intact bilaterally Chest: CHEST: Yes Symmetrical chest wall rise Resp: COMMON NORMALS: normal respiratory effort and No use of accessory muscles Course 2 Vital Signs: Vital signs: Vital Signs Temperature 98.2 F 03/17/24 02:10 Pulse Rate 69 03/17/24 02:10 Respiratory Rate 16 03/17/24 02:10 Blood Pressure 128/64 03/17/24 02:10 Pulse Oximetry 100 03/17/24 02:10 Oxygen Delivery Me thod Nasal Cannula 03/17/24 00:25 MDM - Epistaxis Medical Decision Making The patient has been stable here. No rebleeding. His hemoglobin is higher than it was a month ago. His INR is 2. Skipping 1 dose is appropriate. He was given Afrin here. We will continue this. As he is on oxygen, I would like not to pack his nose unless absolutely necessary. Lab Data 03/17/24 01:03 03/17/24 01:03 Laboratory Results WBC 4.39 10^3/uL (3.29-11.43) 03/17/24 01:03 RBC 3.12 10^6/uL (3.85-5.65) L 03/17/24 01:03 Hgb 9.90 g/dL (11.27-16.99) L 03/17/24 01:03 Hct 32.0 % (37-53) L 03/17/24 01:03 MCV 102.6 fl (82-101) H 03/17/24 01:03 MCH 31.7 pg (27-33) 03/17/24 01:03 MCHC 30.9 g/dL (30-55) 03/17/24 01:03 RDW 13.7 % (12.1-15.1) 03/17/24 01:03 Plt Count 149 10^3/cmm (157-399) L 03/17/24 01:03 MPV 11.6 fL (7.4-10.4) H 03/17/24 01:03 Neut % (Auto) 50.8 % 03/17/24 01:03 Lymph % (Auto) 33.0 % 03/17/24 01:03 [place] % (Auto) 10.3 % 03/17/24 01:03 Eos % (Auto) 4.8 % 03/17/24 01:03 Baso % (Auto) 0.9 % 03/17/24 01:03 Neut # (Auto) 2.23 10^3/uL (1.8-7.7) 03/17/24 01:03 Lymph # (Auto) 1.5 10^3/uL (0.8-4.8) 03/17/24 01:03 [place] # (Auto) 0.5 10^3/uL (0.2-0.9) 03/17/24 01:03 Eos # (Auto) 0.2 10^3/uL (0.0-0.8) 03/17/24 01:03 Baso # (Auto) 0.0 10^3/uL (0.0-0.1) 03/17/24 01:03 Nucleated RBC % (auto) 0 % 03/17/24 01:03 Nucleated RBCs # 0.0 /100WBC 03/17/24 01:03 PT 24.20 SECONDS (12.1-14.9) H 03/17/24 01:03 INR 2.08 (0.8-1.2) H 03/17/24 01:03 Sodium 140 mmol/L (136-145) 03/17/24 01:03 Potassium 4.7 mmol/L (3.5-5.1) 03/17/24 01:03 Chloride 100 mmol/L (98-107) 03/17/24 01:03 Carbon Dioxide 35 mmol/L (22-29) H 03/17/24 01:03 Anion Gap 9.7 (5-19) 03/17/24 01:03 BUN 28 mg/dL (8-23) H 03/17/24 01:03 Creatinine 0.5 mg/dL (0.7-1.2) L 03/17/24 01:03 GFR Calculation Not Reportable 03/17/24 01:03 Glucose 110 mg/dL (65-115) 03/17/24 01:03 Calculated Osmolality 296 mOsm/kg (285-295) H 03/17/24 01:03 Calcium 8.8 mg/dL (8.5-10.5) 03/17/24 01:03 Total Bilirubin 0.3 mg/dL (0.15-1.2) 03/17/24 01:03 AST 20 U/L (0-40) 03/17/24 01:03 ALT 8 U/L (0-41) 03/17/24 01:03 Alkaline Phosphatase 100 U/L (40-130) 03/17/24 01:03 Total Protein 7.2 g/dL (6.6-8.7) 03/17/24 01:03 Albumin 3.7 g/dL (3.5-5.2) 03/17/24 01:03 Globulin 3.5 g/dL (1.3-4.6) 03/17/24 01:03 Blood Type O Positive 03/17/24 01:03 Rho(D) Type Rh positive 03/17/24 01:03 Antibody Screen Negative 03/17/24 01:03 All radiology interpretation(s) finalized by discharge Discharge Plan Discharge Patient Disposition: Home Clinical Impression: Epistaxis Condition: Stable Prescriptions: No Action (DME) oxygen-air delivery systems Device See Rx Instructions .ROUTE .MEDSUPPLY Qty: 1 Rx Instructions: As directed Metamucil 3.4 gram/5.4 gram powder 1 tbsp PO DAILY Rx Instructions: mix into at least 8 oz of water or juice before administering Advair HFA 115-21 mcg/actuation HFA aerosol inhaler 2 inh inhalation BID 30 Days Qty: 12 4RF Spiriva Respimat 2.5 mcg/actuation mist 2 inh inhalation DAILY 30 Days Qty: 4 4RF albuterol sulfate 2.5 mg /3 mL (0.083 %) solution for nebulization 2.5 mg INHALATION Q4H PRN (Reason: shortness of breath or wheezing) Qty: 180 5RF azelastine 137 mcg (0.1 %) aerosol,spray 1 spray intranasal BID 30 Days Qty: 30 4RF Rx Instructions: administer into each nostril vitamin B complex Tablet 1 tab PO DAILY Vitamin B-1 50 mg Tablet 50 mg PO DAILY Vitamin B-6 50 mg Capsule 50 mg PO DAILY levothyroxine 88 mcg Tablet 88 mcg PO DAILY albuterol sulfate 90 mcg/actuation HFA aerosol inhaler 2 inh inhalation Q8H PRN (Reason: shortness of breath or wheezing) Qty: 8.5 4RF Eliquis 5 mg tablet 5 mg PO BID Qty: 60 4RF Mucinex Fast-Max Chest-Congest 100 mg/5 mL liquid 200 mg PO Q6H PRN (Reason: congestion) Qty: 1000 0RF Discharge Orders: Discharge ED (Routine); Ordered 03/17/24 Ordered By: Tyler Castellon Referrals: Zachary Celis MD [Primary Care Provider] - 1-3 days Patient Instructions: Nosebleed (ED), Opioid Safety, Pain Management Activity Restrictions/Additional Instructions: Use the Afrin you were dispensed, 2 sprays to the nose on each side twice daily for the next 3 days, then stop. Return for repeated nosebleeds that continue despite continuous clamping without letting the pressure off for at least 30 minutes. See your doctor next week. Coding Level of Care Code ED Risk Control Analyst for Kelly Valiente
[2024-03-17 02:10] VITALS: BP 128/64; PULSE 69; RESP 16; TEMP 36.8; O2SAT 100
== END 2024-03-17 02:56 | disposition home or self-care (01) ==
PROVIDERS: Emergency Provider Emergency Medicine; PCP Family Medicine
DX: R04.0 Epistaxis (principal); Z79.01 Long term (current) use of anticoagulants; Z87.891 Personal history of nicotine dependence; Z95.0 Presence of cardiac pacemaker; J44.9 Chronic obstructive pulmonary disease, unspecified; I25.2 Old myocardial infarction; Z85.51 Personal history of malignant neoplasm of bladder; Z85.118 Personal history of other malignant neoplasm of bronchus and lung; E78.5 Hyperlipidemia, unspecified; I11.0 Hypertensive heart disease with heart failure; I50.9 Heart failure, unspecified; I25.10 Atherosclerotic heart disease of native coronary artery without angina pectoris; Z99.81 Dependence on supplemental oxygen
CPT/HCPCS: 36415; 80053; 85025; 85610; 86850; 86900; 99283

== ENCOUNTER → 2024-03-22 09:42 | Outpatient (BNVA) | payer MEDICARE, SELFPAY | PROVIDERS: PCP Family Medicine; Visit Provider Internal Medicine Cardiovascular Disease | DX: I25.2 Old myocardial infarction (principal); E78.5 Hyperlipidemia, unspecified; I25.10 Atherosclerotic heart disease of native coronary artery without angina pectoris; Z95.0 Presence of cardiac pacemaker; I48.21 Permanent atrial fibrillation; E88.01 Alpha-1-antitrypsin deficiency; C67.2 Malignant neoplasm of lateral wall of bladder; Z99.81 Dependence on supplemental oxygen; R91.8 Other nonspecific abnormal finding of lung field; J44.9 Chronic obstructive pulmonary disease, unspecified; J96.11 Chronic respiratory failure with hypoxia; J96.12 Chronic respiratory failure with hypercapnia; Z87.891 Personal history of nicotine dependence; I11.0 Hypertensive heart disease with heart failure; I50.9 Heart failure, unspecified | CPT/HCPCS: 99214 ==

== ENCOUNTER → 2024-04-18 12:30 | Outpatient (BNVA) | payer MEDICARE, SELFPAY | PROVIDERS: PCP Family Medicine; Visit Provider Internal Medicine Critical Care Medicine | DX: J45.50 Severe persistent asthma, uncomplicated; Z79.52 Long term (current) use of systemic steroids; G47.33 Obstructive sleep apnea (adult) (pediatric); J96.11 Chronic respiratory failure with hypoxia; J96.12 Chronic respiratory failure with hypercapnia; J43.2 Centrilobular emphysema; E88.01 Alpha-1-antitrypsin deficiency; I27.20 Pulmonary hypertension, unspecified; R91.8 Other nonspecific abnormal finding of lung field | CPT/HCPCS: 99214 ==

== ENCOUNTER 2024-07-24 20:00 | Outpatient (CLI) | payer MEDICARE, SELFPAY | END 2024-07-24 20:01 | disposition home or self-care (01) | LOC: SLEEP 23:28 | PROVIDERS: PCP Family Medicine; Visit Provider Internal Medicine Critical Care Medicine | DX: G47.33 Obstructive sleep apnea (adult) (pediatric) (principal); Z99.89 Dependence on other enabling machines and devices | CPT/HCPCS: 95810 ==

== ENCOUNTER → 2024-08-14 11:30 | Outpatient (BNVA) | payer MEDICARE, SELFPAY | PROVIDERS: PCP Family Medicine; Visit Provider Podiatrist Foot & Ankle Surgery | DX: L60.3 Nail dystrophy (principal); I73.9 Peripheral vascular disease, unspecified | CPT/HCPCS: 11721; 99203 ==

== ENCOUNTER → 2024-09-06 11:59 | Outpatient (BNVA) | payer MEDICARE, SELFPAY | PROVIDERS: PCP Family Medicine; Visit Provider Nurse Practitioner Family | DX: I11.0 Hypertensive heart disease with heart failure (principal); I50.23 Acute on chronic systolic (congestive) heart failure; I48.21 Permanent atrial fibrillation; I25.10 Atherosclerotic heart disease of native coronary artery without angina pectoris; Z95.0 Presence of cardiac pacemaker; R09.02 Hypoxemia; Z87.891 Personal history of nicotine dependence; Z79.01 Long term (current) use of anticoagulants | CPT/HCPCS: 99214 ==